=== PATIENT | female | born 1950 | race Caucasian/White ===

== ENCOUNTER 2018-07-18 09:26 | Inpatient (IN) ==
--- NOTE | 2018-07-18 10:38 | Emergency Department Note ---
Wound/Laceration HPI - General Chief Complaint: Wound/Laceration Stated Complaint: right ankle wound Time Seen by Provider: 07/18/18 10:04 Source: patient Mode of arrival: wheelchair Limitations: physical limitation - History of Present Illness HPI Narrative: 67-year-old female in ED referred from wound care due to open right ankle wound. Dr. Rowan assessed patient this morning in his clinic and advised she'll need surgical cleaning. May 2018 patient had right ankle fracture which was surgically repaired. Patient does live in assisted living in [place]. - Related Data Home Medications Medication Instructions Recorded Confirmed Acetaminophen [Tylenol] 650 mg PO Q4-6HP PRN 06/03/18 06/03/18 Calcium Carbonate [Tums] 200 mg PO PRN PRN 06/03/18 06/03/18 Clotrimazole Crm 1% [Mycelex Crm 1 dose TOPICAL ONCE 06/03/18 07/18/18 1%] Docusate Sodium [Colace] 100 mg PO BID PRN 06/03/18 07/18/18 Lactobacillus Acidophilus 1 each PO DAILY 06/03/18 07/18/18 [Acidophilus Lactobacilli] Levothyroxine [Synthroid] 75 mcg PO DAILY 06/03/18 07/18/18 Lisinopril [Zestril] 2.5 mg PO HS 06/03/18 06/03/18 OLANZapine [Olanzapine Odt] 20 mg PO HS 06/03/18 07/18/18 OXcarbazepine [Trileptal] 300 mg PO BID 06/03/18 06/03/18 Polyethylene Glycol 3350 [Miralax] 17 gm PO DAILY PRN 06/03/18 07/18/18 Pravastatin [Pravachol] 20 mg PO HS 06/03/18 07/18/18 QUEtiapine FUMARATE [Quetiapine 300 mg PO HS 06/03/18 07/18/18 Fumarate ER] Ranitidine HCl [Acid Corporate Legal Secretary] 150 mg PO BID 06/03/18 06/03/18 clonazePAM [KlonoPIN] 1 mg PO TID 06/03/18 07/18/18 oxyCODONE HCL [Oxycodone HCl] 5 mg PO PRN PRN 06/03/18 07/18/18 Cephalexin [Keflex] 500 mg PO QID 07/18/18 07/18/18 Emollient Base [Emollient] 500 gm TP PRN PRN 07/18/18 07/18/18 QUEtiapine FUMARATE [Seroquel Xr] 50 mg PO BID 07/18/18 07/18/18 Sodium Fluoride [Prevident 5000] 100 ml DT BID 07/18/18 07/18/18 Previous Rx's Medication Instructions Recorded Hydrocodone/APAP 7.5/325Mg [[place] 1 - 2 tab PO Q4HP PRN #60 tab 06/03/18 7.5-325Mg] Allergies Allergy/AdvReac Type Severity Reaction Status Date / Time chlorpromazine Allergy Mild Hives Verified 07/18/18 09:31 [From Thorazine] alcohol Allergy Unknown Unknown Verified 07/18/18 09:31 Review of Systems All systems ED: reviewed and negative except as stated. Past Medical History - Past Medical History Medical history: Reports: DM (type 2), GERD, hyperlipidemia, hypothyroidism Psychiatric history: Reports: anxiety, depression, bipolar, schizophrenia - Social History smoking status: Never smoker Physical Exam Limitations: no limitations General appearance: alert, in no apparent distress Head: atraumatic, normocephalic, normal inspection Eye: Present: normal appearance, PERRL, EOMI. Absent: conjunctival injection ENT: normal oropharynx, mucous membranes moist, TM's normal bilaterally, normal external ear exam Neck: Present: normal inspection. Absent: tenderness, lymphadenopathy Chest: Present: normal inspection, symmetric chest wall rise. Absent: tenderness Respiratory: Present: normal lung sounds bilaterally. Absent: respiratory distress, rales/crackles, wheezes Cardiovascular: Present: regular rate, normal rhythm. Absent: systolic murmur, diastolic murmur Abdominal: Present: soft, normal bowel sounds. Absent: distention, tenderness, guarding, rebound, rigidity Ankle: Present: other (right medial ankle 4cm x3cm x 0.4 depth Full thickness purulent discharge) Neurological: Present: alert, oriented X3 Psychiatric: Present: flat affect, poor eye contact Skin: Present: warm, dry, normal color. Absent: cool, diaphoretic Course Vital Signs Temperature 97.3 F 07/18/18 09:26 Pulse Rate 80 07/18/18 09:26 Respiratory Rate 18 07/18/18 09:26 Blood Pressure 118/81 07/18/18 09:26 Pulse Oximetry (%) 95 07/18/18 09:26 Temperature 97.3 F 07/18/18 09:26 Pulse Rate 80 07/18/18 09:26 Respiratory Rate 18 07/18/18 09:26 Blood Pressure 118/81 07/18/18 09:26 Pulse Oximetry (%) 95 07/18/18 09:26 Wound/Laceration - [facility] Narrative Medical decision making narrative: WBC 5.7, lactic acid 0.9, sodium 142, potassium 4.8, BUN 29, creatinine 1.4, alkaline phosphatase 212, C reactive protein 1.6, ESR still pending. Patient was provided 1 L normal saline. Consulted with who is in contact with Dr. Velasquez. He advised he would do the surgery tomorrow, if we could get her admitted. was briefly consulted by . assessed patient and admitted. - Medical Records Medical records reviewed: Yes I reviewed the patient's medical records. 06/03/18 patient had right closed bimalleolar ankle fracture, patient went to surgery and had open treatment internal fixation of right bimalleolar closed ankle fracture conducted by Dr. Velasquez. Patient was discharged home same day. - Lab Data Result diagrams: 07/18/18 09:45 07/18/18 09:45 Lab Results 07/18/18 07/18/18 07/18/18 Range/Units 09:45 09:45 09:45 WBC 5.7 (4.5-11.0) K/mcL RBC 4.51 (4.00-5.20) M/mcL Hgb 13.3 (12.0-15.0) g/dL Hct 41.4 (36.0-48.0) % MCV 91.8 (80.0-100.0) fL MCH 29.4 (26.0-34.0) pg MCHC 32.1 (31.0-36.0) g/dL RDW 14.5 (11.5-14.5) % Plt Count 208 (140-440) K/mcL MPV 8.1 (7.4-10.4) fL Gran % 65.9 (38.0-78.0) % Lymph % (Auto) 20.7 (15.5-49.0) % [place] % (Auto) 6.8 (1.0-12.0) % Eos % (Auto) 5.9 (0.0-7.0) % Baso % (Auto) 0.7 (0.0-2.0) % Gran # 3.7 (1.8-8.0) K/mcL Lymph # (Auto) 1.2 L (1.5-4.8) K/mcL [place] # (Auto) 0.4 (0.1-0.9) K/mcL Eos # (Auto) 0.3 (0.0-0.7) K/mcL Baso # (Auto) 0 (0.0-0.3) K/mcL ESR 47 H (0-20) mm/hr VBG Lactic Acid 0.9 (0.5-2.0) mmol/L Sodium 142 (133-145) mmol/L Potassium 4.8 (3.3-5.1) mmol/L Chloride 103 (96-108) mmol/L Carbon Dioxide 26 (22-30) mmol/L Anion Gap 13.0 (8-16) BUN 29 H (8-23) mg/dl Creatinine 1.4 H (0.6-1.1) mg/dl GFR Calculation 39 Glucose 100 (70-105) mg/dL Calcium 10.0 (8.6-10.4) mg/dl Total Bilirubin 0.2 (0.0-1.0) mg/dL AST 11 (0-37) U/l ALT 10 (0-40) U/l Alkaline Phosphatase 212 H (39-117) U/L C-Reactive Protein 1.6 H (0.0-0.8) mg/dl Total Protein 8.4 (5.9-8.4) gm/dL Albumin 4.2 (3.2-5.2) gm/dL Globulin 4.2 H (2.2-3.7) gm/dL Albumin/Globulin Ratio 1.0 (1.0-2.3) - Radiology Data Radiology results reviewed: Yes I reviewed the patient's radiology results. right ankle XR: TECHNIQUE: AP, oblique, lateral right ankle COMPARISON: None. FINDINGS: Status post open reduction and internal fixation of a bimalleolar fracture. There is a dynamic compression plate on the distal right fibula. There are 2 cancellous screws within the medial malleolus. There is soft tissue irregularity overlying the medial aspects of the right ankle. There are 2 areas of lucency within the medial cortex of the distal right tibia. Osteomyelitis is possible. There is no soft tissue gas. Distal fibula is negative except for the plate and screw fixation device. Talus is negative. No plain film evidence for tibiotalar joint effusion. Calcaneus is negative. IMPRESSION: 1. Two focal lucencies within the medial cortex of the distal right tibia. Osteomyelitis is possible 2. Status post open reduction and internal fixation of bimalleolar fracture. Disposition Pt seen by PLANT CARE WORKER/PA only: No (Chin) Clinical Impression: Infection of joint of ankle Disposition: Xfer As Inpt ([facility]) Condition: Fair Time of Disposition: 15:02
--- NOTE | 2018-07-18 10:46 | XRay Report ---
CLINICAL INFORMATION: Status post open reduction and internal fixation of right ankle fracture. Procedure was performed on 06/12/2018. Surgical wound has not healed TECHNIQUE: AP, oblique, lateral right ankle COMPARISON: None. FINDINGS: Status post open reduction and internal fixation of a bimalleolar fracture. There is a dynamic compression plate on the distal right fibula. There are 2 cancellous screws within the medial malleolus. There is soft tissue irregularity overlying the medial aspects of the right ankle. There are 2 areas of lucency within the medial cortex of the distal right tibia. Osteomyelitis is possible. There is no soft tissue gas. Distal fibula is negative except for the plate and screw fixation device. Talus is negative. No plain film evidence for tibiotalar joint effusion. Calcaneus is negative. IMPRESSION: 1. Two focal lucencies within the medial cortex of the distal right tibia. Osteomyelitis is possible 2. Status post open reduction and internal fixation of bimalleolar fracture. Interpreted and Authenticated by: Dung Wilson 07/18/18
[2018-07-18 10:53] LABS: Basophils # (Auto) 0 K/mcL (0.0-0.3); Basophils % (Auto) 0.7 % (0.0-2.0); Eosinophils # (Auto) 0.3 K/mcL (0.0-0.7); Eosinophils % (Auto) 5.9 % (0.0-7.0); Granulocytes % (Auto) 65.9 % (38.0-78.0); Lymphocytes # (Auto) 1.2 K/mcL (1.5-4.8); Lymphocytes % (Auto) 20.7 % (15.5-49.0); Mean Cell Volume 91.8 fL (80.0-100.0); Mean Corpuscular HGB Conc 32.1 g/dL (31.0-36.0); Monocytes # (Auto) 0.4 K/mcL (0.1-0.9); Monocytes % (Auto) 6.8 % (1.0-12.0); Platelet Count 208 K/mcL (140-440); RBC 4.51 M/mcL (4.00-5.20); Red Cell Distribution Width 14.5 % (11.5-14.5)
[2018-07-18 11:15] LABS: ALT/SGPT 10 U/l (0-40); Albumin 4.2 gm/dL (3.2-5.2); Alkaline Phosphatase 212 U/L (39-117); Blood Urea Nitrogen 29 mg/dl (8-23); C-Reactive Protein 1.6 mg/dl (0.0-0.8)
[2018-07-18] MEDS ORDERED: 0.9 % SODIUM CHLORIDE 1,000 ML IV ONE (11:27)
[2018-07-18 12:36] LABS: Erythrocyte Sedimentation Rate 47 mm/hr (0-20)
--- NOTE | 2018-07-18 14:30 | Internal Med History&Physical ---
Medical - H&P: HPI Patient information: Note initiated : 07/18/18 at 2:26 pm Service Date, if different from initiated Date: [] Patient: Yanni Topete a 67 y/o F admitted on for Rt Ankle Wound. Chief Complaint: [] History of present illness: Ms. Topete is a 67 year old F with history of bipolar disorder, chronic kidney disease presents to the hospital today for evaluation of her right lower extremity wound. The patient had history of fall in May, at which time she twisted her ankle and developed a complex fracture of the right ankle. She was operated by Dr. Velasquez in May and underwent an open reduction and internal fixation of the fracture. The patient was discharged subsequently. The patient apparently was managing her right lower extremity wound and blister however the patient's wound got progressively worse. There was some pussy discharge and she was seen in the wound care clinic today. In the wound care clinic on speaking with the wound care physician there was pus, and the wound looked infected. The patient was therefore sent to the emergency room for further evaluation. In the emergency room the patient is afebrile, hemodynamically stable, labs are stable kidney function is at baseline at around 1.3 -1.4. Patient has minimal pain on the right lower extremity with movement otherwise no other acute complaints or concerns. The wound care physician is the primary provider managing this patient, patient to be taken to the OR for cleanup and debridement by Dr. Velasquez tomorrow morning. Hospitalist has been consulted to help manage the logistics of inpatient stay. Wound care physician has been consulted by the wound care provider. Review of systems: CONSTITUTIONAL: No weight loss, fever, chills, weakness or fatigue. HEENT: Eyes: No visual loss, blurred vision, double vision or yellow sclerae. Ears, Nose, Throat: No hearing loss, sneezing, congestion, runny nose or sore throat. SKIN: No rash or itching. CARDIOVASCULAR: No chest pain, chest pressure or chest discomfort. No palpitations or edema. RESPIRATORY: No shortness of breath, cough or sputum. GASTROINTESTINAL: No nausea, vomiting or diarrhea or constipation. No abdominal pain or blood in stools No Pat. GENITOURINARY: Denies Burning on urination. Blood in urine, or foul smelling urine NEUROLOGICAL: No headache, dizziness, syncope, paralysis, tremors, numbness or tingling in the extremities. No change in bowel or bladder control. MUSCULOSKELETAL: No muscle, back pain, joint pain or stiffness. Right leg pain. HEMATOLOGIC: No bleeding or bruising. No enlarged nodes PSYCHIATRIC: bipolar disroder, anxiety present. ENDOCRINOLOGIC: No reports of sweating, cold or heat intolerance. No polyuria or polydipsia. ALLERGIES: No hives, eczema or rhinitis. Skin: No rash, no jaundice, cyanosis or pallor. Medical - H&P: PMH Medical history: Bipolar disorder CKD Hypothyroidism Overweight. BMI 27.9 Surgical history: right foot ankle surgery, this may right hip fracture last year Social history: lives in [facility] ambulates with walker no h/o etoh use no h/o smoking Medical - H&P: Meds Home Medications Medication Instructions Recorded Confirmed Type Acetaminophen [Tylenol] 650 mg PO Q4-6HP PRN 06/03/18 06/03/18 History Calcium Carbonate [Tums] 200 mg PO PRN PRN 06/03/18 06/03/18 History Clotrimazole Crm 1% [Mycelex Crm 1 dose TOPICAL ONCE 06/03/18 07/18/18 History 1%] Docusate Sodium [Colace] 100 mg PO BID PRN 06/03/18 07/18/18 History Hydrocodone/APAP 7.5/325Mg [[place] 1 - 2 tab PO Q4HP PRN #60 tab 06/03/18 Rx 7.5-325Mg] Lactobacillus Acidophilus 1 each PO DAILY 06/03/18 07/18/18 History [Acidophilus Lactobacilli] Levothyroxine [Synthroid] 75 mcg PO DAILY 06/03/18 07/18/18 History Lisinopril [Zestril] 2.5 mg PO HS 06/03/18 06/03/18 History OLANZapine [Olanzapine Odt] 20 mg PO HS 06/03/18 07/18/18 History OXcarbazepine [Trileptal] 300 mg PO BID 06/03/18 06/03/18 History Polyethylene Glycol 3350 [Miralax] 17 gm PO DAILY PRN 06/03/18 07/18/18 History Pravastatin [Pravachol] 20 mg PO HS 06/03/18 07/18/18 History QUEtiapine FUMARATE [Quetiapine 300 mg PO HS 06/03/18 07/18/18 History Fumarate ER] Ranitidine HCl [Acid Food Technician] 150 mg PO BID 06/03/18 06/03/18 History clonazePAM [KlonoPIN] 1 mg PO TID 06/03/18 07/18/18 History oxyCODONE HCL [Oxycodone HCl] 5 mg PO PRN PRN 06/03/18 07/18/18 History Cephalexin [Keflex] 500 mg PO QID 07/18/18 07/18/18 History Emollient Base [Emollient] 500 gm TP PRN PRN 07/18/18 07/18/18 History QUEtiapine FUMARATE [Seroquel Xr] 50 mg PO BID 07/18/18 07/18/18 History Sodium Fluoride [Prevident 5000] 100 ml DT BID 07/18/18 07/18/18 History Allergies Allergy/AdvReac Type Severity Reaction Status Date / Time chlorpromazine Allergy Mild Hives Verified 07/18/18 09:31 [From Thorazine] alcohol Allergy Unknown Unknown Verified 07/18/18 09:31 Medical - H&P: Exam - Constitutional Vitals: Temp Pulse Resp BP Pulse Ox 97.3 F 80 18 118/81 95 07/18/18 09:26 07/18/18 09:26 07/18/18 09:26 07/18/18 09:26 07/18/18 09:26 Exam: GENERAL: The patient is a well-developed, well-nourished in no apparent distress. Is alert and oriented x3. VITAL SIGNS: Reviewed and as noted elsewhere. HEENT: Head is normocephalic and atraumatic. Extraocular muscles are intact. Pupils are equal, round, and reactive to light. Nares appeared normal. Mouth appears any without lesions. Mucous membranes are moist. NECK: Normal to inspection, Supple, No lymphadenopathy or thyromegaly. LUNGS: Air entry equal on both sides, no wheezing, crackles or rhonchi noted. No accessory muscles of respiration HEART: Regular rate and rhythm normal, S1 and S2 heard, no Gallop, S3 or Rub Noted, No Gross murmur heard. ABDOMEN: Soft, nontender, and nondistended. Positive bowel sounds. No hepatosplenomegaly was noted. EXTREMITIES: No cyanosis, clubbing, rash, lesions or edema. Right leg, has large ifnected ulcer on the medial malleolus, yellowish base, so me foul smell, hardware for joint repair visible, see pictures for further detail. NEUROLOGIC: Cranial nerves II through XII are grossly intact. Motor and Sensory System Grossly Intact PSYCHIATRIC: flat affect, Normal Mood. Appropriate Behavior. SKIN: No ulceration or wounds noted, No jaundice, No rash noted. Medical - H&P: Reslt - Labs CBC & Chem 7: 07/18/18 09:45 07/18/18 09:45 Labs: Short CBC 07/18/18 Range/Units 09:45 WBC 5.7 (4.5-11.0) K/mcL Hgb 13.3 (12.0-15.0) g/dL Hct 41.4 (36.0-48.0) % Plt Count 208 (140-440) K/mcL BMP 07/18/18 09:45 Sodium 142 Potassium 4.8 Chloride 103 Carbon Dioxide 26 BUN 29 H Creatinine 1.4 H Glucose 100 Calcium 10.0 Liver Function 07/18/18 Range/Units 09:45 Total Bilirubin 0.2 (0.0-1.0) mg/dL AST 11 (0-37) U/l ALT 10 (0-40) U/l Alkaline Phosphatase 212 H (39-117) U/L Albumin 4.2 (3.2-5.2) gm/dL Medical - H&P: A/P - Narrative A/P Narrative: A/P] Post operative infection Distal Tibia 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 -Plan per Dr Velasquez and Dr Keane -Patient has no e/o systemic infection, I do not see urgent need for antibiotics at this time. -Antibiotic Management per Dr Winter Pre op eval -Patient has poor effort tolerance due to her present condition, -no chest pain, no shortness of breath -RCRI score of 0 -Low risk from cardiovascualr stand point, get baseline EKG and X ray chest CKD -Creat at baseilne, attributed to use of lithium as per patient, med list do es nto show lithium, will check levels to confirm. Bipolar disorder -stable, resume home meds Overweight/ BMI 27.9 Hypothyriodism -stable chr conditions, outpatient follow up DVT hep x 1, hold for surgery tomorrow Diet REgular, NPO MN Full code.
[2018-07-18] MEDS ORDERED: NALOXONE HCL 0.4 MG/ML VIAL IV PRN (14:56)
[2018-07-18] MEDS ORDERED: HEPARIN 5,000 UNIT/ML VIAL SQ ONE (14:56)
[2018-07-18] MEDS ORDERED: ONDANSETRON 4 MG/2 ML VIAL IV PRN (14:56)
[2018-07-18] MEDS ORDERED: POLYETHYLENE GLYCOL 3350 17 GM PACKET PO PRN (14:56)
--- NOTE | 2018-07-18 15:28 | XRay Report ---
INDICATION: Preoperative evaluation TECHNIQUE: AP chest x-ray,portable upright COMPARISON: None FINDINGS:There is right convex thoracic scoliosis. No acute or focal pulmonary parenchymal infiltrate. No parenchymal mass. Heart size and vascularity are normal. Lamar and mediastinum are negative. There is no pleural fluid. No acute abnormality. IMPRESSION: No acute abnormality Interpreted and Authenticated by: Dung Wilson 07/18/18
[2018-07-18] MEDS: clonazePAM 1 MG TABLET PO SCH ×2 (15:30→21:01)
[2018-07-18] MEDS: LACTATED RINGERS 1,000 ML IV SCH (15:31)
--- NOTE | 2018-07-18 17:27 | General Surgery Consult Note ---
History of Present Illness Patient information: Note initiated : 07/18/18 at 5:19 pm Service Date, if different from initiated Date: [] Patient: Yanni Topete 67 y/o F admitted on 07/18/18 for Rt Ankle Wound. Chief Complaint: [] Consult date: 07/18/18 Requesting physician: Ronald Merritt (wound management right lower medial leg) History of present illness: Patient is a 67-year-old female. She is status post ORIF of right ankle for a traumatic bimalleolar injury due to a fall, requiring ORIF with 2 screws over the medial malleolus and a long plate for fibula and screws for the lateral malleolus fracture. Surgery was over 5 weeks ago. Patient is a resident of assisted living facility in [place], [place]. Caregiver brought her to the wound clinic for evaluation of nonhealing open wound with copious green purulent drainage, necrotic soft tissue and exposed bone and joint space. Keflex antibiotic is NOT helping her. Patient is nonsmoker and nonalcoholic. I discussed her presentation with ANGELICA Lao, operating surgeon. Plan is to have this patient admitted to the hospitalist service and consult wound care, infectious disease and orthopedic services. Dr. Velasquez is planning on taking this patient to the operating room tomorrow for debridement, pulse lavage irrigation and deep tissue samples for cultures and sensitivities. Preoperative orders for skin preparation and antibiotic choice recommendations are entered in EHR. Preoperative surgical consent orders are awaited from Dr. Velasquez, operating surgeon. Medications and Allergies Home Medications Medication Instructions Recorded Confirmed Type Acetaminophen [Tylenol] 650 mg PO Q4-6HP PRN 06/03/18 06/03/18 History Calcium Carbonate [Tums] 200 mg PO PRN PRN 06/03/18 06/03/18 History Clotrimazole Crm 1% [Mycelex Crm 1 dose TOPICAL ONCE 06/03/18 07/18/18 History 1%] Docusate Sodium [Colace] 100 mg PO BID PRN 06/03/18 07/18/18 History Hydrocodone/APAP 7.5/325Mg [[place] 1 - 2 tab PO Q4HP PRN #60 tab 06/03/18 Rx 7.5-325Mg] Lactobacillus Acidophilus 1 each PO DAILY 06/03/18 07/18/18 History [Acidophilus Lactobacilli] Levothyroxine [Synthroid] 75 mcg PO DAILY 06/03/18 07/18/18 History Lisinopril [Zestril] 2.5 mg PO HS 06/03/18 06/03/18 History OLANZapine [Olanzapine Odt] 20 mg PO HS 06/03/18 07/18/18 History OXcarbazepine [Trileptal] 300 mg PO BID 06/03/18 06/03/18 History Polyethylene Glycol 3350 [Miralax] 17 gm PO DAILY PRN 06/03/18 07/18/18 History Pravastatin [Pravachol] 20 mg PO HS 06/03/18 07/18/18 History QUEtiapine FUMARATE [Quetiapine 300 mg PO HS 06/03/18 07/18/18 History Fumarate ER] Ranitidine HCl [Acid [place]] 150 mg PO BID 06/03/18 06/03/18 History clonazePAM [KlonoPIN] 1 mg PO TID 06/03/18 07/18/18 History oxyCODONE HCL [Oxycodone HCl] 5 mg PO PRN PRN 06/03/18 07/18/18 History Cephalexin [Keflex] 500 mg PO QID 07/18/18 07/18/18 History Emollient Base [Emollient] 500 gm TP PRN PRN 07/18/18 07/18/18 History QUEtiapine FUMARATE [Seroquel Xr] 50 mg PO BID 07/18/18 07/18/18 History Sodium Fluoride [Prevident 5000] 100 ml DT BID 07/18/18 07/18/18 History Allergies Allergy/AdvReac Type Severity Reaction Status Date / Time chlorpromazine Allergy Mild Hives Verified 07/18/18 09:31 [From Thorazine] alcohol Allergy Unknown Unknown Verified 07/18/18 09:31 Apple Allergy Unknown Unknown Verified 07/18/18 17:28 Exam Temp Pulse Resp BP Pulse Ox 97.3 F 84 16 116/75 92 07/18/18 09:26 07/18/18 15:01 07/18/18 15:01 07/18/18 15:01 07/18/18 15:01 - General physical appearance well developed, well nourished, no distress - Eyes PERRL, normal ocular movement - ENT normal pinna, normal nares, normal mucosa, no congestion - Head Head exam IM: Present: atraumatic, normal inspection, normocephalic - Neck no masses, trachea midline - Cardiovascular Cardiovascular exam IM: Present: normal rate and rhythm - Respiratory clear to auscultation - Abdomen Abdomen: Present: soft, non tender, bowel sounds - Integumentary Present: other (Chronic posttraumatic inflammatory changes right lower half of leg. Open wound right medial leg or the malleolus side with exposed necrotic soft tissue, open joint space and green-yellow purulent drainage. There are 2 other open wounds proximal to this open wound. Granulation base. ) - Neurologic Present: other (No focal neurological deficits. Detailed examination NOT done. ) - Musculoskeletal Present: other (NWB. OPEN post surgical wound right lower medial leg with exposed necrotic tissue, bone and joint space.) - Psychiatric Present: oriented to time, oriented to person, oriented to place (Per CG from [facility], Patient maryanne admitted to hospital and later to REHAB. ), speech is normal, memory intact Results - Labs 07/18/18 09:45 07/18/18 09:45 Abnormal lab results 07/18/18 07/18/18 Range/Units 09:45 09:45 Lymph # (Auto) 1.2 L (1.5-4.8) K/mcL ESR 47 H (0-20) mm/hr BUN 29 H (8-23) mg/dl Creatinine 1.4 H (0.6-1.1) mg/dl Alkaline Phosphatase 212 H (39-117) U/L C-Reactive Protein 1.6 H (0.0-0.8) mg/dl Globulin 4.2 H (2.2-3.7) gm/dL Diabetes panel 07/18/18 Range/Units 09:45 Sodium 142 (133-145) mmol/L Potassium 4.8 (3.3-5.1) mmol/L Chloride 103 (96-108) mmol/L Carbon Dioxide 26 (22-30) mmol/L BUN 29 H (8-23) mg/dl Creatinine 1.4 H (0.6-1.1) mg/dl Glucose 100 (70-105) mg/dL Calcium 10.0 (8.6-10.4) mg/dl AST 11 (0-37) U/l ALT 10 (0-40) U/l Alkaline Phosphatase 212 H (39-117) U/L Total Protein 8.4 (5.9-8.4) gm/dL Albumin 4.2 (3.2-5.2) gm/dL Calcium panel 07/18/18 Range/Units 09:45 Calcium 10.0 (8.6-10.4) mg/dl Albumin 4.2 (3.2-5.2) gm/dL Pituitary panel 07/18/18 Range/Units 09:45 Sodium 142 (133-145) mmol/L Potassium 4.8 (3.3-5.1) mmol/L Chloride 103 (96-108) mmol/L Carbon Dioxide 26 (22-30) mmol/L BUN 29 H (8-23) mg/dl Creatinine 1.4 H (0.6-1.1) mg/dl Glucose 100 (70-105) mg/dL Calcium 10.0 (8.6-10.4) mg/dl Adrenal panel 07/18/18 Range/Units 09:45 Sodium 142 (133-145) mmol/L Potassium 4.8 (3.3-5.1) mmol/L Chloride 103 (96-108) mmol/L Carbon Dioxide 26 (22-30) mmol/L BUN 29 H (8-23) mg/dl Creatinine 1.4 H (0.6-1.1) mg/dl Glucose 100 (70-105) mg/dL Calcium 10.0 (8.6-10.4) mg/dl Total Bilirubin 0.2 (0.0-1.0) mg/dL AST 11 (0-37) U/l ALT 10 (0-40) U/l Alkaline Phosphatase 212 H (39-117) U/L Total Protein 8.4 (5.9-8.4) gm/dL Albumin 4.2 (3.2-5.2) gm/dL All other labs normal. Assessment and Plan (1) Complication due to device, implant, or graft Assessment: CHRONIC SEPSIS after surgery with wound dehiscence at site of ORIF and hardware placement. Plan: Await OR surgical debridement, pulse lavage irrigation and deep tissue for cultures and sensitivity. WILL FOLLOW PATIENT POST OPERATIVELY FOR WOUND CARE, WOUND MANAGEMENT, VAC or other indicated intervention. Status: Acute Priority: High Qualifiers: Encounter type: initial encounter Qualified Code(s): T85.9XXA - Unspecified complication of internal prosthetic device, implant and graft, initial encounter
--- NOTE | 2018-07-18 20:07 | Consultation ---
DATE OF CONSULTATION: 07/18/2018 REASON FOR CONSULTATION: Right ankle wound evaluation REQUESTING PHYSICIAN: Dr. Mcdonald. CONSULTING PHYSICIAN: Dr. Velasquez. HISTORY: This is a 67-year-old female who fell injuring her ankle for which we did an open treatment and internal fixation of the ankle on 06/03/2018. She postoperatively continued to have some wound issues. She had some blistering. We were trying to just manage this conservatively. She then presented to the clinic last week looking significantly worse. My physician personnel assistant sent her to wound care for a wound consult. Dr. Mcdonald then contacted me today feeling that the patient needed surgical debridement. The patient does not have significant complaints other than the wound being difficult to heal. PAST MEDICAL HISTORY: Bipolar disorder, chronic kidney disease, hypothyroidism. PAST SURGICAL HISTORY: The right ankle surgery, 06/03/2018, does have a history of hip fracture surgery. MEDICATIONS: Tylenol, Colace, hydrocodone 7.5, levothyroxine, lisinopril, olanzapine, Trileptal, MiraLax, Pravachol, quetiapine, ranitidine, clonazepam, Keflex, Seroquel. ALLERGIES: CHLORPROMAZINE. SOCIAL HISTORY: She lives in a [facility] facility in [place]. No tobacco or alcohol use. REVIEW OF SYSTEMS: Negative for fever or chills. PHYSICAL EXAMINATION: VITAL SIGNS: On admission, temperature 97.3, pulse 80, respirations 18, blood pressure 118/81, pulse 95. GENERAL: She appears her stated age in no acute distress. EXTREMITIES: Right lower extremity on inspection reveals a skin discoloration. There is a large wound over the medial malleolus. Based off of pictures with some necrotic tissue, sensation intact at distal, and capillary refill is brisk. LABORATORY DATA: Her white blood cell count is normal at 5.7. However, her erythrocyte sedimentation rate is elevated at 47. Her C-reactive protein is 1.6. IMPRESSION: Infected right ankle wound with some necrosis nearly for a month and a half, status post open reduction internal fixation of a closed bimalleolar fracture in a 67-year-old female. PLAN: I will proceed with surgical irrigation and debridement tomorrow and likely start her on a wound VAC. At that point, vascular studies, I think, are reasonable given Dr. Keane's plan on consulting Dr. Ho. BJB:in Job ID: [id number] Doc ID: [id number] Fernando Velasquez MD
[2018-07-18] MEDS: Oxcarbazepine [Trileptal] 600 mg Tab PO SCH (21:00)
[2018-07-18] MEDS: FAMOTIDINE 20 MG TABLET PO SCH (21:01)
[2018-07-18] MEDS: OLANZapine 5 MG TABLET PO SCH (21:01)
[2018-07-18] MEDS: SIMVASTATIN 10 MG TABLET PO SCH (21:01)
[2018-07-18] MEDS: 0.9 % SODIUM CHLORIDE 10 ML SYRINGE IV SCH (21:02)
[2018-07-19] MEDS: LACTATED RINGERS 1,000 ML IV SCH ×2 (05:50→15:08)
[2018-07-19 06:17] LABS: Basophils # (Auto) 0 K/mcL (0.0-0.3); Basophils % (Auto) 0.7 % (0.0-2.0); Eosinophils # (Auto) 0.4 K/mcL (0.0-0.7); Eosinophils % (Auto) 8.1 % (0.0-7.0); Granulocytes % (Auto) 49.2 % (38.0-78.0); Lymphocytes # (Auto) 1.5 K/mcL (1.5-4.8); Lymphocytes % (Auto) 29.9 % (15.5-49.0); Mean Cell Volume 92.7 fL (80.0-100.0); Mean Corpuscular HGB Conc 31.8 g/dL (31.0-36.0); Monocytes # (Auto) 0.6 K/mcL (0.1-0.9); Monocytes % (Auto) 12.1 % (1.0-12.0); Platelet Count 172 K/mcL (140-440); RBC 3.91 M/mcL (4.00-5.20); Red Cell Distribution Width 14.6 % (11.5-14.5)
[2018-07-19 06:28] LABS: ALT/SGPT 7 U/l (0-40); Albumin 3.1 gm/dL (3.2-5.2); Albumin/Globulin Ratio 0.9 (1.0-2.3); Alkaline Phosphatase 179 U/L (39-117); Bilirubin,Direct < 0.2 mg/dL (0.0-0.3); Blood Urea Nitrogen 24 mg/dl (8-23); Gamma Glutamyl Transpeptidase 24 U/L (5-36); Uric Acid 6.2 mg/dL (2.5-8.0)
[2018-07-19] MEDS ORDERED: PIPERACILLIN SODIUM/TAZOBACTAM 3.375 GM in DEXTROSE 5% IN WATER 50 ML IV SCH (06:30)
[2018-07-19] MEDS ORDERED: VANCOMYCIN 1,000 MG in 0.9 % SODIUM CHLORIDE 250 ML IV SCH (06:30)
[2018-07-19] MEDS: LEVOTHYROXINE 75 MCG TABLET PO SCH (06:55)
[2018-07-19] MEDS: 0.9 % SODIUM CHLORIDE 10 ML SYRINGE IV SCH ×4 (06:55→21:48)
--- NOTE | 2018-07-19 07:14 | Emergency Department Note ---
ED Note Addendum Note Addendum: Agree with diagnosis and treatment and the need for admission
--- NOTE | 2018-07-19 08:29 | Infectious Disease Consult ---
History of Present Illness Patient information: Note initiated : 07/19/18 at 8:24 am Service Date, if different from initiated Date: [] Patient: Yanni Topete 67 y/o F admitted on 07/18/18 for Rt Ankle Wound. Chief Complaint: [] Consult date: 07/18/18 (evening) Requesting Physician: Ronald Merritt Reason for Consult: RT ankle infection Chief complaint: my right ankle surgery wound did not heal History of present illness: 67 year old lady with PMHx pertinent for: - right bimalleolar closed ankle fracture, s/p ORIF in 05/2018 - bipolar disorder - chronic kidney disease Pt was admitted to [facility] from wound care clinic for suspicion for right ankle osteomyelitis and hardware infection. Pt noticed that after her surgery right ankle wound did not heal. She was seen in wound care clinic on 07/18 from where she was asked to get admitted for surgical debridement at [facility]. Pt denied any fever, chills, n/v, trauma to the wound, contact with pets. She just remembers that the wound did not heal after surgery. She has been afebrile, with normal WBCs. She recieved periop Cefazolin IV, and was started on IV Vanc and IV Cefepime afterwards. Review of Systems All systems PM: reviewed and no additional remarkable complaints except as stated Past History Past family history: not pertinent to current presentation Past social history: lives by herself in a [facility]iary home in [place], [place] doesnot smoke, use alc or any IV drugs Medications and Allergies Home Medications Medication Instructions Recorded Confirmed Type Acetaminophen [Tylenol] 650 mg PO Q4-6HP PRN 06/03/18 06/03/18 History Calcium Carbonate [Tums] 200 mg PO PRN PRN 06/03/18 06/03/18 History Clotrimazole Crm 1% [Mycelex Crm 1 dose TOPICAL ONCE 06/03/18 07/18/18 History 1%] Docusate Sodium [Colace] 100 mg PO BID PRN 06/03/18 07/18/18 History Hydrocodone/APAP 7.5/325Mg [Bureau 1 - 2 tab PO Q4HP PRN #60 tab 06/03/18 Rx 7.5-325Mg] Lactobacillus Acidophilus 1 each PO DAILY 06/03/18 07/18/18 History [Acidophilus Lactobacilli] Levothyroxine [Synthroid] 75 mcg PO DAILY 06/03/18 07/18/18 History Lisinopril [Zestril] 2.5 mg PO HS 06/03/18 06/03/18 History OLANZapine [Olanzapine Odt] 20 mg PO HS 06/03/18 07/18/18 History OXcarbazepine [Trileptal] 300 mg PO BID 06/03/18 06/03/18 History Polyethylene Glycol 3350 [Miralax] 17 gm PO DAILY PRN 06/03/18 07/18/18 History Pravastatin [Pravachol] 20 mg PO HS 06/03/18 07/18/18 History QUEtiapine FUMARATE [Quetiapine 300 mg PO HS 06/03/18 07/18/18 History Fumarate ER] Ranitidine HCl [Acid Supervisor [employer]] 150 mg PO BID 06/03/18 06/03/18 History clonazePAM [KlonoPIN] 1 mg PO TID 06/03/18 07/18/18 History oxyCODONE HCL [Oxycodone HCl] 5 mg PO PRN PRN 06/03/18 07/18/18 History Cephalexin [Keflex] 500 mg PO QID 07/18/18 07/18/18 History Emollient Base [Emollient] 500 gm TP PRN PRN 07/18/18 07/18/18 History QUEtiapine FUMARATE [Seroquel Xr] 50 mg PO BID 07/18/18 07/18/18 History Sodium Fluoride [Prevident 5000] 100 ml DT BID 07/18/18 07/18/18 History Allergies Allergy/AdvReac Type Severity Reaction Status Date / Time chlorpromazine Allergy Mild Hives Verified 07/18/18 09:31 [From Thorazine] alcohol Allergy Unknown Unknown Verified 07/18/18 09:31 Apple Allergy Unknown Unknown Verified 07/18/18 17:28 Physical Examination Vital signs: Temp Pulse Resp BP Pulse Ox 36.9 C 86 18 110/63 94 07/19/18 06:47 07/19/18 03:44 07/19/18 06:47 07/19/18 06:47 07/19/18 06:47 General appearance: no acute distress Eyes pulmonary: nonicteric Auscultation: bilateral: clear Cardiovascular: other (s1 s2 normal) normal mental status, other (has resting tremor) Rt ankle: wrapped in dressing. Pictures prior to surgery reviewed with Dr. Mcdonald Results - Laboratory Findings CBC and BMP: 07/19/18 04:25 07/19/18 04:25 Abnormal lab findings: Abnormal Labs 07/18/18 07/18/18 07/19/18 09:45 09:45 04:25 RBC 3.91 L Hgb 11.5 L RDW 14.6 H [place] % (Auto) 12.1 H Eos % (Auto) 8.1 H Lymph # (Auto) 1.2 L ESR 47 H Chloride BUN 29 H Creatinine 1.4 H Alkaline Phosphatase 212 H C-Reactive Protein 1.6 H Albumin Globulin 4.2 H Albumin/Globulin Ratio 07/19/18 04:25 RBC Hgb RDW [place] % (Auto) Eos % (Auto) Lymph # (Auto) ESR Chloride 109 H BUN 24 H Creatinine 1.2 H Alkaline Phosphatase 179 H C-Reactive Protein Albumin 3.1 L Globulin Albumin/Globulin Ratio 0.9 L Assessment and Plan - Narrative A/P Narrative: A: 1. Deep infection of right ankle tissues and tibia with hardware involvement: Hx of ORIF approximately 7 weeks ago. - POD #0, s/p I & D and removal of 2 screws, with findings of "necrotic tendon and soft tissue with exposed screw heads and nonunion of the medial fracture" - operative Cx sent 2. No sepsis: q-SOFA score 0 Recommendations: - Start IV Vancomycin per pharmacy assisted dosing [target trough level before the 4th dose: 15-20] - Start IV Cefepime 2 gm q8 hrs - will deescalate per operative Cx - Consider PICC line placement - send MRSA nasal swab will follow Velasquez Winter M.D. Infectious diseases
[2018-07-19] MEDS ORDERED: LIDOCAINE HCL/PF 100 MG/5 ML SYRINGE IV ONE (09:46)
[2018-07-19] MEDS ORDERED: ONDANSETRON 4 MG/2 ML VIAL ONE (09:46)
[2018-07-19] MEDS ORDERED: PROPOFOL 200 MG/20 ML VIAL IV ONE (09:46)
[2018-07-19] MEDS ORDERED: MIDAZOLAM 5 MG/5 ML VIAL ONE (09:46)
[2018-07-19] MEDS ORDERED: DEXAMETHASONE 10 MG/ML VIAL ONE (09:46)
[2018-07-19] MEDS ORDERED: fentaNYL 100 MCG/2 ML VIAL IV ONE (09:46)
[2018-07-19] MEDS: FAMOTIDINE 20 MG TABLET PO SCH ×2 (10:14→21:42)
[2018-07-19] MEDS: clonazePAM 1 MG TABLET PO SCH ×3 (10:14→21:42)
[2018-07-19] MEDS: Oxcarbazepine [Trileptal] 600 mg Tab PO SCH ×2 (10:14→21:42)
[2018-07-19] MEDS: LACTOBACILLUS 1 CAPSULE PO SCH (10:14)
--- NOTE | 2018-07-19 10:32 | Brief Operative Note ---
Date of procedure: 07/19/18 Pre-op diagnosis: Left ankle open medial wound 7 weeks s/p bimalleolar ankle fx orif Post-op diagnosis: other (exposed medial screws with nonunion of medial malleolar fracture) Procedure: 1)Irrigation and debridement of Right medial ankle wound 2)Hardware removal deep of 2 medial malleolar screws with washers Grafts/Implants: No Anesthesia: GLMA Findings: exposed medial screws, nonunion of medial fracture Complications: none Surgeon: Fernando Velasquez Estimated blood loss (cc): 50 Specimens Removed/Pathology: other (hardware, cx & s, bone biopsy for permanent pathology and bone cx&s) Condition: stable Disposition: PACU
[2018-07-19] MEDS ORDERED: ceFAZolin 2 GM in DEXTROSE 5% IN WATER 50 ML IV SCH (10:45)
--- NOTE | 2018-07-19 10:56 | Internal Med Progress Note ---
Medical - PN: Subj Patient information: Note initiated : 07/19/18 at 10:53 am Service Date, if different from initiated Date: [] Patient: Yanni Topete a 67 y/o F admitted on 07/18/18 for Rt Ankle Wound. Chief Complaint: [] Interval history: Ms. Topete is a 67 year old F with history of bipolar disorder, chronic kidney disease presents to the hospital today for evaluation of her right lower extremity wound. The patient had history of fall in May, at which time she twisted her ankle and developed a complex fracture of the right ankle. She was operated by Dr. Velasquez in May and underwent an open reduction and internal fixation of the fracture. The patient was discharged subsequently. The patient apparently was managing her right lower extremity wound and blister however the patient's wound got progressively worse. There was some pussy discharge and she was seen in the wound care clinic today. In the wound care clinic on speaking with the wound care physician there was pus, and the wound l ooked infected. The patient was therefore sent to the emergency room for further evaluation. In the emergency room the patient is afebrile, hemodynamically stable, labs are stable kidney function is at baseline at around 1.3 -1.4. Patient has minimal pain on the right lower extremity with movement otherwise no other acute complaints or concerns. The wound care physician is the primary provider managing this patient, patient to be taken to the OR for cleanup and debridement by Dr. Velasquez tomorrow morning. Hospitalist has been consulted to help manage the logistics of inpatient stay. Wound care physician has been consulted by the wound care provider. 07/19 Pt seen examined, no acute issues reported labs stable awaiting surgery today Pertinent ROS: Denies headache, dizziness Denies chest pain, palpitations Denies cough or shortness of breath Denies abdominal pain, nausea or vomiting. - Constitutional Vitals: Vital Signs Temp Pulse Resp BP Pulse Ox 98.5 F 85 14 121/83 100 07/19/18 10:50 07/19/18 10:50 07/19/18 10:50 07/19/18 10:50 07/19/18 10:50 Period Temp Pulse Resp BP Sys/Hoyt Pulse Ox Last 24 Hr 97.5 F-98.5 F 73-98 14-23 88-145/58-83 90-100 Intake and Output 07/18/18 07/19/18 07/19/18 21:59 05:59 13:59 Intake Total 1000 1800 1000 Output Total 600 1351 1200 Balance 400 449 -200 Weight 220 lb Intake & Output: Intake & Output 07/18/18 07/19/18 07/19/18 21:59 05:59 13:59 Intake Total 1000 1800 1000 Output Total 600 1351 1200 Balance 400 449 -200 Weight 220 lb Intake: IV 1000 1000 Sodium Chloride 0.9% 1,000 ml @ 1000 Wide Open IV BOLUS ONE Rx#: [id number] Lactated Ringers 1,000 ml @ 84 1000 mls/hr IV .[id number] STACIE Rx#: [id number] Oral 800 IV - Manual Only 1000 Output: Void Amount 600 1350 1200 # of times incontinent of urine 1 Other: Urine Appearance Clear Clear Urine Color Bright Yellow Pale Urine Odor Normal Normal # Voids 1 1 Exam: Constitutional; Afebrile, cooperative, alert, not in distress. Respiratory system: Air Entry equal on both sides, No crackles or wheezing, no rhonchi. CVS- Rate rhythm regular, S1,S2 heard, no gallop, no rub. Abdomen- Soft nontender abdomen, no organomegaly, no tenderness, no guarding or rigidity, METAL FINISHER- AOOx3, moving all extremities, no gross focal deficit noted. Medical - PN: Obj Da - Labs CBC & Chem 7: 07/19/18 04:25 07/19/18 04:25 Labs: Abnormal Lab Results 07/19/18 07/19/18 07/18/18 04:25 04:25 09:45 RBC 3.91 L Hgb 11.5 L RDW 14.6 H [place] % (Auto) 12.1 H Eos % (Auto) 8.1 H Lymph # (Auto) ESR Chloride 109 H BUN 24 H 29 H Creatinine 1.2 H 1.4 H Alkaline Phosphatase 179 H 212 H C-Reactive Protein 1.6 H Albumin 3.1 L Globulin 4.2 H Albumin/Globulin Ratio 0.9 L 07/18/18 09:45 RBC Hgb RDW [place] % (Auto) Eos % (Auto) Lymph # (Auto) 1.2 L ESR 47 H Chloride BUN Creatinine Alkaline Phosphatase C-Reactive Protein Albumin Globulin Albumin/Globulin Ratio Meds: Medications Hydrocodone Bitart/Acetaminophen ([place] 7.5/325mg) 1 - 2 tab PO Q4HP PRN PRN Reason: Pain Clonazepam (Klonopin) 1 mg PO TID [facility] Last Admin: 07/19/18 10:14 Dose: Not Given Documented by: Docusate Sodium (Colace) 100 mg PO BID PRN PRN Reason: Constipation Famotidine (Pepcid) 20 mg PO BID [facility] Last Admin: 07/19/18 10:14 Dose: Not Given Documented by: Lactated Ringer's (Lactated Ringers) 1,000 mls @ 84 mls/hr IV .[id number] [facility] Last Admin: 07/19/18 05:50 Dose: 84 mls/hr Documented by: Cefazolin Sodium 2 gm/ (Dextrose) 50 mls @ 100 mls/hr IV Q8H [facility]; Protocol Lactobacillus Rhamnosus (Culturelle) 1 cap PO DAILY [facility] Last Admin: 07/19/18 10:14 Dose: Not Given Documented by: Levothyroxine Sodium (Synthroid) 75 mcg PO QAMAC [facility] Last Admin: 07/19/18 06:55 Dose: Not Given Documented by: Naloxone HCl (Narcan) 0.1 mg IV Q2MIN PRN PRN Reason: Opiate Reversal Oxcarbazepine [ Trileptal] 600 Mg Tab 300 mg PO BID [facility] Last Admin: 07/19/18 10:14 Dose: Not Given Documented by: Olanzapine (Zyprexa) [address] [facility] Last Admin: 07/18/18 21:01 Dose: 20 mg Documented by: Ondansetron HCl (Zofran) 4 mg IV Q6HP PRN PRN Reason: Nausea And Vomiting Quetiapine Fumarate (Er 300 Mg Tab) [address] [facility] Last Admin: 07/18/18 22:32 Dose: Not Given Documented by: Quetiapine Fumarate [Seroquel Xr] 50 Mg Tab 1 dose PO BID [facility] Last Admin: 07/19/18 10:14 Dose: Not Given Documented by: Pneumococcal Polyvalent Vaccine (Pneumovax 23) 0.5 ml IM .ONCE ONE Stop: 07/20/18 10:01 Polyethylene Glycol (Miralax) 17 gm PO DAILY PRN PRN Reason: Constipation Simvastatin (Zocor) [address] 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 -Plan per Dr Velasquez and Dr Keane, plan for OR today -Patient has no e/o systemic infection -Antibiotic Management per Dr Winter/ Infectious disease. CKD -Creat at baseline, attributed to use of lithium as per patient, not on lithium anymore, levels undetectable Bipolar disorder -stable, resume home meds Overweight/ BMI 27.9 Hypothyroidism -stable chr conditions, outpatient follow up DVT hep x 1, hold for surgery tomorrow Diet REgular, NPO [place] Full code. Medical - PN: Qual - VTE Deep Vein Thrombosis/Pulmonary Embolism Present on Admission: No
[2018-07-19] MEDS ORDERED: ceFAZolin 1 GM VIAL IV SCH (11:00)
--- NOTE | 2018-07-19 11:33 | Operative Note ---
DATE OF OPERATION: 07/19/2018 PREOPERATIVE DIAGNOSIS: Nonhealing open medial wound 7-weeks status post open reduction and internal fixation of a bimalleolar ankle fracture. POSTOPERATIVE DIAGNOSES: 1. Nonhealing open medial wound 7-weeks status post open reduction and internal fixation of a bimalleolar ankle fracture. 2. Exposed medial hardware and nonunion of the medial malleolar fracture. PROCEDURE PERFORMED: 1. Irrigation and debridement of skin, muscle, tendon and bone from the right medial wound with copious irrigation. 2. Hardware removal deep of two medial malleolar screws and washers. SURGEON: Fernando Velasquez M.D. THERAPEUTIC RADIOLOGIST: None. ANESTHESIA: General. DRAINS: None. SPECIMENS: Screws and washers x2, wound culture and sensitivity. We did a bone biopsy to be sent to Pathology for permanent section and then a bone culture and sensitivity. BLOOD LOSS: 50 mL. POSTOPERATIVE CONDITION: Stable. COMPLICATIONS: None. INDICATIONS FOR SURGERY: This is a 67-year-old female who sustained a closed bimalleolar ankle fracture who underwent ORIF approximately 7 weeks ago. She had gradually developed an ulcer and scab over the medial side which continued to enlarge over time and started developing necrotic tissue within the wound. FINDINGS AT SURGERY: There was necrotic tendon and soft tissue with exposed screw heads and nonunion of the medial fracture. Post-debridement showed good bleeding tissue from the wound bed. PROCEDURE IN DETAIL: The patient had been seen preoperatively. Informed consent had been obtained after discussion of risks and benefits of surgery. Risks including, but not limited to, bleeding; continued infection; injury to nerves, blood vessels, other surrounding structures; anesthetic risks; and the possibility of needing further surgeries, such as skin graft, possible ankle fusion or amputation below knee. She understood these risks and wished to proceed. Correct operative site was marked and then patient was taken to the operating room. General anesthesia was induced. The right lower extremity was carefully prepped and draped in normal sterile fashion, and a time-out was performed verifying patient name, operative site, and plan. We did initial debridement of the necrotic tissue with scalpel and tenotomy scissors. We also used the screwdriver to remove the two screws. We used a curet to scrape any necrotic or nonviable tissue from the wound. We then took a bone fragment from the medial malleolus and used this for culture and sensitivity, as well as sent to Pathology for permanent section. We also did a culture swab deep within the wound. Once this was completed, we did note that we had very good bleeding tissue from throughout the base and no visible nonviable tissue remaining. There was free mobility of the remaining medial malleolar fragment. I did use a rongeur also to try and round off the edge of the fracture just of the distal end of the proximal fragment so that this would not be prominent for wound healing. We then placed a wet-to-dry dressing, as well as fluffs and a Kerlix, and then an Johnnie wrap was applied. The patient was then placed back in her fracture boot, awakened, extubated, and transferred to recovery in stable condition. BJB:angelia Job ID: [id number] Doc ID: [id number] Fernando Velasquez MD
--- NOTE | 2018-07-19 13:05 | Internal Med Progress Note ---
Medical - PN: Subj Patient information: Note initiated : 07/19/18 at 1:03 pm Service Date, if different from initiated Date: [] Patient: Yanni Topete a 67 y/o F admitted on 07/18/18 for Rt Ankle Wound. Chief Complaint: [] Interval history: Ms. Topete is a 67 year old F with history of bipolar disorder, chronic kidney disease presents to the hospital today for evaluation of her right lower extremity wound. The patient had history of fall in May, at which time she twisted her ankle and developed a complex fracture of the right ankle. She was operated by Dr. Velasquez in May and underwent an open reduction and internal fixation of the fracture. The patient was discharged subsequently. The patient apparently was managing her right lower extremity wound and blister however the patient's wound got progressively worse. There was some pussy discharge and she was seen in the wound care clinic today. In the wound care clinic on speaking with the wound care physician there was pus, and the wound l ooked infected. The patient was therefore sent to the emergency room for further evaluation. In the emergency room the patient is afebrile, hemodynamically stable, labs are stable kidney function is at baseline at around 1.3 -1.4. Patient has minimal pain on the right lower extremity with movement otherwise no other acute complaints or concerns. The wound care physician is the primary provider managing this patient, patient to be taken to the OR for cleanup and debridement by Dr. Velasquez tomorrow morning. Hospitalist has been consulted to help manage the logistics of inpatient stay. Wound care physician has been consulted by the wound care provider. 07/19 Pt seen examined, no acute issues reported labs stable awaitin 07/20 - Constitutional Vitals: Vital Signs Temp Pulse Resp BP Pulse Ox 97.9 F 86 14 112/73 98 07/19/18 11:05 07/19/18 11:05 07/19/18 11:05 07/19/18 11:05 07/19/18 11:05 Period Temp Pulse Resp BP Sys/Hoyt Pulse Ox Last 24 Hr 97.5 F-98.5 F 77-98 14-23 88-145/58-83 90-100 Intake and Output 07/18/18 07/19/18 07/19/18 21:59 05:59 13:59 Intake Total 1000 1800 1040 Output Total 600 1351 1900 Balance 400 449 -860 Weight 99.79 kg Intake & Output: Intake & Output 07/18/18 07/19/18 07/19/18 21:59 05:59 13:59 Intake Total 1000 1800 1040 Output Total 600 1351 1900 Balance 400 449 -860 Weight 99.79 kg Intake: IV 1000 1000 Sodium Chloride 0.9% 1,000 ml @ 1000 Wide Open IV [facility] Rx#: [id number] Lactated Ringers 1,000 ml @ 84 1000 mls/hr IV .[id number] [facility] Rx#: [id number] Oral 800 240 IV - Manual Only 800 Output: Void Amount 600 1350 1900 # of times incontinent of urine 1 Other: Meal Lunch Percent of Meal Consumed 75% Feeding Ability Independent Urine Appearance Clear Clear Urine Color Bright Yellow Bright Yellow Urine Odor Normal Normal # Voids 1 1 Exam: General: Alert, Awake, No acute Distress Eyes/N/T: EOMI, Head/Neck: neck supple, CV: RRR, No murmurs, Pulm: Clear b/l, no wheezing/rhonchi/rales Abd: soft, nontender, +BS x4 Ext: no clubbing/cyanosis/edema. right ankle ------- Neuro: Alert, no focal deficits, moves all extremities, Skin: warm/dry Medical - PN: Obj Da - Labs CBC & Chem 7: 07/19/18 04:25 07/19/18 04:25 Labs: Abnormal Lab Results 07/19/18 07/19/18 07/18/18 04:25 04:25 09:45 RBC 3.91 L Hgb 11.5 L RDW 14.6 H Cass % (Auto) 12.1 H Eos % (Auto) 8.1 H Lymph # (Auto) ESR Chloride 109 H BUN 24 H 29 H Creatinine 1.2 H 1.4 H Alkaline Phosphatase 179 H 212 H C-Reactive Protein 1.6 H Albumin 3.1 L Globulin 4.2 H Albumin/Globulin Ratio 0.9 L 07/18/18 09:45 RBC Hgb RDW Cass % (Auto) Eos % (Auto) Lymph # (Auto) 1.2 L ESR 47 H Chloride BUN Creatinine Alkaline Phosphatase C-Reactive Protein Albumin Globulin Albumin/Globulin Ratio Meds: Medications Hydrocodone Bitart/Acetaminophen ([place] 7.5/325mg) 1 - 2 tab PO Q4HP PRN PRN Reason: Pain Cefazolin Sodium (Ancef) 2 gm IV Q8H [facility] Last Admin: 07/19/18 11:42 Dose: 2 gm Documented by: Clonazepam (Klonopin) 1 mg PO TID [facility] Last Admin: 07/19/18 10:14 Dose: Not Given Documented by: Docusate Sodium (Colace) 100 mg PO BID PRN PRN Reason: Constipation Famotidine (Pepcid) 20 mg PO BID [facility] Last Admin: 07/19/18 10:14 Dose: Not Given Documented by: Lactated Ringer's (Lactated Ringers) 1,000 mls @ 84 mls/hr IV .[id number] [facility] Last Admin: 07/19/18 05:50 Dose: 84 mls/hr Documented by: Lactobacillus Rhamnosus (Culturelle) 1 cap PO DAILY [facility] Last Admin: 07/19/18 10:14 Dose: Not Given Documented by: Levothyroxine Sodium (Synthroid) 75 mcg PO QAMAC [facility] Last Admin: 07/19/18 06:55 Dose: Not Given Documented by: Naloxone HCl (Narcan) 0.1 mg IV Q2MIN PRN PRN Reason: Opiate Reversal Oxcarbazepine [ Trileptal] 600 Mg Tab 300 mg PO BID [facility] Last Admin: 07/19/18 10:14 Dose: Not Given Documented by: Olanzapine (Zyprexa) 20 mg PO [facility] Last Admin: 07/18/18 21:01 Dose: 20 mg Documented by: Ondansetron HCl (Zofran) 4 mg IV Q6HP PRN PRN Reason: Nausea And Vomiting Quetiapine Fumarate (Er 300 Mg Tab) 1 dose PO [facility] Last Admin: 07/18/18 22:32 Dose: Not Given Documented by: Quetiapine Fumarate [Seroquel Xr] 50 Mg Tab 1 dose PO BID [facility] Last Admin: 07/19/18 10:14 Dose: Not Given Documented by: Pneumococcal Polyvalent Vaccine (Pneumovax 23) 0.5 ml IM .ONCE ONE Stop: 07/20/18 10:01 Polyethylene Glycol (Miralax) 17 gm PO DAILY PRN PRN Reason: Constipation Simvastatin (Zocor) 10 mg PO [facility] Last Admin: 07/18/18 21:01 Dose: 10 mg Documented by: Sodium Chloride (Saline Flush) 10 ml IV Q8 [facility] Last Admin: 07/19/18 06:55 Dose: Not Given Documented by: Medical - PN: A/P - Time Spent With Patient Total time spent is greater than 50% in coordination of care (as documented) at patient's floor/unit and/or counseling patient: - Narrative A/P Narrative: A/P] *Post operative infection, right ankle: *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 -Plan per Dr Velasquez and Dr Keane, plan for OR today -Patient has no e/o systemic infection -Antibiotic Management per Dr Winter/ Infectious disease. *CKD III: -Creat at baseline, attributed to use of lithium as per patient, not on lithium anymore, levels undetectable *Bipolar disorder -stable, resume home meds *Overweight/ BMI 27.9 *Hypothyroidism: stable chr conditions, outpatient follow up *ppx: hep x 1, hold for surgery tomorrow Full code. Medical - PN: Qual - VTE Deep Vein Thrombosis/Pulmonary Embolism Present on Admission: No
[2018-07-19] MEDS ORDERED: VANCOMYCIN PER PHARMACY IV SCH (13:06)
[2018-07-19] MEDS: VANCOMYCIN 1,500 MG in 0.9 % SODIUM CHLORIDE 500 ML IV SCH (14:44)
[2018-07-19] MEDS: CEFEPIME 2 GM VIAL IV SCH ×2 (14:44→21:46)
--- NOTE | 2018-07-19 16:08 | General Surgery Progress Note ---
Subjective Narrative: Note initiated : 07/19/18 at 4:06 pm Service Date, if different from initiated Date: [] Patient: Yanni Topete 67 y/o F admitted on 07/18/18 for Rt Ankle Wound. Chief Complaint: [] I saw patient briefly this morning and discussed her wound care plan of care after surgery with Dr. Velasquez. Patient has now undergone OR debridement and removal of hardware at site of open wound. Objective Temp Pulse Resp BP Pulse Ox 98.1 F 89 18 114/68 95 07/19/18 15:34 07/19/18 14:08 07/19/18 15:34 07/19/18 15:34 07/19/18 15:34 - Additional Data Intake & Output - Last 24 hours: Intake & Output 07/17/18 07/18/18 07/19/18 07/20/18 05:59 05:59 05:59 05:59 Intake Total 2800 2121 Output Total 1951 2500 Balance 849 -379 Weight 220 lb - Labs 07/19/18 04:25 07/19/18 04:25 Diabetes panel 07/19/18 Range/Units 04:25 Sodium 142 (133-145) mmol/L Potassium 4.8 (3.3-5.1) mmol/L Chloride 109 H (96-108) mmol/L Carbon Dioxide 23 (22-30) mmol/L BUN 24 H (8-23) mg/dl Creatinine 1.2 H (0.6-1.1) mg/dl Glucose 86 (70-105) mg/dL Calcium 9.2 (8.6-10.4) mg/dl AST 11 (0-37) U/l ALT 7 (0-40) U/l Alkaline Phosphatase 179 H (39-117) U/L Total Protein 6.7 (5.9-8.4) gm/dL Albumin 3.1 L (3.2-5.2) gm/dL Triglycerides 145 (<150) mg/dl Calcium panel 07/19/18 Range/Units 04:25 Calcium 9.2 (8.6-10.4) mg/dl Phosphorus 4.2 (2.7-4.5) mg/dL Albumin 3.1 L (3.2-5.2) gm/dL Pituitary panel 07/19/18 Range/Units 04:25 Sodium 142 (133-145) mmol/L Potassium 4.8 (3.3-5.1) mmol/L Chloride 109 H (96-108) mmol/L Carbon Dioxide 23 (22-30) mmol/L BUN 24 H (8-23) mg/dl Creatinine 1.2 H (0.6-1.1) mg/dl Glucose 86 (70-105) mg/dL Calcium 9.2 (8.6-10.4) mg/dl Adrenal panel 07/19/18 Range/Units 04:25 Sodium 142 (133-145) mmol/L Potassium 4.8 (3.3-5.1) mmol/L Chloride 109 H (96-108) mmol/L Carbon Dioxide 23 (22-30) mmol/L BUN 24 H (8-23) mg/dl Creatinine 1.2 H (0.6-1.1) mg/dl Glucose 86 (70-105) mg/dL Calcium 9.2 (8.6-10.4) mg/dl Total Bilirubin 0.2 (0.0-1.0) mg/dL AST 11 (0-37) U/l ALT 7 (0-40) U/l Alkaline Phosphatase 179 H (39-117) U/L Total Protein 6.7 (5.9-8.4) gm/dL Albumin 3.1 L (3.2-5.2) gm/dL Assessment and Plan (1) Complication due to device, implant, or graft Status: Acute Current Visit: Yes - Narrative A/P Narrative: Assessment: S/P OR debridement, lavage, and removal of hardware at site of wound. Plan: IV antibiotics per ID. Will await wound culture results. Will follow patient from wound care point of view. Plan of care to be determined after primary change of dressings, - Time Spent With Patient Total time spent is greater than 50% in coordination of care (as documented) at patient's floor/unit and/or counseling patient: 15 - 24 minutes
[2018-07-19] MEDS: DOCUSATE SODIUM 100 MG CAPSULE PO PRN (21:41)
[2018-07-19] MEDS: OLANZapine 5 MG TABLET PO SCH (21:41)
[2018-07-19] MEDS: SIMVASTATIN 10 MG TABLET PO SCH (21:42)
[2018-07-19] MEDS: HYDROCODONE/APAP 7.5/325MG TABLET PO PRN ×2 (21:45→23:53)
[2018-07-20] MEDS: LACTATED RINGERS 1,000 ML IV SCH ×2 (02:45→16:19)
[2018-07-20] MEDS: CEFEPIME 2 GM VIAL IV SCH ×3 (05:49→21:51)
[2018-07-20] MEDS: 0.9 % SODIUM CHLORIDE 10 ML SYRINGE IV SCH ×3 (05:49→21:52)
--- NOTE | 2018-07-20 06:53 | Internal Med Progress Note ---
Medical - PN: Subj Patient information: Note initiated : 07/20/18 at 6:49 am Service Date, if different from initiated Date: [] Patient: Yanni Topete a 67 y/o F admitted on 07/18/18 for Rt Ankle Wound. Chief Complaint: [] Interval history: Ms. Topete is a 67 year old F with history of bipolar disorder, chronic kidney disease presents to the hospital today for evaluation of her right lower extremity wound. The patient had history of fall in May, at which time she twisted her ankle and developed a complex fracture of the right ankle. She was operated by Dr. Velasquez in May and underwent an open reduction and internal fixation of the fracture. The patient was discharged subsequently. The patient apparently was managing her right lower extremity wound and blister however the patient's wound got progressively worse. There was some pussy discharge and she was seen in the wound care clinic today. In the wound care clinic on speaking with the wound care physician there was pus, and the wound l ooked infected. The patient was therefore sent to the emergency room for further evaluation. In the emergency room the patient is afebrile, hemodynamically stable, labs are stable kidney function is at baseline at around 1.3 -1.4. Patient has minimal pain on the right lower extremity with movement otherwise no other acute complaints or concerns. The wound care physician is the primary provider managing this patient, patient to be taken to the OR for cleanup and debridement by Dr. Velasquez tomorrow morning. Hospitalist has been consulted to help manage the logistics of inpatient stay. Wound care physician has been consulted by the wound care provider. 07/19 Pt seen examined, no acute issues reported labs stable awaitin 07/20 Somewhat poor sleep but otherwise no complaints. Sitting in bed comfortably eating breakfast. No new pains or complaints. Had I&D and removal of hardware yesterday. Review of Systems: denies headache/fever/chills/nausea/vomiting/chest or abdominal pain/cough /dyspnea/diarrhea. Otherwise see above. - Constitutional Vitals: Vital Signs Temp Pulse Resp BP Pulse Ox 97.9 F 93 H 12 132/94 95 07/20/18 05:00 07/20/18 05:00 07/20/18 05:00 07/20/18 05:00 07/20/18 05:00 Period Temp Pulse Resp BP Sys/Hoyt Pulse Ox Last 24 Hr 97.8 F-98.6 F 80-98 12-23 112-145/49-104 80-100 Intake and Output 07/19/18 07/20/18 07/20/18 21:59 05:59 13:59 Intake Total 1081 1176 Output Total 1900 2150 Balance -819 -974 Weight 102.965 kg Intake & Output: Intake & Output 07/19/18 07/20/18 07/20/18 21:59 05:59 13:59 Intake Total 1081 1176 Output Total 1900 2150 Balance -819 -974 Weight 102.965 kg Intake: IV 781 976 Lactated Ringers 1,000 ml @ 84 781 976 mls/hr IV .[id number] [facility] Rx#: [id number] Oral 300 200 Output: Void Amount 1899 2150 Other: Urine Appearance Clear Clear Urine Color Pale Pale # Voids 1 Exam: General: Alert, Awake, No acute Distress Eyes/N/T: EOMI, Head/Neck: neck supple, CV: RRR, 1/6 SM Pulm: Clear b/l, no wheezing/rhonchi/rales Abd: soft, nontender, +BS x4 Ext: no clubbing/cyanosis/edema. right ankle with dressings wraps and boot in place Neuro: Alert, no focal deficits, moves all extremities, Skin: warm/dry Medical - PN: Obj Da - Labs CBC & Chem 7: 07/20/18 04:15 07/20/18 04:15 Labs: Abnormal Lab Results 07/19/18 07/19/18 07/18/18 04:25 04:25 09:45 RBC 3.91 L Hgb 11.5 L RDW 14.6 H [place] % (Auto) 12.1 H Eos % (Auto) 8.1 H Lymph # (Auto) ESR Chloride 109 H BUN 24 H 29 H Creatinine 1.2 H 1.4 H Alkaline Phosphatase 179 H 212 H C-Reactive Protein 1.6 H Albumin 3.1 L Globulin 4.2 H Albumin/Globulin Ratio 0.9 L 07/18/18 09:45 RBC Hgb RDW [place] % (Auto) Eos % (Auto) Lymph # (Auto) 1.2 L ESR 47 H Chloride BUN Creatinine Alkaline Phosphatase C-Reactive Protein Albumin Globulin Albumin/Globulin Ratio Meds: Medications Hydrocodone Bitart/Acetaminophen ([place] 7.5/325mg) 1 - 2 tab PO Q4HP PRN PRN Reason: Pain Last Admin: 07/19/18 23:53 Dose: 1 tab Documented by: Cefepime HCl (Maxipime) 2 gm IV Q8H [facility]; Protocol Last Admin: 07/20/18 05:49 Dose: 2 gm Documented by: Clonazepam (Klonopin) 1 mg PO TID [facility] Last Admin: 07/19/18 21:42 Dose: 1 mg Documented by: Docusate Sodium (Colace) 100 mg PO BID PRN PRN Reason: Constipation Last Admin: 07/19/18 21:41 Dose: 100 mg Documented by: Famotidine (Pepcid) 20 mg PO BID [facility] Last Admin: 07/19/18 21:42 Dose: 20 mg Documented by: Lactated Ringer's (Lactated Ringers) 1,000 mls @ 84 mls/hr IV .[id number] [facility] Last Admin: 07/20/18 02:45 Dose: 84 mls/hr Documented by: Vancomycin HCl 1,500 mg/ (Sodium Chloride) 500 mls @ 333.3 mls/hr IV Q24H [facility] Last Admin: 07/19/18 14:44 Dose: 333.3 mls/hr Documented by: Lactobacillus Rhamnosus (Culturelle) 1 cap PO DAILY [facility] Last Admin: 07/19/18 10:14 Dose: Not Given Documented by: Levothyroxine Sodium (Synthroid) 75 mcg PO QAMAC [facility] Last Admin: 07/19/18 06:55 Dose: Not Given Documented by: Naloxone HCl (Narcan) 0.1 mg IV Q2MIN PRN PRN Reason: Opiate Reversal Oxcarbazepine [ Trileptal] 600 Mg Tab 300 mg PO BID [facility] Last Admin: 07/19/18 21:42 Dose: 300 mg Documented by: Olanzapine (Zyprexa) 20 mg PO [facility] Last Admin: 07/19/18 21:41 Dose: 20 mg Documented by: Ondansetron HCl (Zofran) 4 mg IV Q6HP PRN PRN Reason: Nausea And Vomiting Quetiapine Fumarate (Er 300 Mg Tab) 1 dose PO [facility] Last Admin: 07/19/18 21:44 Dose: Not Given Documented by: Quetiapine Fumarate [Seroquel Xr] 50 Mg Tab 1 dose PO BID [facility] Last Admin: 07/19/18 21:44 Dose: Not Given Documented by: Pneumococcal Polyvalent Vaccine (Pneumovax 23) 0.5 ml IM .ONCE ONE Stop: 07/20/18 10:01 Polyethylene Glycol (Miralax) 17 gm PO DAILY PRN PRN Reason: Constipation Simvastatin (Zocor) 10 mg PO HS [facility] Last Admin: 07/19/18 21:42 Dose: 10 mg Documented by: Sodium Chloride (Saline Flush) 10 ml IV Q8 [facility] Last Admin: 07/20/18 05:49 Dose: 10 ml Documented by: Vancomycin HCl (Vancomycin Per Pharmacy) 1 order IV UD [facility]; Protocol Medical - PN: A/P - Time Spent With Patient Total time spent is greater than 50% in coordination of care (as documented) at patient's floor/unit and/or counseling patient: - Narrative A/P Narrative: A/P] *Post operative infection, right ankle: s/p I&D & hardware removal (07/19) *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 -Plan per Dr Velasquez and Dr Keane, -Patient has no e/o systemic infection -Antibiotic Management per Dr Winter/ Infectious disease. *CKD III: -Creat at baseline, attributed to use of lithium as per patient, not on lithium anymore, levels undetectable *Bipolar disorder -stable, resume home meds *Overweight: *Hypothyroidism: stable chr conditions, outpatient follow up *ppx: heparin Full code. Medical - PN: Qual - VTE Deep Vein Thrombosis/Pulmonary Embolism Present on Admission: No
[2018-07-20 06:54] LABS: Basophils # (Auto) 0 K/mcL (0.0-0.3); Basophils % (Auto) 0.5 % (0.0-2.0); Eosinophils # (Auto) 0 K/mcL (0.0-0.7); Eosinophils % (Auto) 0.7 % (0.0-7.0); Granulocytes % (Auto) 67.2 % (38.0-78.0); Lymphocytes # (Auto) 1.4 K/mcL (1.5-4.8); Mean Cell Volume 92.2 fL (80.0-100.0); Mean Corpuscular HGB Conc 32.3 g/dL (31.0-36.0); Monocytes # (Auto) 0.5 K/mcL (0.1-0.9); Monocytes % (Auto) 8.6 % (1.0-12.0); Platelet Count 179 K/mcL (140-440); RBC 3.64 M/mcL (4.00-5.20); Red Cell Distribution Width 14.4 % (11.5-14.5)
[2018-07-20 07:15] LABS: ALT/SGPT 6 U/l (0-40); Albumin 3.3 gm/dL (3.2-5.2); Albumin/Globulin Ratio 1.1 (1.0-2.3); Alkaline Phosphatase 158 U/L (39-117); Bilirubin,Direct < 0.2 mg/dL (0.0-0.3); Blood Urea Nitrogen 24 mg/dl (8-23); Gamma Glutamyl Transpeptidase 20 U/L (5-36); Uric Acid 5.5 mg/dL (2.5-8.0)
[2018-07-20] MEDS: LEVOTHYROXINE 75 MCG TABLET PO SCH (07:43)
[2018-07-20] MEDS: HYDROCODONE/APAP 7.5/325MG TABLET PO PRN (07:48)
--- NOTE | 2018-07-20 09:15 | Discharge Summary ---
Medical - DS: Prov Patient information: Note initiated : 07/20/18 at 9:14 am Service Date, if different from initiated Date: [] Patient: Yanni Topete 67 y/o F admitted on 07/18/18 for Rt Ankle Wound. Chief Complaint: [] Date of admission: 07/18/18 14:52 Primary care physician: Alyssa Garces Consults: 07/18/18 Consult to Physician [CONS] Stat Comment: Consulting Provider: Ronald Merritt Reason For Exam: Physician to Consult 07/18/18 11:59 Consult to Physician [CONS] Stat Comment: Consulting Provider: Chris Mcdonald Reason For Exam: Physician to Consult 07/18/18 14:56 Consult to Infectious Disease [CONS] Stat Comment: Consulting Provider: Velasquez Winter Reason For Exam: Physician to Consult 07/18/18 14:58 Consult to Physician [CONS] Routine Comment: Consulting Provider: Fernando Velasquez Reason For Exam: Physician to Consult 07/18/18 17:39 Consult to Physician [CONS] Routine Comment: Consulting Provider: Anesthesiology Reason For Exam: Anesthesia pre Op evaluation Medical - DS: Meds - Discharge Medications Active and Home Medications: Home Medications Acetaminophen [Tylenol] 650 mg PO Q4-6HP PRN 06/03/18 [History Confirmed 06/03/18 Last Taken 06/02/18] Calcium Carbonate [Tums] 200 mg PO PRN PRN 06/03/18 [History Confirmed 06/03/18 Last Taken 06/02/18] Clotrimazole Crm 1% [Mycelex Crm 1%] 1 dose TOPICAL ONCE 06/03/18 [History Conf irmed 07/18/18 Last Taken 06/02/18] Docusate Sodium [Colace] 100 mg PO BID PRN 06/03/18 [History Confirmed 07/18/18 Last Taken 06/02/18] Hydrocodone/APAP 7.5/325Mg [[place] 7.5-325Mg] 1 - 2 tab PO Q4HP PRN #60 tab 06/03/18 [Rx Last Taken Unknown] Lactobacillus Acidophilus [Acidophilus Lactobacilli] 1 each PO DAILY 06/03/18 [History Confirmed 07/18/18 Last Taken 06/02/18] Levothyroxine [Synthroid] 75 mcg PO DAILY 06/03/18 [History Confirmed 07/18/18 Last Taken 06/02/18] Lisinopril [Zestril] 2.5 mg PO HS 06/03/18 [History Confirmed 06/03/18 Last Taken 06/02/18] OLANZapine [Olanzapine Odt] 20 mg PO HS 06/03/18 [History Confirmed 07/18/18 Last Taken 06/03/18 08:50] OXcarbazepine [Trileptal] 300 mg PO BID 06/03/18 [History Confirmed 06/03/18 Last Taken 06/03/18 08:50] Polyethylene Glycol 3350 [Miralax] 17 gm PO DAILY PRN 06/03/18 [History Confirmed 07/18/18 Last Taken 06/02/18] Pravastatin [Pravachol] 20 mg PO HS 06/03/18 [History Confirmed 07/18/18 Last Taken 06/02/18] QUEtiapine FUMARATE [Quetiapine Fumarate ER] 300 mg PO HS 06/03/18 [History Confirmed 07/18/18 Last Taken 06/03/18 08:50] Ranitidine HCl [Acid Esl Teacher] 150 mg PO BID 06/03/18 [History Confirmed 06/03/18 Last Taken 06/03/18 08:50] clonazePAM [KlonoPIN] 1 mg PO TID 06/03/18 [History Confirmed 07/18/18 Last Taken 06/02/18] oxyCODONE HCL [Oxycodone HCl] 5 mg PO PRN PRN 06/03/18 [History Confirmed 07/18/18 Last Taken 06/03/18 08:50] Cephalexin [Keflex] 500 mg PO QID 07/18/18 [History Confirmed 07/18/18 Last Taken Unknown] Emollient Base [Emollient] 500 gm TP PRN PRN 07/18/18 [History Confirmed 07/18/18 Last Taken Unknown] QUEtiapine FUMARATE [Seroquel Xr] 50 mg PO BID 07/18/18 [History Confirmed 07/18/18 Last Taken Unknown] Sodium Fluoride [Prevident 5000] 100 ml DT BID 07/18/18 [History Confirmed 07/18/18 Last Taken Unknown] Medical - DS: Hosp Hospital course: Ms. Topete is a 67 year old F with history of bipolar disorder, chronic kidney disease presents to the hospital today for evaluation of her right lower extremity wound. The patient had history of fall in May, at which time she twisted her ankle and developed a complex fracture of the right ankle. She was operated by Dr. Velasquez in May and underwent an open reduction and internal fixation of the fracture. The patient was discharged subsequently. The patient apparently was managing her right lower extremity wound and blister however the patient's wound got progressively worse. There was some pussy discharge and she was seen in the wound care clinic today. In the wound care clinic on speaking with the wound care physician there was pus, and the wound looked infected. The patient was therefore sent to the emergency room for further evaluation. In the emergency room the patient is afebrile, hemodynamically stable, labs are stable kidney function is at baseline at around 1.3 -1.4. Patient has minimal pain on the right lower extremity with movement otherwise no other acute complaints or concerns. The wound care physician is the primary provider managing this patient, patient to be taken to the OR for cleanup and debridement by Dr. Velasquez tomorrow morning. Hospitalist has been consulted to help manage the logistics of inpatient stay. Wound care physician has been consulted by the wound care provider. 07/19 Pt seen examined, no acute issues reported labs stable awaitin 07/20 Somewhat poor sleep but otherwise no complaints. Sitting in bed comfortably eating breakfast. No new pains or complaints. Had I&D and removal of hardware yesterday. 07/21 Okay. No overnight events. Had BMs last night after laxatives given. Boot dressings in place on the right ankle. No new complaints 07/22 No issues overnight. Doing well. 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 Secondary discharge diagnosis: Chronic kidney disease bipolar hypothyroidism - Time Spent with Patient Total time spent providing and/or coordinating discharge services: Greater than 30 minutes Medical - DS: Exam - Constitutional Vitals: Vital Signs Temp Pulse Resp BP BP Pulse Ox 07/20/18 07:45 97.4 F 75 16 126/80 93 07/20/18 05:00 97.9 F 93 H 12 132/94 95 07/19/18 23:45 98.1 F 81 20 93 07/19/18 21:57 93 07/19/18 19:11 93 07/19/18 19:10 98.6 F 87 20 112/74 80 L 07/19/18 15:34 98.1 F 18 114/68 95 07/19/18 14:08 97.8 F 89 18 127/64 93 07/19/18 12:30 98.0 F 80 16 124/49 91 07/19/18 12:00 97.9 F 82 16 132/104 94 07/19/18 11:45 98.2 F 80 16 118/72 90 07/19/18 11:30 98.0 F 81 18 117/71 93 07/19/18 11:15 98.0 F 88 18 123/65 92 07/19/18 11:05 97.9 F 86 14 112/73 98 07/19/18 10:50 98.5 F 85 14 121/83 100 07/19/18 10:45 90 23 H 116/75 120/82 99 07/19/18 10:40 89 15 116/75 139/73 100 07/19/18 10:35 98.5 F 98 H 16 145/73 96 Intake and Output 07/19/18 07/20/18 07/20/18 21:59 05:59 13:59 Intake Total 1081 1176 240 Output Total 1900 2150 Balance -819 -974 240 Intake: IV 781 976 Lactated Ringers 1,000 ml @ 84 781 976 mls/hr IV .[id number] [facility] Rx#: [id number] Oral 300 200 240 Output: Void Amount 1900 2150 Other: Meal Breakfast Percent of Meal Consumed 100% Feeding Ability Independent Urine Appearance Clear Clear Urine Color Pale Pale # Voids 1 Weight 102.965 kg Medical - DS: Data Labs on day of discharge: Labs from last 24 hours 07/20/18 07/20/18 04:15 04:15 WBC 6.2 RBC 3.64 L Hgb 10.8 L Hct 33.6 L MCV 92.2 MCH 29.7 MCHC 32.3 RDW 14.4 Plt Count 179 MPV 7.8 Gran % 67.2 Lymph % (Auto) 23.0 [place] % (Auto) 8.6 Eos % (Auto) 0.7 Baso % (Auto) 0.5 Gran # 4.2 Lymph # (Auto) 1.4 L [place] # (Auto) 0.5 Eos # (Auto) 0 Baso # (Auto) 0 Sodium 144 Potassium 4.7 Chloride 110 H Carbon Dioxide 24 Anion Gap 10.0 BUN 24 H Creatinine 1.2 H GFR Calculation 47 Glucose 97 Uric Acid 5.5 Calcium 8.9 Phosphorus 3.9 Magnesium 1.8 Total Bilirubin 0.2 Direct Bilirubin < 0.2 GGT 20 AST 9 ALT 6 Alkaline Phosphatase 158 H Lactate Dehydrogenase 141 Total Protein 6.3 Albumin 3.3 Globulin 3.0 Albumin/Globulin Ratio 1.1 Triglycerides 75 Preliminary micro results at discharge 07/18/18 09:51 Blood Culture - Preliminary Blood 07/18/18 10:00 Blood Culture - Preliminary Blood Medical - DS: A/P - Patient/Caregiver Discharge Instructions Activity: as per physical therapy Diet: Regular Diet Other Amb Orders: OT Discharge Order Location: None Selected Physical Therapy at Discharge - [facility] Location: None Selected - Follow up Plan Follow up with: Alyssa Garces ARNP [Primary Care Provider] - Fernando Velasquez MD [Physician] - Chris Mcdonald MD [Physician] - Velasquez Winter MD [Physician] - Disposition: Xfer SNF Prognosis: Fair Rehab Potential: Fair I certify that the patient requires SNF services: Yes Overall status at discharge: patient is progressing back to baseline Medical - DS: Qual - VTE Deep Vein Thrombosis/Pulmonary Embolism Present on Admission: No
[2018-07-20] MEDS: VANCOMYCIN 1,500 MG in 0.9 % SODIUM CHLORIDE 500 ML IV SCH (09:22)
[2018-07-20] MEDS: HEPARIN 5,000 UNIT/ML VIAL SQ SCH ×2 (09:22→21:51)
[2018-07-20] MEDS: Oxcarbazepine [Trileptal] 600 mg Tab PO SCH ×2 (09:23→21:29)
[2018-07-20] MEDS: FAMOTIDINE 20 MG TABLET PO SCH ×2 (09:24→21:30)
[2018-07-20] MEDS: LACTOBACILLUS 1 CAPSULE PO SCH (09:24)
[2018-07-20] MEDS: clonazePAM 1 MG TABLET PO SCH ×3 (09:24→21:28)
[2018-07-20] MEDS: DOCUSATE SODIUM 100 MG CAPSULE PO PRN (09:24)
[2018-07-20] MEDS ORDERED: PNEUMOCOCCAL 23-VAL P-SAC VAC 0.5 ML SYRINGE IM ONE (10:00)
--- NOTE | 2018-07-20 12:14 | Orthopedic Progress Note ---
Subjective Patient information: Note initiated : 07/20/18 at 12:12 pm Service Date, if different from initiated Date: [] Patient: Yanni Topete 67 y/o F admitted on 07/18/18 for Rt Ankle Wound. Chief Complaint: [] Principal diagnosis: open ankle wound s/p I&D Interval history: c/o pain Objective Vital signs: Vital Signs Temp Pulse Resp BP Pulse Ox 07/20/18 07:45 97.4 F 75 16 126/80 93 07/20/18 05:00 97.9 F 93 H 12 132/94 95 07/19/18 23:45 98.1 F 81 20 93 07/19/18 21:57 93 07/19/18 19:11 93 07/19/18 19:10 98.6 F 87 20 112/74 80 L 07/19/18 15:34 98.1 F 18 114/68 95 07/19/18 14:08 97.8 F 89 18 127/64 93 07/19/18 12:30 98.0 F 80 16 124/49 91 Intake and Output 07/19/18 07/20/18 07/20/18 21:59 05:59 13:59 Intake Total 1581 1176 1040 Output Total 1900 2150 Balance -319 -974 1040 Intake: IV 1281 976 Lactated Ringers 1,000 ml @ 84 781 976 mls/hr IV .[id number] [facility] Rx#: [id number] Vancomycin 1,500 mg In Sodium 500 Chloride 0.9% 500 ml @ 333.3 mls/hr IV Q24H [facility] Rx#: [id number] Oral 632 078 2825 Output: Void Amount 1900 2150 Other: Meal Breakfast Percent of Meal Consumed 100% Feeding Ability Independent Urine Appearance Clear Clear Clear Urine Color Pale Pale Dark Yellow Urine Odor Normal Stool Size Small Stool Color Brown Stool Consistency Formed # Voids 1 1 # Bowel Movements 1 Weight 227 lb 227 lb Patient Weight 07/21/18 05:59 Weight 227 lb Intake & Output: Intake & Output 07/19/18 07/20/18 07/20/18 21:59 05:59 13:59 Intake Total 1581 1176 1040 Output Total 1900 2150 Balance -319 -974 1040 Weight 227 lb 227 lb Intake: IV 1281 976 Lactated Ringers 1,000 ml @ 84 781 976 mls/hr IV .[id number] [facility] Rx#: [id number] Vancomycin 1,500 mg In Sodium 500 Chloride 0.9% 500 ml @ 333.3 mls/hr IV Q24H [facility] Rx#: [id number] Oral 791 902 0738 Output: Void Amount 1900 2150 Other: Meal Breakfast Percent of Meal Consumed 100% Feeding Ability Independent Urine Appearance Clear Clear Clear Urine Color Pale Pale Dark Yellow Urine Odor Normal Stool Size Small Stool Color Brown Stool Consistency Formed # Voids 1 1 # Bowel Movements 1 Dressing: Yes clean, Yes dry, Yes intact Neurological exam IM: Yes oriented X3 - Labs CBC & BMP: 07/20/18 04:15 07/20/18 04:15 Labs: 07/20/18 0407/18/18 04:15 04:25 09:45 Hgb 10.8 L 11.5 L 13.3 Hct 33.6 L 36.3 41.4 Assessment and Plan - Narrative A/P Narrative: POD#1 s/p I&D of R medial ankle wound-stable -start dressing changes today, VAC when wound care feels appropriate -abx per ID -will d/c to SNF probably Sunday
--- NOTE | 2018-07-20 18:17 | General Surgery Progress Note ---
Subjective Patient reports: no new complaints, feels better, other (Comfortable. Saw patient with nursing staff. Minimal WB to go to BR. Using I S > 2500. Dressings changed today. ) Narrative: Note initiated : 07/20/18 at 6:14 pm Service Date, if different from initiated Date: [] . Objective Temp Pulse Resp BP Pulse Ox 98.1 F 68 16 100/68 95 07/20/18 16:00 07/20/18 16:00 07/20/18 16:00 07/20/18 16:00 07/20/18 16:00 - Additional Data Intake & Output - Last 24 hours: Intake & Output 07/18/18 07/19/18 07/20/18 07/21/18 05:59 05:59 05:59 05:59 Intake Total 2800 3797 3340 Output Total 1951 5950 650 Balance 849 -2153 2690 Weight 220 lb 227 lb 227 lb 07/20/18 18:15 AVSS. Doing well. ALEX WNL. L/E. Dressings changed earlier today Wet to Dry dressings BID. Await c/s reports. On IV Cefepime and Vanco - Labs 07/20/18 04:15 07/20/18 04:15 Diabetes panel 07/20/18 Range/Units 04:15 Sodium 144 (133-145) mmol/L Potassium 4.7 (3.3-5.1) mmol/L Chloride 110 H (96-108) mmol/L Carbon Dioxide 24 (22-30) mmol/L BUN 24 H (8-23) mg/dl Creatinine 1.2 H (0.6-1.1) mg/dl Glucose 97 (70-105) mg/dL Calcium 8.9 (8.6-10.4) mg/dl AST 9 (0-37) U/l ALT 6 (0-40) U/l Alkaline Phosphatase 158 H (39-117) U/L Total Protein 6.3 (5.9-8.4) gm/dL Albumin 3.3 (3.2-5.2) gm/dL Triglycerides 75 (<150) mg/dl Calcium panel 07/20/18 Range/Units 04:15 Calcium 8.9 (8.6-10.4) mg/dl Phosphorus 3.9 (2.7-4.5) mg/dL Albumin 3.3 (3.2-5.2) gm/dL Pituitary panel 07/20/18 Range/Units 04:15 Sodium 144 (133-145) mmol/L Potassium 4.7 (3.3-5.1) mmol/L Chloride 110 H (96-108) mmol/L Carbon Dioxide 24 (22-30) mmol/L BUN 24 H (8-23) mg/dl Creatinine 1.2 H (0.6-1.1) mg/dl Glucose 97 (70-105) mg/dL Calcium 8.9 (8.6-10.4) mg/dl Adrenal panel 07/20/18 Range/Units 04:15 Sodium 144 (133-145) mmol/L Potassium 4.7 (3.3-5.1) mmol/L Chloride 110 H (96-108) mmol/L Carbon Dioxide 24 (22-30) mmol/L BUN 24 H (8-23) mg/dl Creatinine 1.2 H (0.6-1.1) mg/dl Glucose 97 (70-105) mg/dL Calcium 8.9 (8.6-10.4) mg/dl Total Bilirubin 0.2 (0.0-1.0) mg/dL AST 9 (0-37) U/l ALT 6 (0-40) U/l Alkaline Phosphatase 158 H (39-117) U/L Total Protein 6.3 (5.9-8.4) gm/dL Albumin 3.3 (3.2-5.2) gm/dL Assessment and Plan (1) Complication due to device, implant, or graft Status: Acute Current Visit: Yes - Time Spent With Patient Total time spent is greater than 50% in coordination of care (as documented) at patient's floor/unit and/or counseling patient: Assessment: Satisfactory post operative progress. Plan: CPT. Await c/s reports. Check wound for VAC after w/e. Likely Out patient wound care and PT later less than 15 minutes
[2018-07-20] MEDS: SIMVASTATIN 10 MG TABLET PO SCH (21:30)
[2018-07-20] MEDS: QUEtiapine 25 MG TABLET PO SCH (21:30)
[2018-07-20] MEDS: QUEtiapine 100 MG TABLET PO SCH (21:30)
[2018-07-20] MEDS: OLANZapine 5 MG TABLET PO SCH (21:30)
[2018-07-21] MEDS: LACTATED RINGERS 1,000 ML IV SCH ×2 (02:57→03:39)
[2018-07-21] MEDS: 0.9 % SODIUM CHLORIDE 10 ML SYRINGE IV SCH ×4 (05:34→21:49)
[2018-07-21] MEDS: CEFEPIME 2 GM VIAL IV SCH ×3 (05:34→21:58)
--- NOTE | 2018-07-21 06:49 | Internal Med Progress Note ---
Medical - PN: Subj Patient information: Note initiated : 07/21/18 at 6:48 am Service Date, if different from initiated Date: [] Patient: Yanni Topete a 67 y/o F admitted on 07/18/18 for Rt Ankle Wound. Chief Complaint: [] Interval history: Ms. Topete is a 67 year old F with history of bipolar disorder, chronic kidney disease presents to the hospital today for evaluation of her right lower extremity wound. The patient had history of fall in May, at which time she twisted her ankle and developed a complex fracture of the right ankle. She was operated by Dr. Velasquez in May and underwent an open reduction and internal fixation of the fracture. The patient was discharged subsequently. The patient apparently was managing her right lower extremity wound and blister however the patient's wound got progressively worse. There was some pussy discharge and she was seen in the wound care clinic today. In the wound care clinic on speaking with the wound care physician there was pus, and the wound l ooked infected. The patient was therefore sent to the emergency room for further evaluation. In the emergency room the patient is afebrile, hemodynamically stable, labs are stable kidney function is at baseline at around 1.3 -1.4. Patient has minimal pain on the right lower extremity with movement otherwise no other acute complaints or concerns. The wound care physician is the primary provider managing this patient, patient to be taken to the OR for cleanup and debridement by Dr. Velasquez tomorrow morning. Hospitalist has been consulted to help manage the logistics of inpatient stay. Wound care physician has been consulted by the wound care provider. 07/19 Pt seen examined, no acute issues reported labs stable awaitin 07/20 Somewhat poor sleep but otherwise no complaints. Sitting in bed comfortably eating breakfast. No new pains or complaints. Had I&D and removal of hardware yesterday. 07/21 Okay. No overnight events. Had BMs last night after laxatives given. Boot dressings in place on the right ankle. No new complaints Review of Systems: denies headache/fever/chills/nausea/vomiting/chest or abdominal pain/cough/dyspnea/diarrhea. Otherwise see above. - Constitutional Vitals: Vital Signs Temp Pulse Resp BP Pulse Ox 97.7 F 89 16 133/81 95 07/21/18 03:53 07/21/18 03:53 07/21/18 03:53 07/21/18 03:53 07/21/18 03:53 Period Temp Pulse Resp BP Sys/Hoyt Pulse Ox Last 24 Hr 97.4 F-98.2 F 68-89 12-16 100-133/59-81 84-95 Intake and Output 07/20/18 07/21/18 07/21/18 21:59 05:59 13:59 Intake Total 1800 1252 Output Total 1250 2850 Balance 550 -1598 Weight 103.192 kg Intake & Output: Intake & Output 07/20/18 07/21/18 07/21/18 21:59 05:59 13:59 Intake Total 1800 1252 Output Total 1250 2850 Balance 550 -1598 Weight 103.192 kg Intake: IV 1000 952 Lactated Ringers 1,000 ml @ 84 1000 952 mls/hr IV .[id number] [facility] Rx#: [id number] Oral 800 300 Output: Void Amount 1250 2850 Other: Stool Size Moderate Small Stool Color Brown Brown Stool Consistency Loose Soft Formed # Voids 1 # Bowel Movements 1 1 Exam: General: Alert, Awake, No acute Distress Eyes/N/T: EOMI, Head/Neck: neck supple, CV: RRR, 1/6 SM Pulm: Clear b/l, no wheezing/rhonchi/rales Abd: soft, nontender, +BS x4 Ext: no clubbing/cyanosis, mild edema LLE. right ankle with dressings wraps and boot in place Neuro: Alert, no focal deficits, moves all extremities, Skin: warm/dry Medical - PN: Obj Da - Labs CBC & Chem 7: 07/20/18 04:15 07/20/18 04:15 Labs: Abnormal Lab Results 07/20/18 07/20/18 07/19/18 04:15 04:15 04:25 RBC 3.64 L Hgb 10.8 L Hct 33.6 L RDW [place] % (Auto) Eos % (Auto) Lymph # (Auto) 1.4 L ESR Chloride 110 H 109 H BUN 24 H 24 H Creatinine 1.2 H 1.2 H Alkaline Phosphatase 158 H 179 H C-Reactive Protein Albumin 3.1 L Globulin Albumin/Globulin Ratio 0.9 L 07/19/18 07/18/18 07/18/18 04:25 09:45 09:45 RBC 3.91 L Hgb 11.5 L Hct RDW 14.6 H [place] % (Auto) 12.1 H Eos % (Auto) 8.1 H Lymph # (Auto) 1.2 L ESR 47 H Chloride BUN 29 H Creatinine 1.4 H Alkaline Phosphatase 212 H C-Reactive Protein 1.6 H Albumin Globulin 4.2 H Albumin/Globulin Ratio Meds: Medications Hydrocodone Bitart/Acetaminophen ([place] 7.5/325mg) 1 - 2 tab PO Q4HP PRN PRN Reason: Pain Last Admin: 07/20/18 07:48 Dose: 1 tab Documented by: Cefepime HCl (Maxipime) 2 gm IV Q8H [facility]; Protocol Last Admin: 07/21/18 05:34 Dose: 2 gm Documented by: Clonazepam (Klonopin) 1 mg PO TID [facility] Last Admin: 07/20/18 21:28 Dose: 1 mg Documented by: Docusate Sodium (Colace) 100 mg PO BID PRN PRN Reason: Constipation Last Admin: 07/20/18 09:24 Dose: 100 mg Documented by: Famotidine (Pepcid) 20 mg PO BID [facility] Last Admin: 07/20/18 21:30 Dose: 20 mg Documented by: Heparin Sodium (Porcine) (Heparin) 5,000 unit SQ Q12 [facility] Last Admin: 07/20/18 21:51 Dose: 5,000 unit Documented by: Lactated Ringer's (Lactated Ringers) 1,000 mls @ 84 mls/hr IV .[id number] [facility] Last Admin: 07/21/18 03:39 Dose: 84 mls/hr Documented by: Vancomycin HCl 1,500 mg/ (Sodium Chloride) 500 mls @ 333.3 mls/hr IV Q24H [facility] Last Infusion: 07/20/18 13:42 Dose: Infused Documented by: Lactobacillus Rhamnosus (Culturelle) 1 cap PO DAILY [facility] Last Admin: 07/20/18 09:24 Dose: 1 cap Documented by: Levothyroxine Sodium (Synthroid) 75 mcg PO QAMAC [facility] Last Admin: 07/20/18 07:43 Dose: 75 mcg Documented by: Naloxone HCl (Narcan) 0.1 mg IV Q2MIN PRN PRN Reason: Opiate Reversal Oxcarbazepine [ Trileptal] 600 Mg Tab 300 mg PO BID [facility] Last Admin: 07/20/18 21:29 Dose: 300 mg Documented by: Olanzapine (Zyprexa) 20 mg PO [facility] Last Admin: 07/20/18 21:30 Dose: 20 mg Documented by: Ondansetron HCl (Zofran) 4 mg IV Q6HP PRN PRN Reason: Nausea And Vomiting Polyethylene Glycol (Miralax) 17 gm PO DAILY PRN PRN Reason: Constipation Last Admin: 07/20/18 09:22 Dose: 17 gm Documented by: Quetiapine Fumarate (Seroquel) 300 mg PO [facility] Last Admin: 07/20/18 21:30 Dose: 300 mg Documented by: Quetiapine Fumarate (Seroquel) 50 mg PO BID [facility] Last Admin: 07/20/18 21:30 Dose: 50 mg Documented by: Simvastatin (Zocor) 10 mg PO [facility] Last Admin: 07/20/18 21:30 Dose: 10 mg Documented by: Sodium Chloride (Saline Flush) 10 ml IV Q8 [facility] Last Admin: 07/21/18 05:34 Dose: 10 ml Documented by: Vancomycin HCl (Vancomycin Per Pharmacy) 1 order IV UD [facility]; Protocol Medical - PN: A/P - Time Spent With Patient Total time spent is greater than 50% in coordination of care (as documented) at patient's floor/unit and/or counseling patient: - Narrative A/P Narrative: A/P] *Post operative infection, right ankle: s/p I&D & hardware removal (07/19) *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 -Plan per Dr Velasquez and Dr Keane, -Patient has no e/o systemic infection -WC with Proteus -Antibiotic Management per Dr Winter/ Infectious disease. *CKD III: -Creat at baseline, attributed to use of lithium as per patient, not on lithium anymore, levels undetectable *Bipolar disorder -stable, resume home meds *Overweight: *Hypothyroidism: stable chr conditions, outpatient follow up *Constipation: resolved *ppx: heparin Full code. Medical - PN: Qual - VTE Deep Vein Thrombosis/Pulmonary Embolism Present on Admission: No
[2018-07-21] MEDS: LEVOTHYROXINE 75 MCG TABLET PO SCH (07:00)
[2018-07-21] MEDS ORDERED: FUROSEMIDE 20 MG/2 ML VIAL IV ONE (07:37)
[2018-07-21] MEDS: FAMOTIDINE 20 MG TABLET PO SCH ×2 (09:18→21:48)
[2018-07-21] MEDS: clonazePAM 1 MG TABLET PO SCH ×3 (09:18→21:48)
[2018-07-21] MEDS: HEPARIN 5,000 UNIT/ML VIAL SQ SCH ×2 (09:18→21:48)
[2018-07-21] MEDS: LACTOBACILLUS 1 CAPSULE PO SCH (09:19)
[2018-07-21] MEDS: Oxcarbazepine [Trileptal] 600 mg Tab PO SCH ×2 (09:19→21:48)
[2018-07-21] MEDS: QUEtiapine 25 MG TABLET PO SCH ×2 (09:19→21:48)
[2018-07-21] MEDS: VANCOMYCIN 1,500 MG in 0.9 % SODIUM CHLORIDE 500 ML IV SCH (11:56)
[2018-07-21] MEDS: HYDROCODONE/APAP 7.5/325MG TABLET PO PRN ×2 (13:02→18:53)
[2018-07-21] MEDS: SIMVASTATIN 10 MG TABLET PO SCH (21:47)
[2018-07-21] MEDS: OLANZapine 5 MG TABLET PO SCH (21:47)
[2018-07-21] MEDS: QUEtiapine 100 MG TABLET PO SCH (21:47)
[2018-07-22] MEDS: CEFEPIME 2 GM VIAL IV SCH ×3 (05:43→22:40)
[2018-07-22] MEDS: 0.9 % SODIUM CHLORIDE 10 ML SYRINGE IV SCH ×3 (05:43→22:40)
[2018-07-22] MEDS: LEVOTHYROXINE 75 MCG TABLET PO SCH (07:17)
[2018-07-22] MEDS: HEPARIN 5,000 UNIT/ML VIAL SQ SCH ×2 (08:26→22:35)
[2018-07-22] MEDS: LACTOBACILLUS 1 CAPSULE PO SCH (08:26)
[2018-07-22] MEDS: Oxcarbazepine [Trileptal] 600 mg Tab PO SCH ×2 (08:26→22:47)
[2018-07-22] MEDS: QUEtiapine 25 MG TABLET PO SCH ×2 (08:26→22:40)
[2018-07-22] MEDS: FAMOTIDINE 20 MG TABLET PO SCH ×2 (08:26→22:39)
[2018-07-22] MEDS: clonazePAM 1 MG TABLET PO SCH ×3 (08:26→22:39)
--- NOTE | 2018-07-22 08:52 | Internal Med Progress Note ---
Medical - PN: Subj Patient information: Note initiated : 07/22/18 at 8:51 am Service Date, if different from initiated Date: [] Patient: Yanni Topete a 67 y/o F admitted on 07/18/18 for Rt Ankle Wound. Chief Complaint: [] Interval history: Ms. Topete is a 67 year old F with history of bipolar disorder, chronic kidney disease presents to the hospital today for evaluation of her right lower extremity wound. The patient had history of fall in May, at which time she twisted her ankle and developed a complex fracture of the right ankle. She was operated by Dr. Velasquez in May and underwent an open reduction and internal fixation of the fracture. The patient was discharged subsequently. The patient apparently was managing her right lower extremity wound and blister however the patient's wound got progressively worse. There was some pussy discharge and she was seen in the wound care clinic today. In the wound care clinic on speaking with the wound care physician there was pus, and the wound l ooked infected. The patient was therefore sent to the emergency room for further evaluation. In the emergency room the patient is afebrile, hemodynamically stable, labs are stable kidney function is at baseline at around 1.3 -1.4. Patient has minimal pain on the right lower extremity with movement otherwise no other acute complaints or concerns. The wound care physician is the primary provider managing this patient, patient to be taken to the OR for cleanup and debridement by Dr. Velasquez tomorrow morning. Hospitalist has been consulted to help manage the logistics of inpatient stay. Wound care physician has been consulted by the wound care provider. 07/19 Pt seen examined, no acute issues reported labs stable awaitin 07/20 Somewhat poor sleep but otherwise no complaints. Sitting in bed comfortably eating breakfast. No new pains or complaints. Had I&D and removal of hardware yesterday. 07/21 Okay. No overnight events. Had BMs last night after laxatives given. Boot dressings in place on the right ankle. No new complaints 07/22 No overnight events. Feeling better. No new complaints. Seen by wound care this morning, wound appears to need further debridement. Review of Systems: denies headache/fever/chills/nausea/vomiting/chest or abdominal pain/cough/dyspnea/diarrhea. Otherwise see above. - Constitutional Vitals: Vital Signs Temp Pulse Resp BP Pulse Ox 97.1 F 97 H 16 135/87 93 07/22/18 06:29 07/22/18 06:29 07/22/18 06:29 07/22/18 06:29 07/22/18 06:29 Period Temp Pulse Resp BP Sys/Hoyt Pulse Ox Last 24 Hr 97.1 F-98.3 F 62-97 12-20 112-135/70-87 85-95 Intake and Output 07/21/18 07/22/18 07/22/18 21:59 05:59 13:59 Intake Total 1540 800 Output Total 875 950 500 Balance 665 -150 -500 Weight 99.564 kg Intake & Output: Intake & Output 07/21/18 07/22/18 07/22/18 21:59 05:59 13:59 Intake Total 1540 800 Output Total 875 950 500 Balance 665 -150 -500 Weight 99.564 kg Intake: IV 500 Oral 1040 800 Output: Void Amount 875 950 500 Other: Meal Dinner Percent of Meal Consumed 100% Feeding Ability Independent Urine Appearance Clear Urine Color Bright Yellow # Voids 1 1 Exam: General: Alert, Awake, No acute Distress Eyes/N/T: EOMI, Head/Neck: neck supple, CV: RRR, 1/6 SM Pulm: Clear b/l, no wheezing/rhonchi/rales Abd: soft, nontender, +BS x4 Ext: no clubbing/cyanosis, mild edema LLE. right ankle with large open wound and surrounding erythema. Neuro: Alert, no focal deficits, moves all extremities, Skin: warm/dry Medical - PN: Obj Da - Labs CBC & Chem 7: 07/20/18 04:15 07/20/18 04:15 Labs: Abnormal Lab Results 07/20/18 07/20/18 04:15 04:15 RBC 3.64 L Hgb 10.8 L Hct 33.6 L Lymph # (Auto) 1.4 L Chloride 110 H BUN 24 H Creatinine 1.2 H Alkaline Phosphatase 158 H Meds: Medications Hydrocodone Bitart/Acetaminophen ([place] 7.5/325mg) 1 - 2 tab PO Q4HP PRN PRN Reason: Pain Last Admin: 07/21/18 18:53 Dose: 1 tab Documented by: Cefepime HCl (Maxipime) 2 gm IV Q8H [facility]; Protocol Last Admin: 07/22/18 05:43 Dose: 2 gm Documented by: Clonazepam (Klonopin) 1 mg PO TID [facility] Last Admin: 07/22/18 08:26 Dose: 1 mg Documented by: Docusate Sodium (Colace) 100 mg PO BID PRN PRN Reason: Constipation Last Admin: 07/20/18 09:24 Dose: 100 mg Documented by: Famotidine (Pepcid) 20 mg PO BID [facility] Last Admin: 07/22/18 08:26 Dose: 20 mg Documented by: Heparin Sodium (Porcine) (Heparin) 5,000 unit SQ Q12 [facility] Last Admin: 07/22/18 08:26 Dose: 5,000 unit Documented by: Lactobacillus Rhamnosus (Culturelle) 1 cap PO DAILY [facility] Last Admin: 07/22/18 08:26 Dose: 1 cap Documented by: Levothyroxine Sodium (Synthroid) 75 mcg PO QAMAC [facility] Last Admin: 07/22/18 07:17 Dose: 75 mcg Documented by: Naloxone HCl (Narcan) 0.1 mg IV Q2MIN PRN PRN Reason: Opiate Reversal Oxcarbazepine [ Trileptal] 600 Mg Tab 300 mg PO BID [facility] Last Admin: 07/22/18 08:26 Dose: 300 mg Documented by: Olanzapine (Zyprexa) 20 mg PO [facility] Last Admin: 07/21/18 21:47 Dose: 20 mg Documented by: Ondansetron HCl (Zofran) 4 mg IV Q6HP PRN PRN Reason: Nausea And Vomiting Polyethylene Glycol (Miralax) 17 gm PO DAILY PRN PRN Reason: Constipation Last Admin: 07/20/18 09:22 Dose: 17 gm Documented by: Quetiapine Fumarate (Seroquel) 300 mg PO [facility] Last Admin: 07/21/18 21:47 Dose: 300 mg Documented by: Quetiapine Fumarate (Seroquel) 50 mg PO BID [facility] Last Admin: 07/22/18 08:26 Dose: 50 mg Documented by: Simvastatin (Zocor) 10 mg PO [facility] Last Admin: 07/21/18 21:47 Dose: 10 mg Documented by: Sodium Chloride (Saline Flush) 10 ml IV Q8 [facility] Last Admin: 07/22/18 05:43 Dose: 10 ml Documented by: Medical - PN: A/P - Time Spent With Patient Total time spent is greater than 50% in coordination of care (as documented) at patient's floor/unit and/or counseling patient: - Narrative A/P Narrative: A/P] *Post operative infection/osteo right ankle: s/p I&D & hardware removal (07/19) *Right lower extremity infected Ulcer: -Plan per Dr Velasquez and Dr Keane. Likely needs further surgical debridement -Patient has no e/o systemic infection -WC with Proteus and other GNB -Antibiotic Management per Dr Winter/ Infectious disease. *CKD III: -Creat at baseline, attributed to use of lithium as per patient, not on lithium anymore, levels undetectable *Bipolar disorder -stable, resume home meds *Overweight: *Hypothyroidism: stable chr conditions, outpatient follow up *Constipation: resolved *ppx: heparin Full code. Medical - PN: Qual - VTE Deep Vein Thrombosis/Pulmonary Embolism Present on Admission: No
--- NOTE | 2018-07-22 10:48 | General Surgery Progress Note ---
Subjective Narrative: Note initiated : 07/22/18 at 10:44 am Service Date, if different from initiated Date: [] Patient: Yanni Topete 67 y/o F admitted on 07/18/18 for Rt Ankle Wound. Chief Complaint: [] Patient seen along with Stefanie RN, Inpatient wound care nurse. WOUND examined. Objective Temp Pulse Resp BP Pulse Ox 97.1 F 97 H 16 135/87 93 07/22/18 06:29 07/22/18 06:29 07/22/18 06:29 07/22/18 06:29 07/22/18 06:29 AVSS. No acute changes in ALEX. L/E: Wound is covered with slough and has strong odor and local tenderness. Circumferential undermining. C/S. Swarming with pseudomonas aeruginosa. ?? Other organisms. Dressings stained yellow / green. - Additional Data Intake & Output - Last 24 hours: Intake & Output 07/20/18 07/21/18 07/22/18 07/23/18 05:59 05:59 05:59 05:59 Intake Total 3797 4592 3583 Output Total 5950 4100 4726 500 Balance -2153 492 -1143 -500 Weight 227 lb 227 lb 8 oz 219 lb 8 oz - Labs 07/20/18 04:15 07/20/18 04:15 Assessment and Plan (1) Complication due to device, implant, or graft Status: Acute Current Visit: Yes - Time Spent With Patient Total time spent is greater than 50% in coordination of care (as documented) at patient's floor/unit and/or counseling patient: Assessment: Post surgical wound. ?? Polymicrobial infection. S/P excision of necrotic tissue on 07/19/2018 Plan: NOT READY FOR DISCHARGE: Await ID recommendations. See new wound care orders. MAY NEED FURTHER DEBRIDEMENT. Monitor progress closely. SPOKE with Dr. Velasquez and Dr. White. 15 - 24 minutes
--- NOTE | 2018-07-22 12:30 | Infectious Disease Prog Note ---
Subjective Patient information: Note initiated : 07/22/18 at 12:18 pm Service Date, if different from initiated Date: [] Patient: Yanni Topete 67 y/o F admitted on 07/18/18 for Rt Ankle Wound. Chief Complaint: [] Principal diagnosis: open ankle wound s/p I&D Pertinent ROS: Pt is doing fine. Reports some right ankle pain. Denied any fevers, chills, n/v. Endorses some loose stools today as she was constipated and tried butter plus prune juice. Denies any pain in ankle joint or feet Objective Objective Narrative: ao x 3, in nad no thrush the right ankle wound: warm to touch on the surrounding skin, foul odor, whitish slough seen on the proximal part of the wound, dusky looking ulcer base, the base doesnot bleed to touch, some tunnelling into surrounding tissues with serous drainage no pain with active movement of right ankle joint and toes peripheral pulses palpable - Vital Signs Vital signs: Vital Signs Temp Pulse Resp BP Pulse Ox 07/22/18 11:09 36.5 C 75 18 116/77 94 07/22/18 06:29 36.2 C 97 H 16 135/87 93 07/22/18 04:46 91 H 12 117/76 92 07/22/18 00:33 36.8 C 62 12 120/70 93 07/21/18 22:13 93 07/21/18 18:57 36.8 C 78 20 117/72 94 07/21/18 15:55 36.7 C 80 18 128/70 95 Intake and Output 07/21/18 07/22/18 07/22/18 21:59 05:59 13:59 Intake Total 1540 800 Output Total 875 950 500 Balance 665 -150 -500 Intake: IV 500 Oral 1040 800 Output: Void Amount 875 950 500 Other: Meal Dinner Percent of Meal Consumed 100% Feeding Ability Independent Urine Appearance Clear Urine Color Bright Yellow # Voids 1 1 Weight 99.564 kg Intake & Output: Intake & Output 07/21/18 07/22/18 07/22/18 21:59 05:59 13:59 Intake Total 1540 800 Output Total 875 950 500 Balance 665 -150 -500 Weight 99.564 kg Intake: IV 500 Oral 1040 800 Output: Void Amount 875 950 500 Other: Meal Dinner Percent of Meal Consumed 100% Feeding Ability Independent Urine Appearance Clear Urine Color Bright Yellow # Voids 1 1 - Lab 07/20/18 04:15 07/20/18 04:15 Most recent lab results Calcium 8.9 mg/dl (8.6-10.4) 07/20/18 04:15 Phosphorus 3.9 mg/dL (2.7-4.5) 07/20/18 04:15 Magnesium 1.8 mg/dL (1.6-2.5) 07/20/18 04:15 Microbiology 07/19/18 11:09 Ankle - Right Gram Stain - Final 07/19/18 11:09 Ankle - Right Gram Stain - Final 07/19/18 11:09 Ankle - Right Anaerobic Culture - Preliminary 07/19/18 11:09 Ankle - Right Gram Stain - Final 07/19/18 11:09 Ankle - Right Wound Culture - Preliminary Swarming proteus Gram negative bacillus 07/18/18 09:51 Blood Blood Culture - Preliminary 07/18/18 10:00 Blood Blood Culture - Preliminary 07/19/18 11:09 Ankle - Right Gram Stain - Final 07/19/18 11:09 Ankle - Right Anaerobic Culture - Preliminary 07/19/18 11:09 Ankle - Right Gram Stain - Final 07/19/18 11:09 Ankle - Right Wound Culture - Preliminary Proteus mirabilis Gram negative bacillus 07/19/18 20:15 Nose MRSA (PCR) - Final 07/19/18 11:09 Ankle - Right Gram Stain - Final Medications Active Medications: Hydrocodone Bitart/Acetaminophen ([place] 7.5/325mg) 1 - 2 tab PO Q4HP PRN PRN Reason: Pain Last Admin: 07/21/18 18:53 Dose: 1 tab Documented by: Admin: 07/21/18 13:02 Dose: 1 tab Documented by: Admin: 07/20/18 07:48 Dose: 1 tab Documented by: Admin: 07/19/18 23:53 Dose: 1 tab Documented by: Admin: 07/19/18 21:45 Dose: 1 tab Documented by: DAYSI Cefepime HCl (Maxipime) 2 gm IV Q8H [facility]; Protocol Last Admin: 07/22/18 05:43 Dose: 2 gm Documented by: Admin: 07/21/18 21:58 Dose: 2 gm Documented by: Admin: 07/21/18 13:40 Dose: 2 gm Documented by: Admin: 07/21/18 05:34 Dose: 2 gm Documented by: Admin: 07/20/18 21:51 Dose: 2 gm Documented by: Admin: 07/20/18 13:42 Dose: 2 gm Documented by: Admin: 07/20/18 05:49 Dose: 2 gm Documented by: Admin: 07/19/18 21:46 Dose: 2 gm Documented by: Admin: 07/19/18 14:44 Dose: 2 gm Documented by: SHAHRZAD Clonazepam (Klonopin) 1 mg PO TID [facility] Last Admin: 07/22/18 08:26 Dose: 1 mg Documented by: [email or web address] Admin: 07/21/18 21:48 Dose: 1 mg Documented by: Admin: 07/21/18 15:05 Dose: 1 mg Documented by: Admin: 07/21/18 09:18 Dose: 1 mg Documented by: Admin: 07/20/18 21:28 Dose: 1 mg Documented by: Admin: 07/20/18 15:13 Dose: 1 mg Documented by: Admin: 07/20/18 09:24 Dose: 1 mg Documented by: Admin: 07/19/18 21:42 Dose: 1 mg Documented by: Admin: 07/19/18 15:08 Dose: 1 mg Documented by: Admin: 07/19/18 10:14 Dose: Not Given Documented by: [email or web address] Non-Admin Reason: NPO Admin: 07/18/18 21:01 Dose: 1 mg Documented by: Admin: 07/18/18 15:30 Dose: 1 mg Documented by: CAM Docusate Sodium (Colace) 100 mg PO BID PRN PRN Reason: Constipation Last Admin: 07/20/18 09:24 Dose: 100 mg Documented by: Admin: 07/19/18 21:41 Dose: 100 mg Documented by: DAYSI Famotidine (Pepcid) 20 mg PO BID [facility] Last Admin: 07/22/18 08:26 Dose: 20 mg Documented by: [email or web address] Admin: 07/21/18 21:48 Dose: 20 mg Documented by: Admin: 07/21/18 09:18 Dose: 20 mg Documented by: Admin: 07/20/18 21:30 Dose: 20 mg Documented by: Admin: 07/20/18 09:24 Dose: 20 mg Documented by: Admin: 07/19/18 21:42 Dose: 20 mg Documented by: Admin: 07/19/18 10:14 Dose: Not Given Documented by: SHAHRZAD Non-Admin Reason: NPO Admin: 07/18/18 21:01 Dose: 20 mg Documented by: DARIUS Heparin Sodium (Porcine) (Heparin) 5,000 unit SQ Q12 [facility] Last Admin: 07/22/18 08:26 Dose: 5,000 unit Documented by: Admin: 07/21/18 21:48 Dose: 5,000 unit Documented by: Admin: 07/21/18 09:18 Dose: 5,000 unit Documented by: Admin: 07/20/18 21:51 Dose: 5,000 unit Documented by: Admin: 07/20/18 09:22 Dose: 5,000 unit Documented by: AMINTA Gentamicin Sulfate 40 mg/Clindamycin Phosphate 300 mg/Bacitracin 25,000 unit/ Sodium Chloride 503 mls @ 0 mls/hr IRR TID [facility] Lactobacillus Rhamnosus (Culturelle) 1 cap PO DAILY [facility] Admin: 07/22/18 08:26 Dose: 1 cap Documented by: Admin: 07/21/18 09:19 Dose: 1 cap Documented by: Admin: 07/20/18 09:24 Dose: 1 cap Documented by: Admin: 07/19/18 10:14 Dose: Not Given Documented by: SHAHRZAD Non-Admin Reason: NPO Levothyroxine Sodium (Synthroid) 75 mcg PO QAMAC [facility] Last Admin: 07/22/18 07:17 Dose: 75 mcg Documented by: [email or web address] Admin: 07/21/18 07:00 Dose: 75 mcg Documented by: Admin: 07/20/18 07:43 Dose: 75 mcg Documented by: Admin: 07/19/18 06:55 Dose: Not Given Documented by: SHAHRZAD Non-Admin Reason: NPO Naloxone HCl (Narcan) 0.1 mg IV Q2MIN PRN PRN Reason: Opiate Reversal Oxcarbazepine [ Trileptal] 600 Mg Tab 300 mg PO BID [facility] Last Admin: 07/22/18 08:26 Dose: 300 mg Documented by: [email or web address] Admin: 07/21/18 21:48 Dose: 300 mg Documented by: Admin: 07/21/18 09:19 Dose: 300 mg Documented by: Admin: 07/20/18 21:29 Dose: 300 mg Documented by: Admin: 07/20/18 09:23 Dose: 300 mg Documented by: Admin: 07/19/18 21:42 Dose: 300 mg Documented by: Admin: 07/19/18 10:14 Dose: Not Given Documented by: SHAHRZAD Non-Admin Reason: NPO Admin: 07/18/18 21:00 Dose: 300 mg Documented by: DARIUS Olanzapine (Zyprexa) [address] [facility] Last Admin: 07/21/18 21:47 Dose: 20 mg Documented by: Admin: 07/20/18 21:30 Dose: 20 mg Documented by: Admin: 07/19/18 21:41 Dose: 20 mg Documented by: Admin: 07/18/18 21:01 Dose: 20 mg Documented by: DARIUS Ondansetron HCl (Zofran) 4 mg IV Q6HP PRN PRN Reason: Nausea And Vomiting Polyethylene Glycol (Miralax) 17 gm PO DAILY PRN PRN Reason: Constipation Last Admin: 07/20/18 09:22 Dose: 17 gm Documented by: AMINTA Quetiapine Fumarate (Seroquel) [address] [facility] Last Admin: 07/21/18 21:47 Dose: 300 mg Documented by: Admin: 07/20/18 21:30 Dose: 300 mg Documented by: DAYSI Quetiapine Fumarate (Seroquel) 50 mg PO BID [facility] Last Admin: 07/22/18 08:26 Dose: 50 mg Documented by: [email or web address] Admin: 07/21/18 21:48 Dose: 50 mg Documented by: Admin: 07/21/18 09:19 Dose: 50 mg Documented by: Admin: 07/20/18 21:30 Dose: 50 mg Documented by: DAYSI Simvastatin (Zocor) 10 mg PO HS [facility] Last Admin: 07/21/18 21:47 Dose: 10 mg Documented by: Admin: 07/20/18 21:30 Dose: 10 mg Documented by: Admin: 07/19/18 21:42 Dose: 10 mg Documented by: Admin: 07/18/18 21:01 Dose: 10 mg Documented by: DARIUS Sodium Chloride (Saline Flush) 10 ml IV Q8 [facility] Last Admin: 07/22/18 05:43 Dose: 10 ml Documented by: Admin: 07/21/18 21:49 Dose: Not Given Documented by: DAYSI Non-Admin Reason: Duplicate Admin: 07/21/18 18:58 Dose: 10 ml Documented by: Admin: 07/21/18 13:03 Dose: 10 ml Documented by: Admin: 07/21/18 05:34 Dose: 10 ml Documented by: Admin: 07/20/18 21:52 Dose: 10 ml Documented by: Admin: 07/20/18 12:42 Dose: Not Given Documented by: JOSEPHINE Non-Admin Reason: Continuous IV Admin: 07/20/18 05:49 Dose: 10 ml Documented by: Admin: 07/19/18 21:48 Dose: 10 ml Documented by: Admin: 07/19/18 21:46 Dose: Not Given Documented by: DAYSI Non-Admin Reason: Continuous IV Admin: 07/19/18 14:44 Dose: 10 ml Documented by: Admin: 07/19/18 06:55 Dose: Not Given Documented by: SHAHRZAD Non-Admin Reason: Bag Still Infusing Admin: 07/18/18 21:02 Dose: Not Given Documented by: DARIUS Non-Admin Reason: Bag Still Infusing Assessment and Plan - Narrative A/P Narrative: A: 1. Deep post-surgical infection of right ankle tissues and tibia with hardware involvement,Hx of ORIF approximately 7 weeks ago: current wound exam concerning for some residual infection - POD #3, s/p I & D and removal of 2 screws, with findings of "necrotic tendon and soft tissue with exposed screw heads and nonunion of the medial fracture" - operative Cx growing Enterobacter cloacae (sens to FQ, Cefepime) and Proteus mirabilis (lucero sens). 2nd gen and 3rd gen cephalosporins not to be used for Enterobacter due to concerns for chromosomal derepression of AmpC beta-lact amases - IV Vanc was stopped yesterday as no gram positive organisms isolated 2. No sepsis: q-SOFA score 0 Recommendations: - Consider further debridement of the right ankle surgical wound, given exam findings of foul-smell, white colored exudate over the base of surgical wound. - Continue IV Cefepime 2 gm q8 hrs for now as there is still some residual infection - Once patient no longer requires further debridement and is ready for discharge, will switch her to PO Ciprofloxacin 750 mg bid for 4-6 weeks with follow-up in ID clinic will follow Velasquez Winter M.D. Infectious diseases
--- NOTE | 2018-07-22 12:32 | Surgical Pathology Report ---
HISTOLOGY SPECIMEN MICROSCOPIC DIAGNOSIS BONE, RIGHT MEDIAL ANKLE, BIOPSY: -- ACUTE OSTEOMYELITIS. (DMT:sln) PROCEDURAL IMPRESSION Infected right ankle wound with some necrosis. GROSS DESCRIPTION Received in formalin labeled bone biopsy medial right ankle, is a 1.0 x 0.9 x 0.1 cm pink-mercer fragment of bony tissue. Trisected, totally submitted - one cassette. The specimen will undergo decalcification before processing. (KGW:leonard) Electronically Signed by: Hank Bee M.D.
[2018-07-22] MEDS: HYDROCODONE/APAP 7.5/325MG TABLET PO PRN (12:33)
[2018-07-22] MEDS: GENTAMICIN SULFATE 40 MG, CLINDAMYCIN 300 MG, BACITRACIN 25,000 UNIT in SODIUM CHLORIDE... IRR SCH ×3 (17:17→22:36)
[2018-07-22] MEDS: OLANZapine 5 MG TABLET PO SCH (22:39)
[2018-07-22] MEDS: QUEtiapine 100 MG TABLET PO SCH (22:39)
[2018-07-22] MEDS: SIMVASTATIN 10 MG TABLET PO SCH (22:39)
[2018-07-23] MEDS: CEFEPIME 2 GM VIAL IV SCH ×3 (05:06→21:30)
[2018-07-23] MEDS: 0.9 % SODIUM CHLORIDE 10 ML SYRINGE IV SCH ×3 (05:06→21:30)
[2018-07-23] MEDS: LEVOTHYROXINE 75 MCG TABLET PO SCH (07:48)
[2018-07-23] MEDS: GENTAMICIN SULFATE 40 MG, CLINDAMYCIN 300 MG, BACITRACIN 25,000 UNIT in SODIUM CHLORIDE... IRR SCH ×3 (09:32→19:14)
[2018-07-23] MEDS: Oxcarbazepine [Trileptal] 600 mg Tab PO SCH ×2 (09:45→19:23)
[2018-07-23] MEDS: HEPARIN 5,000 UNIT/ML VIAL SQ SCH ×2 (09:46→19:21)
[2018-07-23] MEDS: QUEtiapine 25 MG TABLET PO SCH ×2 (09:47→19:21)
[2018-07-23] MEDS: FAMOTIDINE 20 MG TABLET PO SCH ×2 (09:47→19:21)
[2018-07-23] MEDS: LACTOBACILLUS 1 CAPSULE PO SCH (09:49)
[2018-07-23] MEDS: clonazePAM 1 MG TABLET PO SCH ×3 (09:49→19:21)
--- NOTE | 2018-07-23 10:22 | General Surgery Progress Note ---
Subjective Patient reports: no new complaints (Patient seen with Stefanie director career nurse. ) Narrative: Note initiated : 07/23/18 at 10:19 am Service Date, if different from initiated Date: [] Patient: Yanni Topete 67 y/o F admitted on 07/18/18 for Rt Ankle Wound. Chief Complaint: [] Objective Temp Pulse Resp BP Pulse Ox 97.6 F 80 16 120/78 93 07/23/18 07:59 07/23/18 07:59 07/23/18 07:59 07/23/18 07:59 07/23/18 07:59 AVSS> No Changes in ALEX. Wound examined. Gradual improvement. UNDERMINING at 12'O Clock and along medial wound margin Granulating base. Polymicrobial infection. ID INPUT appreciated. SPOKE with Dr. Velasquez. - Additional Data Intake & Output - Last 24 hours: Intake & Output 07/21/18 07/22/18 07/23/18 07/24/18 05:59 05:59 05:59 05:59 Intake Total 4592 3583 1100 480 Output Total 4100 4726 2475 Balance 492 -1143 -1375 480 Weight 227 lb 8 oz 219 lb 8 oz 221 lb - Labs 07/20/18 04:15 07/20/18 04:15 Assessment and Plan (1) Complication due to device, implant, or graft Status: Acute Current Visit: Yes - Narrative A/P Narrative: Assessment: CSSSI Right lower leg. S/O ORIF over 6 weeks ago S/P INITIAL OR debridement > 4 days ago. Gradual demarcation, Plan: Redebridement. Pulse lavage irrigation. EpiFix powder. Possible STSG and Wound VAC Will consider adjuvant HBOT. Continuation of Physical Therapy. SWING BED STATUS. - Time Spent With Patient Total time spent is greater than 50% in coordination of care (as documented) at patient's floor/unit and/or counseling patient: 15 - 24 minutes
[2018-07-23] MEDS: HYDROCODONE/APAP 7.5/325MG TABLET PO PRN (15:11)
--- NOTE | 2018-07-23 16:08 | Infectious Disease Prog Note ---
Subjective Patient information: Note initiated : 07/23/18 at 4:05 pm Service Date, if different from initiated Date: [] Patient: Yanni Topete 67 y/o F admitted on 07/18/18 for Rt Ankle Wound. Chief Complaint: [] Principal diagnosis: open ankle wound s/p I&D Interval history: Pt doing fine. Denies any fever, chills, n/v, diarrhea. Is to undergo surgery tomorrow am for further cleaning of the wound. Was anxious about it, and what would happen to her after discharge. Answered her questions. Objective Objective Narrative: ao x 3, in nad no thrush chest cta for most part except for decreases BS at bases s1 s2 normal bs ++, nttd the right ankle wound is covered under the dressing - Vital Signs Vital signs: Vital Signs Temp Pulse Resp BP BP Pulse Ox 07/23/18 15:45 36.4 C 94 H 16 111/78 96 07/23/18 11:53 36.4 C 88 18 104/78 94 07/23/18 07:59 36.4 C 80 16 120/78 93 07/23/18 04:00 37.1 C 81 18 112/69 91 07/23/18 00:00 37.3 C H 85 18 101/65 90 07/22/18 20:00 36.7 C 80 18 123/79 92 Intake and Output 07/23/18 07/23/18 07/23/18 05:59 13:59 21:59 Intake Total 480 550 Output Total 1575 500 Balance -1575 -20 550 Intake: Oral 480 550 Output: Void Amount 1575 Urine/Stool Mix 500 Other: Meal Breakfast Percent of Meal Consumed 100% Feeding Ability Independent Urine Appearance Clear Clear Urine Color Pale Pale Urine Odor Normal Normal Stool Size Smear Stool Color Brown # Voids 1 1 Intake & Output: Intake & Output 07/23/18 07/23/18 07/23/18 05:59 13:59 21:59 Intake Total 480 550 Output Total 1575 500 Balance -1575 -20 550 Intake: Oral 480 550 Output: Void Amount 1575 Urine/Stool Mix 500 Other: Meal Breakfast Percent of Meal Consumed 100% Feeding Ability Independent Urine Appearance Clear Clear Urine Color Pale Pale Urine Odor Normal Normal Stool Size Smear Stool Color Brown # Voids 1 1 - Lab 07/20/18 04:15 07/20/18 04:15 Most recent lab results Calcium 8.9 mg/dl (8.6-10.4) 07/20/18 04:15 Phosphorus 3.9 mg/dL (2.7-4.5) 07/20/18 04:15 Magnesium 1.8 mg/dL (1.6-2.5) 07/20/18 04:15 Microbiology 07/18/18 09:51 Blood Blood Culture - Final 07/18/18 10:00 Blood Blood Culture - Final 07/19/18 11:09 Ankle - Right Gram Stain - Final 07/19/18 11:09 Ankle - Right Anaerobic Culture - Preliminary 07/19/18 11:09 Ankle - Right Gram Stain - Final 07/19/18 11:09 Ankle - Right Wound Culture - Preliminary Proteus mirabilis Enterobacter cloacae Gram negative bacillus 07/19/18 11:09 Ankle - Right Gram Stain - Final 07/19/18 11:09 Ankle - Right Gram Stain - Final 07/19/18 11:09 Ankle - Right Anaerobic Culture - Preliminary 07/19/18 11:09 Ankle - Right Gram Stain - Final 07/19/18 11:09 Ankle - Right Wound Culture - Final Enterobacter cloacae Proteus mirabilis 07/19/18 20:15 Nose MRSA (PCR) - Final 07/19/18 11:09 Ankle - Right Gram Stain - Final Medications Active Medications: Hydrocodone Bitart/Acetaminophen ([place] 7.5/325mg) 1 - 2 tab PO Q4HP PRN PRN Reason: Pain Last Admin: 07/23/18 15:11 Dose: 1 tab Documented by: OMAR Cosigned by: GILBERTO Admin: 07/22/18 12:33 Dose: 1 tab Documented by: [email or web address] Admin: 07/21/18 18:53 Dose: 1 tab Documented by: Admin: 07/21/18 13:02 Dose: 1 tab Documented by: Admin: 07/20/18 07:48 Dose: 1 tab Documented by: Admin: 07/19/18 23:53 Dose: 1 tab Documented by: Admin: 07/19/18 21:45 Dose: 1 tab Documented by: DAYSI Cefepime HCl (Maxipime) 2 gm IV Q8H [facility]; Protocol Last Admin: 07/23/18 14:39 Dose: 2 gm Documented by: OMAR Cosigned by: AILYN Admin: 07/23/18 05:06 Dose: 2 gm Documented by: Admin: 07/22/18 22:40 Dose: 2 gm Documented by: Admin: 07/22/18 17:04 Dose: 2 gm Documented by: Admin: 07/22/18 05:43 Dose: 2 gm Documented by: Admin: 07/21/18 21:58 Dose: 2 gm Documented by: Admin: 07/21/18 13:40 Dose: 2 gm Documented by: Admin: 07/21/18 05:34 Dose: 2 gm Documented by: Admin: 07/20/18 21:51 Dose: 2 gm Documented by: Admin: 07/20/18 13:42 Dose: 2 gm Documented by: Admin: 07/20/18 05:49 Dose: 2 gm Documented by: Admin: 07/19/18 21:46 Dose: 2 gm Documented by: Admin: 07/19/18 14:44 Dose: 2 gm Documented by: SHAHRZAD Clonazepam (Klonopin) 1 mg PO TID [facility] Admin: 07/23/18 14:38 Dose: 1 mg Documented by: OMAR Cosigned by: AILYN Admin: 07/23/18 09:49 Dose: 1 mg Documented by: OMAR Parkerigned by: AILYN Admin: 07/22/18 22:39 Dose: 1 mg Documented by: Admin: 07/22/18 17:05 Dose: 1 mg Documented by: Admin: 07/22/18 08:26 Dose: 1 mg Documented by: Admin: 07/21/18 21:48 Dose: 1 mg Documented by: Admin: 07/21/18 15:05 Dose: 1 mg Documented by: Admin: 07/21/18 09:18 Dose: 1 mg Documented by: Admin: 07/20/18 21:28 Dose: 1 mg Documented by: Admin: 07/20/18 15:13 Dose: 1 mg Documented by: Admin: 07/20/18 09:24 Dose: 1 mg Documented by: Admin: 07/19/18 21:42 Dose: 1 mg Documented by: Admin: 07/19/18 15:08 Dose: 1 mg Documented by: Admin: 07/19/18 10:14 Dose: Not Given Documented by: SHAHRZAD Non-Admin Reason: NPO Admin: 07/18/18 21:01 Dose: 1 mg Documented by: Admin: 07/18/18 15:30 Dose: 1 mg Documented by: CAM Docusate Sodium (Colace) 100 mg PO BID PRN PRN Reason: Constipation Last Admin: 07/20/18 09:24 Dose: 100 mg Documented by: Admin: 07/19/18 21:41 Dose: 100 mg Documented by: DAYSI Famotidine (Pepcid) 20 mg PO BID [facility] Admin: 07/23/18 09:47 Dose: 20 mg Documented by: OMAR Cosigned by: AILYN Admin: 07/22/18 22:39 Dose: 20 mg Documented by: Admin: 07/22/18 08:26 Dose: 20 mg Documented by: [email or web address] Admin: 07/21/18 21:48 Dose: 20 mg Documented by: Admin: 07/21/18 09:18 Dose: 20 mg Documented by: Admin: 07/20/18 21:30 Dose: 20 mg Documented by: Admin: 07/20/18 09:24 Dose: 20 mg Documented by: Admin: 07/19/18 21:42 Dose: 20 mg Documented by: Admin: 07/19/18 10:14 Dose: Not Given Documented by: SHAHRZAD Non-Admin Reason: NPO Admin: 07/18/18 21:01 Dose: 20 mg Documented by: DARIUS Heparin Sodium (Porcine) (Heparin) 5,000 unit SQ Q12 [facility] Last Admin: 07/23/18 09:46 Dose: 5,000 unit Documented by: OMAR Cosigned by: AILYN Admin: 07/22/18 22:35 Dose: 5,000 unit Documented by: Admin: 07/22/18 08:26 Dose: 5,000 unit Documented by: [email or web address] Admin: 07/21/18 21:48 Dose: 5,000 unit Documented by: Admin: 07/21/18 09:18 Dose: 5,000 unit Documented by: Admin: 07/20/18 21:51 Dose: 5,000 unit Documented by: Admin: 07/20/18 09:22 Dose: 5,000 unit Documented by: AMINTA Gentamicin Sulfate 40 mg/Clindamycin Phosphate 300 mg/Bacitracin 25,000 unit/ Sodium Chloride 1,003 mls @ 0 mls/hr IRR ONCE [facility] Stop: 07/24/18 12:00 Gentamicin Sulfate 40 mg/Clindamycin Phosphate 300 mg/Bacitracin 25,000 unit/ Sodium Chloride 503 mls @ 0 mls/hr IRR TID [facility] Stop: 07/23/18 21:01 Last Admin: 07/23/18 15:53 Dose: 1 mls/hr Documented by: OMAR Cosigned by: GILBERTO Comments: scanner does not recognize barcode Lactobacillus Rhamnosus (Culturelle) 1 cap PO DAILY [facility] Last Admin: 07/23/18 09:49 Dose: 1 cap Documented by: OMAR Cosigned by: [email or web address] Admin: 07/22/18 08:26 Dose: 1 cap Documented by: Admin: 07/21/18 09:19 Dose: 1 cap Documented by: Admin: 07/20/18 09:24 Dose: 1 cap Documented by: Admin: 07/19/18 10:14 Dose: Not Given Documented by: SHAHRZAD Non-Admin Reason: NPO Levothyroxine Sodium (Synthroid) 75 mcg PO QAMAC [facility] Last Admin: 07/23/18 07:48 Dose: 75 mcg Documented by: OMAR Cosigned by: [email or web address] Admin: 07/22/18 07:17 Dose: 75 mcg Documented by: Admin: 07/21/18 07:00 Dose: 75 mcg Documented by: Admin: 07/20/18 07:43 Dose: 75 mcg Documented by: Admin: 07/19/18 06:55 Dose: Not Given Documented by: SHAHRZAD Non-Admin Reason: NPO Naloxone HCl (Narcan) 0.1 mg IV Q2MIN PRN PRN Reason: Opiate Reversal Oxcarbazepine [ Trileptal] 600 Mg Tab 300 mg PO BID [facility] Admin: 07/23/18 09:45 Dose: 300 mg Documented by: OMAR Parkerigned by: AILYN Admin: 07/22/18 22:47 Dose: 300 mg Documented by: Admin: 07/22/18 08:26 Dose: 300 mg Documented by: [email or web address] Admin: 07/21/18 21:48 Dose: 300 mg Documented by: Admin: 07/21/18 09:19 Dose: 300 mg Documented by: Admin: 07/20/18 21:29 Dose: 300 mg Documented by: Admin: 07/20/18 09:23 Dose: 300 mg Documented by: Admin: 07/19/18 21:42 Dose: 300 mg Documented by: Admin: 07/19/18 10:14 Dose: Not Given Documented by: SHAHRZAD Non-Admin Reason: NPO Admin: 07/18/18 21:00 Dose: 300 mg Documented by: DARIUS Olanzapine (Zyprexa) 20 mg PO [facility] Admin: 07/22/18 22:39 Dose: 20 mg Documented by: Admin: 07/21/18 21:47 Dose: 20 mg Documented by: Admin: 07/20/18 21:30 Dose: 20 mg Documented by: Admin: 07/19/18 21:41 Dose: 20 mg Documented by: Admin: 07/18/18 21:01 Dose: 20 mg Documented by: DARIUS Ondansetron HCl (Zofran) 4 mg IV Q6HP PRN PRN Reason: Nausea And Vomiting Polyethylene Glycol (Miralax) 17 gm PO DAILY PRN PRN Reason: Constipation Last Admin: 07/20/18 09:22 Dose: 17 gm Documented by: AMINTA Quetiapine Fumarate (Seroquel) 300 mg PO [facility] Last Admin: 07/22/18 22:39 Dose: 300 mg Documented by: Admin: 07/21/18 21:47 Dose: 300 mg Documented by: Admin: 07/20/18 21:30 Dose: 300 mg Documented by: DAYSI Quetiapine Fumarate (Seroquel) 50 mg PO BID [facility] Last Admin: 07/23/18 09:47 Dose: 50 mg Documented by: OMAR Cosigned by: AILYN Admin: 07/22/18 22:40 Dose: 50 mg Documented by: Admin: 07/22/18 08:26 Dose: 50 mg Documented by: Admin: 07/21/18 21:48 Dose: 50 mg Documented by: Admin: 07/21/18 09:19 Dose: 50 mg Documented by: Admin: 07/20/18 21:30 Dose: 50 mg Documented by: DAYSI Simvastatin (Zocor) 10 mg PO HS [facility] Admin: 07/22/18 22:39 Dose: 10 mg Documented by: Admin: 07/21/18 21:47 Dose: 10 mg Documented by: Admin: 07/20/18 21:30 Dose: 10 mg Documented by: Admin: 07/19/18 21:42 Dose: 10 mg Documented by: Admin: 07/18/18 21:01 Dose: 10 mg Documented by: DARIUS Sodium Chloride (Saline Flush) 10 ml IV Q8 [facility] Admin: 07/23/18 15:12 Dose: 10 ml Documented by: OMAR Cosigned by: UMIASTER Admin: 07/23/18 05:06 Dose: 10 ml Documented by: Admin: 07/22/18 22:40 Dose: 10 ml Documented by: Admin: 07/22/18 17:18 Dose: 10 ml Documented by: Admin: 07/22/18 05:43 Dose: 10 ml Documented by: Admin: 07/21/18 21:49 Dose: Not Given Documented by: DAYSI Non-Admin Reason: Duplicate Admin: 07/21/18 18:58 Dose: 10 ml Documented by: Admin: 07/21/18 13:03 Dose: 10 ml Documented by: Admin: 07/21/18 05:34 Dose: 10 ml Documented by: Admin: 07/20/18 21:52 Dose: 10 ml Documented by: Admin: 07/20/18 12:42 Dose: Not Given Documented by: [email or web address] Non-Admin Reason: Continuous IV Admin: 07/20/18 05:49 Dose: 10 ml Documented by: Admin: 07/19/18 21:48 Dose: 10 ml Documented by: Admin: 07/19/18 21:46 Dose: Not Given Documented by: DAYSI Non-Admin Reason: Continuous IV Admin: 07/19/18 14:44 Dose: 10 ml Documented by: Admin: 07/19/18 06:55 Dose: Not Given Documented by: SHAHRZAD Non-Admin Reason: Bag Still Infusing Admin: 07/18/18 21:02 Dose: Not Given Documented by: DARIUS Non-Admin Reason: Bag Still Infusing Assessment and Plan - Narrative A/P Narrative: A: 1. Deep post-surgical infection of right ankle tissues and tibia with hardware involvement,Hx of ORIF approximately 7 weeks ago: current wound has concerns for some residual infection - POD #4, s/p I & D and removal of 2 screws, with findings of "necrotic tendon and soft tissue with exposed screw heads and nonunion of the medial fracture" - operative Cx growing Enterobacter cloacae (sens to FQ, Cefepime) and Proteus mirabilis (lucero sens). 2nd gen and 3rd gen cephalosporins not to be used for Enterobacter due to concerns for chromosomal derepression of AmpC beta- lactamases 2. No sepsis: q-SOFA score 0 Recommendations: - Agree with plan for further debridement of the right ankle surgical wound tomorrow am. Send operative Cx for GS and C/S - Continue IV Cefepime 2 gm q8 hrs for now as there is still some residual infection - Once patient no longer requires further debridement and is ready for discharge, will switch her to PO Ciprofloxacin 750 mg bid for 4-6 weeks with clyde henry-up in ID clinic will follow Velasquez Winter M.D. Infectious diseases
--- NOTE | 2018-07-23 16:36 | Internal Med Progress Note ---
Medical - PN: Subj Patient information: Note initiated : 07/23/18 at 4:34 pm Service Date, if different from initiated Date: [] Patient: Yanni Topete a 67 y/o F admitted on 07/18/18 for Rt Ankle Wound. Chief Complaint: [] Interval history: Ms. Topete is a 67 year old F with history of bipolar disorder, chronic kidney disease presents to the hospital today for evaluation of her right lower extremity wound. The patient had history of fall in May, at which time she twisted her ankle and developed a complex fracture of the right ankle. She was operated by Dr. Velasquez in May and underwent an open reduction and internal fixation of the fracture. The patient was discharged subsequently. The patient apparently was managing her right lower extremity wound and blister however the patient's wound got progressively worse. There was some pussy discharge and she was seen in the wound care clinic today. In the wound care clinic on speaking with the wound care physician there was pus, and the wound l ooked infected. The patient was therefore sent to the emergency room for further evaluation. In the emergency room the patient is afebrile, hemodynamically stable, labs are stable kidney function is at baseline at around 1.3 -1.4. Patient has minimal pain on the right lower extremity with movement otherwise no other acute complaints or concerns. The wound care physician is the primary provider managing this patient, patient to be taken to the OR for cleanup and debridement by Dr. Velasquez tomorrow morning. Hospitalist has been consulted to help manage the logistics of inpatient stay. Wound care physician has been consulted by the wound care provider. 07/19 Pt seen examined, no acute issues reported labs stable awaitin 07/20 Somewhat poor sleep but otherwise no complaints. Sitting in bed comfortably eating breakfast. No new pains or complaints. Had I&D and removal of hardware yesterday. 07/21 Okay. No overnight events. Had BMs last night after laxatives given. Boot dressings in place on the right ankle. No new complaints 07/22 No overnight events. Feeling better. No new complaints. Seen by wound care this morning, wound appears to need further debridement. 07/23-patient doing better. Due for surgical debridement in 24 hours. No overnight fever chills. On antibiotic coverage as per ID specialist. Ongoing wound care by Dr. Harry. No concerns per staff - Constitutional Vitals: Vital Signs Temp Pulse Resp BP Pulse Ox 97.5 F 94 H 16 111/78 96 07/23/18 15:45 07/23/18 15:45 07/23/18 15:45 07/23/18 15:45 07/23/18 15:45 Period Temp Pulse Resp BP Sys/Hoyt Pulse Ox Last 24 Hr 97.5 F-99.2 F 80-94 16-18 101-123/65-79 90-96 Intake and Output 07/23/18 07/23/18 07/23/18 05:59 13:59 21:59 Intake Total 480 550 Output Total 1575 500 Balance -1575 -20 550 Intake & Output: Intake & Output 07/23/18 07/23/18 07/23/18 05:59 13:59 21:59 Intake Total 480 550 Output Total 1575 500 Balance -1575 -20 550 Intake: Oral 480 550 Output: Void Amount 1575 Urine/Stool Mix 500 Other: Meal Breakfast Percent of Meal Consumed 100% Feeding Ability Independent Urine Appearance Clear Clear Urine Color Pale Pale Urine Odor Normal Normal Stool Size Smear Stool Color Brown # Voids 1 1 General appearance: no acute distress Exam: Alert oriented nonlabored breathing No anxiety No lymphedema Medical - PN: Obj Da - Labs CBC & Chem 7: 07/20/18 04:15 07/20/18 04:15 Meds: Medications Hydrocodone Bitart/Acetaminophen ([place] 7.5/325mg) 1 - 2 tab PO Q4HP PRN PRN Reason: Pain Last Admin: 07/23/18 15:11 Dose: 1 tab Documented by: Cefepime HCl (Maxipime) 2 gm IV Q8H [facility]; Protocol Last Admin: 07/23/18 14:39 Dose: 2 gm Documented by: Clonazepam (Klonopin) 1 mg PO TID [facility] Last Admin: 07/23/18 14:38 Dose: 1 mg Documented by: Docusate Sodium (Colace) 100 mg PO BID PRN PRN Reason: Constipation Last Admin: 07/20/18 09:24 Dose: 100 mg Documented by: Famotidine (Pepcid) 20 mg PO BID [facility] Last Admin: 07/23/18 09:47 Dose: 20 mg Documented by: Heparin Sodium (Porcine) (Heparin) 5,000 unit SQ Q12 [facility] Last Admin: 07/23/18 09:46 Dose: 5,000 unit Documented by: Gentamicin Sulfate 40 mg/Clindamycin Phosphate 300 mg/Bacitracin 25,000 unit/ Sodium Chloride 1,003 mls @ 0 mls/hr IRR ONCE [facility] Stop: 07/24/18 12:00 Gentamicin Sulfate 40 mg/Clindamycin Phosphate 300 mg/Bacitracin 25,000 unit/ Sodium Chloride 503 mls @ 0 mls/hr IRR TID [facility] Stop: 07/23/18 21:01 Last Admin: 07/23/18 15:53 Dose: 1 mls/hr Documented by: Lactobacillus Rhamnosus (Culturelle) 1 cap PO DAILY [facility] Last Admin: 07/23/18 09:49 Dose: 1 cap Documented by: Levothyroxine Sodium (Synthroid) 75 mcg PO QAMAC [facility] Last Admin: 07/23/18 07:48 Dose: 75 mcg Documented by: Naloxone HCl (Narcan) 0.1 mg IV Q2MIN PRN PRN Reason: Opiate Reversal Oxcarbazepine [ Trileptal] 600 Mg Tab 300 mg PO BID [facility] Last Admin: 07/23/18 09:45 Dose: 300 mg Documented by: Olanzapine (Zyprexa) 20 mg PO [facility] Last Admin: 07/22/18 22:39 Dose: 20 mg Documented by: Ondansetron HCl (Zofran) 4 mg IV Q6HP PRN PRN Reason: Nausea And Vomiting Polyethylene Glycol (Miralax) 17 gm PO DAILY PRN PRN Reason: Constipation Last Admin: 07/20/18 09:22 Dose: 17 gm Documented by: Quetiapine Fumarate (Seroquel) 300 mg PO [facility] Last Admin: 07/22/18 22:39 Dose: 300 mg Documented by: Quetiapine Fumarate (Seroquel) 50 mg PO BID [facility] Last Admin: 07/23/18 09:47 Dose: 50 mg Documented by: Simvastatin (Zocor) 10 mg PO [facility] Last Admin: 07/22/18 22:39 Dose: 10 mg Documented by: Sodium Chloride (Saline Flush) 10 ml IV Q8 [facility] Last Admin: 07/23/18 15:12 Dose: 10 ml Documented by: Medical - PN: A/P - Time Spent With Patient Total time spent is greater than 50% in coordination of care (as documented) at patient's floor/unit and/or counseling patient: 25 - 35 minutes (1) Infection of joint of ankle Status: Acute Assessment and plan: * Postoperative osteomyelitis right ankle status post IND/hardware removal 07/19 managed by wound care/orthopedics. * Right lower extremity infected ulcer-continue wound management per Dr. Mcdonald. Antibiotic management per infectious disease specialist. On cefepime * Chronic kidney disease stage III at baseline * History of bipolar disorder continue on olanzapine/Seroquel * Hypothyroidism on thyroxine * Hyperlipidemia on statin * DVT prophylaxis on heparin Plan * Continue antibiotics/wound care * PT OT/nutrition support * Pre-existing medical condition management as above Current Visit: Yes Medical - PN: Qual - VTE Deep Vein Thrombosis/Pulmonary Embolism Present on Admission: No
--- NOTE | 2018-07-23 17:08 | XRay Report ---
CLINICAL INFORMATION: post hardware removal COMPARISON: Preoperative films 07/18/2018. FINDINGS: Two screws have been removed which previously transfixed a mildly comminuted, transverse medial malleolar fracture. Fracture is not unified. Medial malleolar fragment is displaced 5 mm laterally. Mild resorption about the fracture line without healing callus. The small focal erosions along the medial cortex of the distal tibial metaphysis seen as before. There is now a large soft tissue defect overlying this region which likely represents a surgical debridement site. Old lateral malleolar fracture transfixed by plate and screws is unified in anatomic alignment. There is talocalcaneal fusion. Scattered regions of rarefied trabecula within the talar neck and posterior calcaneus are unchanged and more likely related to atypical osteoporosis rather than infection. IMPRESSION: 1. Interim removal of cancellous screws previously transfixing the comminuted, mildly displaced medial malleolar fracture. No evidence of osseous union. Two small cortical defects in the medial distal tibia again noted and are more likely related to prior surgical trauma, rather than osteomyelitis. Consider repeat MRI if there is clinical concern for osteomyelitis. 2. Talocalcaneal fusion 3. Scattered regions of rarefied trabeculae of the talar neck and posterior calcaneus which have increased. These more likely represent atypical osteoporosis rather than osteomyelitis. Interpreted and Authenticated by: Dung Sanchez 07/23/18
--- NOTE | 2018-07-23 18:15 | XRay Report ---
CLINICAL INFORMATION: post hardware removal COMPARISON: None. FINDINGS: Moderate pes planus noted. There are hammertoe deformities second through fifth digits. Mild degenerative changes seen secondary through fifth interphalangeal, first MTP and MTT joints. There prominent dorsal spurring in the navicular cuneiform and MTT joints. No specific evidence of osteomyelitis IMPRESSION: No specific evidence of osteomyelitis within the foot proper. Chronic findings that as described Interpreted and Authenticated by: Dung Sanchez 07/23/18
[2018-07-23] MEDS: OLANZapine 5 MG TABLET PO SCH (19:21)
[2018-07-23] MEDS: SIMVASTATIN 10 MG TABLET PO SCH (19:21)
[2018-07-23] MEDS: QUEtiapine 100 MG TABLET PO SCH (19:21)
[2018-07-24] MEDS: CEFEPIME 2 GM VIAL IV SCH ×3 (05:51→21:53)
[2018-07-24] MEDS: 0.9 % SODIUM CHLORIDE 10 ML SYRINGE IV SCH ×5 (05:51→21:52)
[2018-07-24 06:32] LABS: Basophils # (Auto) 0 K/mcL (0.0-0.3); Basophils % (Auto) 0.7 % (0.0-2.0); Eosinophils # (Auto) 0.4 K/mcL (0.0-0.7); Eosinophils % (Auto) 7.5 % (0.0-7.0); Granulocytes % (Auto) 63.1 % (38.0-78.0); Lymphocytes % (Auto) 17.7 % (15.5-49.0); Mean Cell Volume 92.2 fL (80.0-100.0); Mean Corpuscular HGB Conc 31.9 g/dL (31.0-36.0); Monocytes # (Auto) 0.6 K/mcL (0.1-0.9); Platelet Count 157 K/mcL (140-440); RBC 4.12 M/mcL (4.00-5.20)
[2018-07-24] MEDS: LEVOTHYROXINE 75 MCG TABLET PO SCH (06:34)
[2018-07-24] MEDS ORDERED: GENTAMICIN SULFATE IRR SCH (07:00)
[2018-07-24] MEDS ORDERED: BACITRACIN IRR SCH (07:00)
[2018-07-24] MEDS ORDERED: [UNRECOGNIZED DRUG - OTHER] IRR SCH (07:00)
[2018-07-24] MEDS ORDERED: CLINDAMYCIN IRR SCH (07:00)
[2018-07-24 07:17] LABS: ALT/SGPT 19 U/l (0-40); Albumin 3.3 gm/dL (3.2-5.2); Albumin/Globulin Ratio 0.9 (1.0-2.3); Alkaline Phosphatase 169 U/L (39-117); Bilirubin,Direct < 0.2 mg/dL (0.0-0.3); Blood Urea Nitrogen 29 mg/dl (8-23); Gamma Glutamyl Transpeptidase 30 U/L (5-36); Uric Acid 5.4 mg/dL (2.5-8.0)
[2018-07-24] MEDS ORDERED: LIDOCAINE 1% SQ ONE (07:23)
[2018-07-24] MEDS ORDERED: BUPIVACAINE 0.5% SQ ONE (07:23)
[2018-07-24] MEDS ORDERED: DEXAMETHASONE 10 MG/ML VIAL IV ONE (07:35)
[2018-07-24] MEDS ORDERED: LIDOCAINE HCL/PF 100 MG/5 ML SYRINGE IV ONE (07:35)
[2018-07-24] MEDS ORDERED: PROPOFOL 200 MG/20 ML VIAL IV ONE (07:35)
[2018-07-24] MEDS ORDERED: ONDANSETRON 4 MG/2 ML VIAL IV ONE (07:35)
[2018-07-24] MEDS ORDERED: MIDAZOLAM 2 MG/2 ML VIAL IV ONE (07:35)
[2018-07-24] MEDS ORDERED: MINERAL OIL 10 ML VIAL MC ONE (08:12)
[2018-07-24] MEDS ORDERED: PROMETHAZINE 25 MG/ML VIAL IV PRN (08:32)
[2018-07-24] MEDS ORDERED: IPRATROPIUM/ALBUTEROL 3 ML AMPUL.NEB NEB PRN (08:32)
[2018-07-24] MEDS ORDERED: ONDANSETRON 4 MG/2 ML VIAL IV PRN ×2 (08:32→10:14)
[2018-07-24] MEDS ORDERED: METHOCARBAMOL 1,000 MG/10 ML VIAL IV PRN (08:32)
[2018-07-24] MEDS ORDERED: ATROPINE SULFATE 0.4 MG/ML VIAL IV PRN (08:32)
[2018-07-24] MEDS ORDERED: diphenhydrAMINE 50 MG/ML VIAL IV PRN (08:32)
[2018-07-24] MEDS ORDERED: FLUMAZENIL 0.1 MG/ML ML IV PRN (08:32)
[2018-07-24] MEDS ORDERED: ePHEDrine 50 MG/ML AMPUL IV PRN (08:32)
[2018-07-24] MEDS ORDERED: fentaNYL 100 MCG/2 ML VIAL IV PRN (08:32)
[2018-07-24] MEDS ORDERED: METOPROLOL TARTRATE 5 MG/5 ML VIAL IV PRN (08:32)
[2018-07-24] MEDS ORDERED: MEPERIDINE 25 MG/ML SYRINGE IV PRN (08:32)
[2018-07-24] MEDS ORDERED: NALOXONE HCL 0.4 MG/ML VIAL IV PRN ×2 (08:32→10:14)
[2018-07-24] MEDS ORDERED: LACTATED RINGERS 1,000 ML IV SCH (08:45)
--- NOTE | 2018-07-24 09:28 | General Surgery Procedure Note ---
Date of procedure: Note initiated : 07/24/18 at 9:25 am Service Date, if different from initiated Date: [] Pre-op diagnosis: Open infected wound Rt. Lower medial leg. Post-op diagnosis: same Procedure: US guided Surgical debridement. Versajet lavage. Split thickness skin graft . DONOR site Right anterior mid thigh. Findings: Wound Dimension 4.5 x 3 x 1 CM. Skin graft Donor site 5 x 4 CM. Grafts/Implants: Split thickness skin graft of an inch thick Anesthesia: GLMA Surgeon: Chris Mcdonald Estimated blood loss: 10 Pathology: none sent Description of procedure: Surgical Debridement. Antibiotic saline Versajet lavage. Followed by [facility] Condition: stable Disposition: PACU (Procedure well tolerated.)
[2018-07-24] MEDS ORDERED: POLYETHYLENE GLYCOL 3350 17 GM PACKET PO PRN (10:14)
[2018-07-24] MEDS ORDERED: DOCUSATE SODIUM 100 MG CAPSULE PO PRN (10:14)
[2018-07-24] MEDS: LACTOBACILLUS 1 CAPSULE PO SCH (10:22)
[2018-07-24] MEDS: QUEtiapine 25 MG TABLET PO SCH ×2 (10:23→21:46)
[2018-07-24] MEDS: HEPARIN 5,000 UNIT/ML VIAL SQ SCH ×2 (10:23→21:46)
[2018-07-24] MEDS: Oxcarbazepine [Trileptal] 600 mg Tab PO SCH ×2 (10:23→21:47)
[2018-07-24] MEDS: FAMOTIDINE 20 MG TABLET PO SCH ×2 (10:23→21:45)
[2018-07-24] MEDS: clonazePAM 1 MG TABLET PO SCH ×3 (10:23→21:45)
--- NOTE | 2018-07-24 10:49 | Operative Note ---
DATE OF OPERATION: 07/24/2018 PREOPERATIVE DIAGNOSES: 1. Open infected wound right lower medial leg, past history of ORIF for a compound fracture 7 weeks ago. 2. Status post excision of necrotic tissue and initial wound debridement 5 days ago. POSTOPERATIVE DIAGNOSES: 1. Open infected wound right lower medial leg, past history of ORIF for a compound fracture 7 weeks ago. 2. Status post excision of necrotic tissue and initial wound debridement 5 days ago. OPERATION: 1. Ultrasound-guided REPEAT surgical debridement. 2. Antibiotic Versajet lavage of the wound. 3. Split thickness skin graft. Donor site right anterior thigh. FINDINGS: Wound dimensions 4.5 x 3 x 1 cm. Skin graft harvested from anterior mid-thigh 5 x 4 cm. PROCEDURE NOTE: After obtaining informed consent, patient was taken to the operating room. She was anesthetized uneventfully in supine position. A timeout was called. Preoperative photograph was taken. The right lower extremity was widely cleaned, prepped and draped from the toes up to the groin. A timeout was called before commencing the procedure. Local anesthetic, 0.25% Marcaine with epinephrine was injected widely around the wound site using a 27-gauge needle. The donor site area was similarly treated. We now proceeded to carry out surgical debridement using Versajet instrument. Tangential serial excision of the wound was carried out from the margins towards the center. Undermining was unroofed and the stalled wound edges were sharply excised. There was bright red capillary oozing and bleeding noted from the wound bed and the margins. It was controlled with pressure and elevation. We harvested a split thickness skin graft using Brown dermatome. 1/20 inch. 5 x 4 cm segment of skin was harvested. It was meshed on the back table 1:1.5 ratio. The wound bed was prepared with anhydrous EpiFix powder. The meshed skin graft was laid on the wound and secured along the wound edges with continuous running interlocking sutures of 3-0 Vicryl. The recipient site wound was dressed with Xeroform gauze, 4 x 4 gauze bolster and reinforced again with 4 x 4 gauze, Kerlix bandage, Coban and Johnnie bandage, respectively. The donor site was also similarly covered and dressed. Operation was well tolerated. Blood loss was about 10 mL Count of swabs, instruments and needles was reported to be correct. VD:federica Job ID: [id number] Doc ID: [id number] Chris TAYLOR
[2018-07-24] MEDS: HYDROCODONE/APAP 7.5/325MG TABLET PO PRN ×2 (11:03→23:13)
--- NOTE | 2018-07-24 11:22 | Internal Med Progress Note ---
Medical - PN: Subj Patient information: Note initiated : 07/24/18 at 11:19 am Service Date, if different from initiated Date: [] Patient: Yanni Topete a 67 y/o F admitted on 07/18/18 for Rt Ankle Wound. Chief Complaint: [] Interval history: Ms. Topete is a 67 year old F with history of bipolar disorder, chronic kidney disease presents to the hospital today for evaluation of her right lower extremity wound. The patient had history of fall in May, at which time she twisted her ankle and developed a complex fracture of the right ankle. She was operated by Dr. Velasquez in May and underwent an open reduction and internal fixation of the fracture. The patient was discharged subsequently. The patient apparently was managing her right lower extremity wound and blister however the patient's wound got progressively worse. There was some pussy discharge and she was seen in the wound care clinic today. In the wound care clinic on speaking with the wound care physician there was pus, and the wound looked infected. The patient was therefore sent to the emergency room for further evaluation. In the emergency room the patient is afebrile, hemodynamically stable, labs are stable kidney function is at baseline at around 1.3 -1.4. Patient has minimal pain on the right lower extremity with movement otherwise no other acute complaints or concerns. The wound care physician is the primary provider managing this patient, patient to be taken to the OR for cleanup and debridement by Dr. Velasquez tomorrow morning. Hospitalist has been consulted to help manage the logistics of inpatient stay. Wound care physician has been consulted by the wound care provider. 07/19 Pt seen examined, no acute issues reported labs stable awaitin 07/20 Somewhat poor sleep but otherwise no complaints. Sitting in bed comfortably eating breakfast. No new pains or complaints. Had I&D and removal of hardware yesterday. 07/21 Okay. No overnight events. Had BMs last night after laxatives given. Boot dressings in place on the right ankle. No new complaints 07/22 No overnight events. Feeling better. No new complaints. Seen by wound care this morning, wound appears to need further debridement. 07/23-patient doing better. Due for surgical debridement in 24 hours. No overnight fever chills. On antibiotic coverage as per ID specialist. Ongoing wound care by Dr. Mcdonald. No concerns per staff 07/24- patient status post surgical debridement/thickness skin graft placement by Dr. mahmood today. Doing well postoperatively. Ongoing nutritional support/antibiotic coverage as per ID. No overnight fever chills or concerns per staff. Intermittently confused. Complains of postoperative pain - Constitutional Vitals: Vital Signs Temp Pulse Resp BP Pulse Ox 97.4 F 84 16 148/93 89 L 07/24/18 08:55 07/24/18 10:00 07/24/18 10:00 07/24/18 09:02 07/24/18 09:04 Period Temp Pulse Resp BP Sys/Hoyt Pulse Ox Last 24 Hr 97.4 F-98.8 F 80-94 12-18 104-148/59-95 89-100 Intake and Output 07/23/18 07/24/18 07/24/18 21:59 05:59 13:59 Intake Total 790 240 700 Output Total 475 275 400 Balance 315 -35 300 Weight 217 lb 8 oz Intake & Output: Intake & Output 07/23/18 07/24/18 07/24/18 21:59 05:59 13:59 Intake Total 790 240 700 Output Total 475 275 400 Balance 315 -35 300 Weight 217 lb 8 oz Intake: Oral 790 240 IV - Manual Only 700 Output: Void Amount 475 275 400 Other: Meal Dinner Percent of Meal Consumed 100% Urine Appearance Clear Clear Urine Color Pale Pale Urine Odor Normal Normal General appearance: no acute distress Exam: Alert but intermittently confused Right lower extremity postoperative dressing Nonlabored breathing Nondistended abdomen Medical - PN: Obj Da - Labs CBC & Chem 7: 07/24/18 04:10 07/24/18 04:10 Labs: Abnormal Lab Results 07/24/18 07/24/18 04:10 04:10 RDW 15.0 H Eos % (Auto) 7.5 H Lymph # (Auto) 1.0 L Carbon Dioxide 21 L BUN 29 H Creatinine 1.4 H Glucose 132 H Alkaline Phosphatase 169 H Globulin 3.8 H Albumin/Globulin Ratio 0.9 L Triglycerides 202 H Meds: Medications Hydrocodone Bitart/Acetaminophen ([place] 7.5/325mg) 1 - 2 tab PO Q4HP PRN PRN Reason: Pain Last Admin: 07/24/18 11:03 Dose: 1 tab Documented by: Cefepime HCl (Maxipime) 2 gm IV Q8H STACIE; Protocol Clonazepam (Klonopin) 1 mg PO TID [facility] Docusate Sodium (Colace) 100 mg PO BID PRN PRN Reason: Constipation Famotidine (Pepcid) 20 mg PO BID [facility] Heparin Sodium (Porcine) (Heparin) 5,000 unit SQ Q12 [facility] Lactobacillus Rhamnosus (Culturelle) 1 cap PO DAILY [facility] Levothyroxine Sodium (Synthroid) 75 mcg PO QAMAC [facility] Naloxone HCl (Narcan) 0.1 mg IV Q2MIN PRN PRN Reason: Opiate Reversal Oxcarbazepine [ Trileptal] 600 Mg Tab 300 mg PO BID [facility] Olanzapine (Zyprexa) 20 mg PO HS [facility] Ondansetron HCl (Zofran) 4 mg IV Q6HP PRN PRN Reason: Nausea And Vomiting Polyethylene Glycol (Miralax) 17 gm PO DAILY PRN PRN Reason: Constipation Quetiapine Fumarate (Seroquel) 300 mg PO HS [facility] Quetiapine Fumarate (Seroquel) 50 mg PO BID [facility] Simvastatin (Zocor) 10 mg PO HS [facility] Sodium Chloride (Saline Flush) 10 ml IV Q8 [facility] Medical - PN: A/P - Time Spent With Patient Total time spent is greater than 50% in coordination of care (as documented) at patient's floor/unit and/or counseling patient: 25 - 35 minutes (1) Infection of joint of ankle Status: Acute Assessment and plan: * Postoperative osteomyelitis right ankle status post I&D/hardware removal 07/19 managed by wound care/orthopedics. * Right lower extremity infected ulcer-patient is status post skin graft/debridement by client specialist is Dr. Mcdonald. On cefepime per infectious disease specialist. * Chronic kidney disease stage III at baseline. Creatinine 1.4 * History of bipolar disorder continue on olanzapine/Seroquel * Hypothyroidism on thyroxine * Hyperlipidemia on statin * DVT prophylaxis on heparin Plan * Continue antibiotics/postoperative wound care per Dr. Mcdonald * PT OT/nutrition support * Pre-existing medical condition management as above Current Visit: Yes Medical - PN: Qual - VTE Deep Vein Thrombosis/Pulmonary Embolism Present on Admission: No
--- NOTE | 2018-07-24 14:24 | Infectious Disease Prog Note ---
Subjective Patient information: Note initiated : 07/24/18 at 2:08 pm Service Date, if different from initiated Date: [] Patient: Yanni Topete 67 y/o F admitted on 07/18/18 for Rt Ankle Wound. Chief Complaint: [] Principal diagnosis: open ankle wound s/p I&D Interval history: Patient doing well. Sitting in the bed. Denies any fever, chills, nausea, vomiting, diarrhea. Underwent operative debridement of the right ankle surgical wound today, uneventful. Patient reports being forgetful in the hospital. Objective Objective Narrative: ao x 3, in nad no thrush chest cta s1 s2 normal bs ++ ntttd the right ankle covered in surgical dressing - Vital Signs Vital signs: Vital Signs Temp Pulse Resp BP BP Pulse Ox 07/24/18 11:18 87 122/77 93 07/24/18 11:03 83 110/73 95 07/24/18 10:33 91 H 129/87 95 07/24/18 10:16 78 137/87 97 07/24/18 10:03 88 134/58 95 07/24/18 10:00 84 16 07/24/18 09:04 84 12 89 L 07/24/18 09:02 85 14 148/93 91 07/24/18 08:55 36.3 C 87 18 106/59 95 07/24/18 08:45 36.8 C 84 16 124/95 96 07/24/18 08:40 84 16 132/60 100 07/24/18 08:35 82 16 137/90 100 07/24/18 08:30 36.7 C 90 16 136/93 136/93 98 07/24/18 04:12 36.9 C 84 14 112/70 93 07/23/18 23:22 36.7 C 80 14 128/78 91 07/23/18 19:07 16 07/23/18 18:33 37.1 C 85 12 113/75 94 07/23/18 15:45 36.4 C 94 H 16 111/78 96 Intake and Output 07/24/18 07/24/18 07/24/18 05:59 13:59 21:59 Intake Total 240 700 Output Total 275 925 Balance -35 -225 Intake: Oral 240 IV - Manual Only 700 Output: Void Amount 275 925 Other: Urine Appearance Clear Urine Color Pale Urine Odor Normal Intake & Output: Intake & Output 07/24/18 07/24/18 07/24/18 05:59 13:59 21:59 Intake Total 240 700 Output Total 275 925 Balance -35 -225 Intake: Oral 240 IV - Manual Only 700 Output: Void Amount 275 925 Other: Urine Appearance Clear Urine Color Pale Urine Odor Normal - Lab 07/24/18 04:10 07/24/18 04:10 Most recent lab results Calcium 9.3 mg/dl (8.6-10.4) 07/24/18 04:10 Phosphorus 3.3 mg/dL (2.7-4.5) 07/24/18 04:10 Magnesium 1.9 mg/dL (1.6-2.5) 07/24/18 04:10 Microbiology 07/19/18 11:09 Ankle - Right Gram Stain - Final 07/19/18 11:09 Ankle - Right Gram Stain - Final 07/19/18 11:09 Ankle - Right Anaerobic Culture - Final 07/19/18 11:09 Ankle - Right Gram Stain - Final 07/19/18 11:09 Ankle - Right Wound Culture - Final Enterobacter cloacae Proteus mirabilis 07/19/18 11:09 Ankle - Right Gram Stain - Final 07/19/18 11:09 Ankle - Right Anaerobic Culture - Final 07/19/18 11:09 Ankle - Right Gram Stain - Final 07/19/18 11:09 Ankle - Right Wound Culture - Preliminary Proteus mirabilis Enterobacter cloacae Gram negative bacillus 07/18/18 09:51 Blood Blood Culture - Final 07/18/18 10:00 Blood Blood Culture - Final 07/19/18 20:15 Nose MRSA (PCR) - Final 07/19/18 11:09 Ankle - Right Gram Stain - Final Medications Active Medications: Hydrocodone Bitart/Acetaminophen ([place] 7.5/325mg) 1 - 2 tab PO Q4HP PRN PRN Reason: Pain Last Admin: 07/24/18 11:03 Dose: 1 tab Documented by: SHAHRZAD Cefepime HCl (Maxipime) 2 gm IV Q8H STACIE; Protocol Clonazepam (Klonopin) 1 mg PO TID [facility] Docusate Sodium (Colace) 100 mg PO BID PRN PRN Reason: Constipation Famotidine (Pepcid) 20 mg PO BID [facility] Heparin Sodium (Porcine) (Heparin) 5,000 unit SQ Q12 [facility] Lactobacillus Rhamnosus (Culturelle) 1 cap PO DAILY [facility] Levothyroxine Sodium (Synthroid) 75 mcg PO QAMAC [facility] Naloxone HCl (Narcan) 0.1 mg IV Q2MIN PRN PRN Reason: Opiate Reversal Oxcarbazepine [ Trileptal] 600 Mg Tab 300 mg PO BID [facility] Olanzapine (Zyprexa) 20 mg PO HS [facility] Ondansetron HCl (Zofran) 4 mg IV Q6HP PRN PRN Reason: Nausea And Vomiting Polyethylene Glycol (Miralax) 17 gm PO DAILY PRN PRN Reason: Constipation Quetiapine Fumarate (Seroquel) 300 mg PO HS [facility] Quetiapine Fumarate (Seroquel) 50 mg PO BID [facility] Simvastatin (Zocor) 10 mg PO HS [facility] Sodium Chloride (Saline Flush) 10 ml IV Q8 [facility] Assessment and Plan - Narrative A/P Narrative: A: 1. Deep post-surgical infection of right ankle tissues and tibia with hardware involvement,Hx of ORIF approximately 7 weeks ago: current wound has concerns for some residual infection - POD #5, s/p I & D and removal of 2 screws, with findings of "necrotic tendon and soft tissue with exposed screw heads and nonunion of the medial fracture" - POD #0, status post surgical debridement - operative Cx growing Enterobacter cloacae (sens to FQ, Cefepime) and Proteus mirabilis (lucero sens). 2nd gen and 3rd gen cephalosporins not to be used for Enterobacter due to concerns for chromosomal derepression of AmpC beta- lactamases 2. No sepsis: q-SOFA score 0 Recommendations: - Continue IV Cefepime 2 gm q8 hrs - recommend PICC line placement - Pt has a drug interaction between Seroquel and Ciprofloxacin. I spoke with Viki Lovett NP (mental health provider) who will plan to taper her Seroquel after discharge. The discharging nurse to inform Viki Lovett so that pt could have a mental health follow up appt. - I will follow the patient in ID clinic in 4 weeks and switch to PO antibiotics based on clinical response and if she has been off Seroquel. - Date and time of follow up appt as follows: 08/23/18 at 10 am Follow up labs: ESR, CRP every other week CBC, BMP once weekly will follow Velasquez Winter M.D. Infectious diseases
[2018-07-24] MEDS ORDERED: 0.9 % SODIUM CHLORIDE 10 ML SYRINGE IV PRN (15:21)
--- NOTE | 2018-07-24 18:37 | XRay Report ---
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 The cardiomediastinal silhouette and pulmonary vessels are normal. Moderate left basilar infiltrate or atelectasis as developed which obscures left diaphragm. 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 Consider withdrawal line 6 cm and readvanced. Moderate left basilar infiltrate - new Interpreted and Authenticated by: Dung Sanchez 07/24/18
[2018-07-24] MEDS: OLANZapine 5 MG TABLET PO SCH (21:44)
[2018-07-24] MEDS: QUEtiapine 100 MG TABLET PO SCH (21:45)
[2018-07-24] MEDS: SIMVASTATIN 10 MG TABLET PO SCH (21:46)
[2018-07-25] MEDS: HYDROCODONE/APAP 7.5/325MG TABLET PO PRN (03:13)
[2018-07-25] MEDS ORDERED: CEFEPIME 1 GM VIAL ONE (03:52)
[2018-07-25] MEDS: CEFEPIME 2 GM VIAL IV SCH ×3 (05:01→23:15)
[2018-07-25] MEDS: 0.9 % SODIUM CHLORIDE 10 ML SYRINGE IV SCH ×3 (05:02→15:37)
[2018-07-25] MEDS: LEVOTHYROXINE 75 MCG TABLET PO SCH (06:45)
[2018-07-25] MEDS: LACTOBACILLUS 1 CAPSULE PO SCH (10:01)
[2018-07-25] MEDS: HEPARIN 5,000 UNIT/ML VIAL SQ SCH ×2 (10:01→23:09)
[2018-07-25] MEDS: Oxcarbazepine [Trileptal] 600 mg Tab PO SCH ×2 (10:01→23:13)
[2018-07-25] MEDS: clonazePAM 1 MG TABLET PO SCH ×3 (10:02→23:09)
[2018-07-25] MEDS: FAMOTIDINE 20 MG TABLET PO SCH ×2 (10:02→23:06)
[2018-07-25] MEDS: QUEtiapine 25 MG TABLET PO SCH ×2 (10:14→23:07)
[2018-07-25] MEDS ORDERED: DEXTROSE 50% 50 ML VIAL IV ONE (13:13)
--- NOTE | 2018-07-25 16:29 | Infectious Disease Prog Note ---
Subjective Patient information: Note initiated : 07/25/18 at 4:18 pm Service Date, if different from initiated Date: [] Patient: Yanni Topete 67 y/o F admitted on 07/18/18 for Rt Ankle Wound. Chief Complaint: [] Principal diagnosis: open ankle wound s/p I&D Interval history: pt reports pain in her right leg which went away after removing the splint. denied any fever, chills, n/v, diarrhea. She appears confused. Objective Objective Narrative: alert, awake, oriented x person only. Thinks President is [place] and she is at [facility] no thrush Rt foot wrapped in dressing which will remain for few days as pt had a skin graft placed yesterday. Pictures reviewed with Dr Mcdonald at bedside - Vital Signs Vital signs: Vital Signs Temp Pulse Resp BP Pulse Ox 07/25/18 15:55 36.9 C 89 22 102/58 91 07/25/18 12:00 36.6 C 96 H 106/71 91 07/25/18 06:46 36.1 C L 94 H 18 101/70 90 07/25/18 04:30 92 07/25/18 02:57 36.6 C 89 16 118/87 96 07/25/18 01:57 92 07/25/18 01:28 90 07/24/18 23:07 37.1 C 90 16 127/80 90 07/24/18 19:23 36.9 C 98 H 16 125/82 92 Intake and Output 07/25/18 07/25/18 07/25/18 05:59 13:59 21:59 Intake Total 1100 120 Output Total 500 Balance 600 120 Intake: Oral 1100 120 Output: Void Amount 500 Other: Meal Breakfast Percent of Meal Consumed 100% Feeding Ability Independent Urine Appearance Clear Urine Color Bright Yellow Weight 96.162 kg Patient Weight 07/26/18 05:59 Weight 96.162 kg Intake & Output: Intake & Output 07/25/18 07/25/18 07/25/18 05:59 13:59 21:59 Intake Total 1100 120 Output Total 500 Balance 600 120 Weight 96.162 kg Intake: Oral 1100 120 Output: Void Amount 500 Other: Meal Breakfast Percent of Meal Consumed 100% Feeding Ability Independent Urine Appearance Clear Urine Color Bright Yellow - Lab 07/24/18 04:10 07/24/18 04:10 Most recent lab results Calcium 9.3 mg/dl (8.6-10.4) 07/24/18 04:10 Phosphorus 3.3 mg/dL (2.7-4.5) 07/24/18 04:10 Magnesium 1.9 mg/dL (1.6-2.5) 07/24/18 04:10 Microbiology 07/19/18 11:09 Ankle - Right Gram Stain - Final 07/19/18 11:09 Ankle - Right Anaerobic Culture - Final 07/19/18 11:09 Ankle - Right Gram Stain - Final 07/19/18 11:09 Ankle - Right Wound Culture - Final Proteus mirabilis Enterobacter cloacae [place]o baumannii/haemolyticus 07/19/18 11:09 Ankle - Right Gram Stain - Final 07/19/18 11:09 Ankle - Right Gram Stain - Final 07/19/18 11:09 Ankle - Right Anaerobic Culture - Final 07/19/18 11:09 Ankle - Right Gram Stain - Final 07/19/18 11:09 Ankle - Right Wound Culture - Final Enterobacter cloacae Proteus mirabilis 07/18/18 09:51 Blood Blood Culture - Final 07/18/18 10:00 Blood Blood Culture - Final 07/19/18 20:15 Nose MRSA (PCR) - Final 07/19/18 11:09 Ankle - Right Gram Stain - Final Medications Active Medications: Hydrocodone Bitart/Acetaminophen ([place] 7.5/325mg) 1 - 2 tab PO Q4HP PRN PRN Reason: Pain Last Admin: 07/25/18 03:13 Dose: 1 tab Documented by: Admin: 07/24/18 23:13 Dose: 1 tab Documented by: Admin: 07/24/18 11:03 Dose: 1 tab Documented by: SHAHRZAD Cefepime HCl (Maxipime) 2 gm IV Q8H STACIE; Protocol Last Admin: 07/25/18 15:37 Dose: 2 gm Documented by: Admin: 07/25/18 05:01 Dose: 2 gm Documented by: Admin: 07/24/18 21:53 Dose: 2 gm Documented by: Admin: 07/24/18 14:36 Dose: 2 gm Documented by: SHAHRZAD Clonazepam (Klonopin) 1 mg PO TID [facility] Last Admin: 07/25/18 15:37 Dose: 1 mg Documented by: Admin: 07/25/18 10:02 Dose: 1 mg Documented by: Admin: 07/24/18 21:45 Dose: 1 mg Documented by: Admin: 07/24/18 14:36 Dose: 1 mg Documented by: SHAHRZAD Docusate Sodium (Colace) 100 mg PO BID PRN PRN Reason: Constipation Famotidine (Pepcid) 20 mg PO BID [facility] Last Admin: 07/25/18 10:02 Dose: 20 mg Documented by: Admin: 07/24/18 21:45 Dose: 20 mg Documented by: DAYSI Heparin Sodium (Porcine) (Heparin) 5,000 unit SQ Q12 [facility] Last Admin: 07/25/18 10:01 Dose: 5,000 unit Documented by: Admin: 07/24/18 21:46 Dose: 5,000 unit Documented by: DAYSI Heparin Sodium (Porcine) (Heparin Flush) 2 ml IV Q12 [facility] Last Admin: 07/25/18 10:03 Dose: 2 ml Documented by: Admin: 07/24/18 21:47 Dose: Not Given Documented by: DAYSI Non-Admin Reason: Done with insertion Admin: 07/24/18 18:55 Dose: 2 ml Documented by: [email or web address] Lactobacillus Rhamnosus (Culturelle) 1 cap PO DAILY [facility] Last Admin: 07/25/18 10:01 Dose: 1 cap Documented by: AMINTA Levothyroxine Sodium (Synthroid) 75 mcg PO QAMAC [facility] Last Admin: 07/25/18 06:45 Dose: 75 mcg Documented by: AMINTA Naloxone HCl (Narcan) 0.1 mg IV Q2MIN PRN PRN Reason: Opiate Reversal Oxcarbazepine [ Trileptal] 600 Mg Tab 300 mg PO BID [facility] Last Admin: 07/25/18 10:01 Dose: 300 mg Documented by: Admin: 07/24/18 21:47 Dose: 300 mg Documented by: DAYSI Olanzapine (Zyprexa) 20 mg PO HS [facility] Last Admin: 07/24/18 21:44 Dose: 20 mg Documented by: DAYSI Ondansetron HCl (Zofran) 4 mg IV Q6HP PRN PRN Reason: Nausea And Vomiting Polyethylene Glycol (Miralax) 17 gm PO DAILY PRN PRN Reason: Constipation Quetiapine Fumarate (Seroquel) 300 mg PO [facility] Last Admin: 07/24/18 21:45 Dose: 300 mg Documented by: DAYSI Quetiapine Fumarate (Seroquel) 50 mg PO BID [facility] Last Admin: 07/25/18 10:14 Dose: 50 mg Documented by: Admin: 07/24/18 21:46 Dose: 50 mg Documented by: [email or web address] Simvastatin (Zocor) 10 mg PO [facility] Last Admin: 07/24/18 21:46 Dose: 10 mg Documented by: DAYSI Sodium Chloride (Saline Flush) 10 ml IV Q8 [facility] Last Admin: 07/25/18 15:37 Dose: 10 ml Documented by: Admin: 07/25/18 05:02 Dose: 10 ml Documented by: Admin: 07/24/18 21:52 Dose: 10 ml Documented by: Admin: 07/24/18 21:47 Dose: 10 ml Documented by: Admin: 07/24/18 14:36 Dose: 10 ml Documented by: SHAHRZAD Sodium Chloride (Saline Flush) 10 ml IV UD PRN PRN Reason: FLUSH Sodium Chloride (Saline Flush) 10 ml IV Q12 [facility] Last Admin: 07/25/18 10:05 Dose: 10 ml Documented by: Admin: 07/24/18 21:52 Dose: 10 ml Documented by: DAYSI Assessment and Plan - Narrative A/P Narrative: A: 1. Deep post-surgical infection of right ankle tissues and tibia with hardware involvement,Hx of ORIF approximately 7 weeks ago: current wound has concerns for some residual infection - POD #6, s/p I & D and removal of 2 screws, with findings of "necrotic tendon and soft tissue with exposed screw heads and nonunion of the medial fracture" - POD #1, status post surgical debridement and skin graft placement - operative Cx growing: - Enterobacter cloacae (sens to FQ, Cefepime).2nd gen and 3rd gen cephalosporins not to be used for Enterobacter due to concerns for chromosomal derepression of AmpC beta-lactamases - Proteus mirabilis (lucero sens) - Achromobacter xylosidans: resistant to carbapenems, sens to Bactrim, Levofloxacin - wound Cx growing all of above plus A baumannii (lucero sens) 2. No sepsis: q-SOFA score 0 3. Confusion: - sec to hospital stay, medications (Zyprexa, Seroquel, [place], Clonazepam) Recommendations: - Continue IV Cefepime 2 gm q8 hrs through PICC line - will add Bactrim-DS 1 tablet bid for coverage against Achromobacter xylosidans - Pt has a drug interaction between Seroquel and Ciprofloxacin. I spoke with Viki Lovett NP (mental health provider) who will plan to taper her Seroquel after discharge. The discharging nurse to inform Viki Lovett so that pt could have a mental health follow up appt. - I will follow the patient in ID clinic in 4 weeks and switch to PO antibiotics based on clinical response and if she has been off Seroquel. - Date and time of follow up appt as follows: 08/23/18 at 10 am Follow up labs: ESR, CRP every other week CBC, BMP once weekly will follow Velasquez Winter M.D. Infectious diseases
--- NOTE | 2018-07-25 20:05 | General Surgery Progress Note ---
Subjective Patient reports: other (Patient seen with Dr. Winter and several times during the day. She had TWO HBOT today.) Narrative: Note initiated : 07/25/18 at 8:03 pm Service Date, if different from initiated Date: [] Patient: Yanni Topete 67 y/o F admitted on 07/18/18 for Rt Ankle Wound. Chief Complaint: [] Objective Temp Pulse Resp BP Pulse Ox 98.9 F 86 16 108/67 92 07/25/18 18:48 07/25/18 18:48 07/25/18 18:48 07/25/18 18:48 07/25/18 18:48 Resting comfortably. Good mood. AVSS. No changes ALEX. Right foot dressings were checked this morning. CDI Reportedly, Patient has ambulated some with weight bearing on Right foot. - Additional Data Intake & Output - Last 24 hours: Intake & Output 07/23/18 07/24/18 07/25/18 07/26/18 05:59 05:59 05:59 05:59 Intake Total 1100 1510 1800 360 Output Total 2475 1250 2475 Balance -1375 260 -675 360 Weight 221 lb 217 lb 8 oz 212 lb 212 lb - Labs 07/24/18 04:10 07/24/18 04:10 Assessment and Plan (1) Complication due to device, implant, or graft Status: Acute Current Visit: Yes - Narrative A/P Narrative: Assessment: Satisfactory post surgical progress. Tolerating HBOT uneventfully. For in house Physical Therapy starting SUNDAY NWB Right foot. Wound VAC Sunday. Plan: TWO HBOT on Sunday07/26/2018 Later One daily. Sing Bed until completion of HBOT. - Time Spent With Patient Total time spent is greater than 50% in coordination of care (as documented) at patient's floor/unit and/or counseling patient: 15 - 24 minutes
[2018-07-25] MEDS: OLANZapine 5 MG TABLET PO SCH (23:06)
[2018-07-25] MEDS: SIMVASTATIN 10 MG TABLET PO SCH (23:08)
[2018-07-25] MEDS: QUEtiapine 100 MG TABLET PO SCH (23:08)
[2018-07-25] MEDS: SULFAMETHOXAZOLE/TRIMETHOPRIM 1 TABLET PO SCH (23:09)
[2018-07-26] MEDS: 0.9 % SODIUM CHLORIDE 10 ML SYRINGE IV SCH ×7 (01:48→22:11)
[2018-07-26] MEDS: CEFEPIME 2 GM VIAL IV SCH ×3 (06:05→22:10)
[2018-07-26] MEDS: LEVOTHYROXINE 75 MCG TABLET PO SCH (06:36)
[2018-07-26] MEDS ORDERED: CARBAMIDE PEROXIDE OTIC SOL 15ML AU ONE (07:24)
--- NOTE | 2018-07-26 09:33 | General Surgery Progress Note ---
Subjective Narrative: Note initiated : 07/26/18 at 9:30 am Service Date, if different from initiated Date: [] Patient: Yanni Topete 67 y/o F admitted on 07/18/18 for Rt Ankle Wound. Chief Complaint: [] Patient examined this morning before, during and after HBO treatment. Objective Temp Pulse Resp BP Pulse Ox 98.3 F 78 16 126/69 92 07/26/18 03:54 07/26/18 03:54 07/26/18 03:54 07/26/18 03:54 07/26/18 03:54 AVSS. Alert and interactive. No changes in ALEX. Dressings Right foot and ankle CDI. Foot is aligned and warm, dry. - Additional Data Intake & Output - Last 24 hours: Intake & Output 07/24/18 07/25/18 07/26/18 07/27/18 05:59 05:59 05:59 05:59 Intake Total 1510 1800 900 Output Total 1250 2475 950 Balance 260 -675 -50 Weight 217 lb 8 oz 212 lb 220 lb 8 oz - Labs 07/24/18 04:10 07/24/18 04:10 Assessment and Plan (1) Complication due to device, implant, or graft Status: Acute Current Visit: Yes - Narrative A/P Narrative: Assessment: Undergoing post operative HBO for compromised wound and after repeat debridement and skin graft. Progressing well. Tolerated 3 HBOT and should get 4 th treatment later today. Plan: Primary change of dressing of wound on Later consider wound VAC. Patient needs to be in hospital for ongoing treatments in Swing Bed Status. Will consider discharge to rehab facility later next week after HBOT . - Time Spent With Patient Total time spent is greater than 50% in coordination of care (as documented) at patient's floor/unit and/or counseling patient: 15 - 24 minutes
[2018-07-26] MEDS: FAMOTIDINE 20 MG TABLET PO SCH ×2 (09:40→22:07)
[2018-07-26] MEDS: QUEtiapine 25 MG TABLET PO SCH ×2 (09:40→22:07)
[2018-07-26] MEDS: Oxcarbazepine [Trileptal] 600 mg Tab PO SCH ×2 (09:40→22:11)
[2018-07-26] MEDS: SULFAMETHOXAZOLE/TRIMETHOPRIM 1 TABLET PO SCH ×2 (09:41→22:07)
[2018-07-26] MEDS: LACTOBACILLUS 1 CAPSULE PO SCH (09:41)
[2018-07-26] MEDS: clonazePAM 1 MG TABLET PO SCH ×3 (09:41→22:07)
[2018-07-26] MEDS: HEPARIN 5,000 UNIT/ML VIAL SQ SCH ×2 (09:41→22:08)
--- NOTE | 2018-07-26 15:28 | Internal Med Progress Note ---
Medical - PN: Subj Patient information: Note initiated : 07/25/18 at 5:27 pm Service Date, if different from initiated Date: [] Patient: Yanni Topete a 67 y/o F admitted on 07/18/18 for Rt Ankle Wound. Chief Complaint: [] Interval history: Ms. Topete is a 67 year old F with history of bipolar disorder, chronic kidney disease presents to the hospital today for evaluation of her right lower extremity wound. The patient had history of fall in May, at which time she twisted her ankle and developed a complex fracture of the right ankle. She was operated by Dr. Velasquez in May and underwent an open reduction and internal fixation of the fracture. The patient was discharged subsequently. The patient apparently was managing her right lower extremity wound and blister however the patient's wound got progressively worse. There was some pussy discharge and she was seen in the wound care clinic today. In the wound care clinic on speaking with the wound care physician there was pus, and the wound l ooked infected. The patient was therefore sent to the emergency room for further evaluation. In the emergency room the patient is afebrile, hemodynamically stable, labs are stable kidney function is at baseline at around 1.3 -1.4. Patient has minimal pain on the right lower extremity with movement otherwise no other acute complaints or concerns. The wound care physician is the primary provider managing this patient, patient to be taken to the OR for cleanup and debridement by Dr. Velasquez tomorrow morning. Hospitalist has been consulted to help manage the logistics of inpatient stay. Wound care physician has been consulted by the wound care provider. 07/19 Pt seen examined, no acute issues reported labs stable awaitin 07/20 Somewhat poor sleep but otherwise no complaints. Sitting in bed comfortably eating breakfast. No new pains or complaints. Had I&D and removal of hardware yesterday. 07/21 Okay. No overnight events. Had BMs last night after laxatives given. Boot dressings in place on the right ankle. No new complaints 07/22 No overnight events. Feeling better. No new complaints. Seen by wound care this morning, wound appears to need further debridement. 07/23-patient doing better. Due for surgical debridement in 24 hours. No overnight fever chills. On antibiotic coverage as per ID specialist. Ongoing wound care by Dr. Mcdonald. No concerns per staff 07/24- patient status post surgical debridement/thickness skin graft placement by Dr. mahmood today. Doing well postoperatively. Ongoing nutritional support/antibiotic coverage as per ID. No overnight fever chills or concerns per staff. Intermittently confused. Complains of postoperative pain 07/25-patient undergoing hyperbaric oxygen treatment/wound care. On antibiotic coverage as per ID. Status post debridement. Moderately confused and disoriented. Ongoing physical therapy/nutritional support - Constitutional Vitals: Vital Signs Temp Pulse Resp BP Pulse Ox 97.0 F 90 18 111/72 95 07/26/18 09:54 07/26/18 12:00 07/26/18 12:00 07/26/18 12:00 07/26/18 12:00 Period Temp Pulse Resp BP Sys/Hoyt Pulse Ox Last 24 Hr 97.0 F-98.9 F 78-96 16-22 97-126/58-72 90-95 Intake and Output 07/26/18 07/26/18 07/26/18 05:59 13:59 21:59 Intake Total 540 840 Output Total 950 Balance -410 840 Intake & Output: Intake & Output 07/26/18 07/26/18 07/26/18 05:59 13:59 21:59 Intake Total 540 840 Output Total 950 Balance -410 840 Intake: Oral 540 840 Output: Void Amount 950 Other: Meal Lunch Percent of Meal Consumed 100% Feeding Ability Independent Urine Appearance Clear Urine Color Pale Urine Odor Normal General appearance: obese Exam: Intermittently confused Nonlabored breathing Nondistended abdomen Right ankle dressing Medical - PN: Obj Da - Labs CBC & Chem 7: 07/24/18 04:10 07/24/18 04:10 Labs: Abnormal Lab Results 07/24/18 07/24/18 04:10 04:10 RDW 15.0 H Eos % (Auto) 7.5 H Lymph # (Auto) 1.0 L Carbon Dioxide 21 L BUN 29 H Creatinine 1.4 H Glucose 132 H Alkaline Phosphatase 169 H Globulin 3.8 H Albumin/Globulin Ratio 0.9 L Triglycerides 202 H Meds: Medications Hydrocodone Bitart/Acetaminophen ([place] 7.5/325mg) 1 - 2 tab PO Q4HP PRN PRN Reason: Pain Last Admin: 07/25/18 03:13 Dose: 1 tab Documented by: Cefepime HCl (Maxipime) 2 gm IV Q8H [facility]; Protocol Last Admin: 07/26/18 15:16 Dose: 2 gm Documented by: Clonazepam (Klonopin) 1 mg PO TID [facility] Last Admin: 07/26/18 15:16 Dose: 1 mg Documented by: Docusate Sodium (Colace) 100 mg PO BID PRN PRN Reason: Constipation Famotidine (Pepcid) 20 mg PO BID [facility] Last Admin: 07/26/18 09:40 Dose: 20 mg Documented by: Heparin Sodium (Porcine) (Heparin) 5,000 unit SQ Q12 [facility] Last Admin: 07/26/18 09:41 Dose: 5,000 unit Documented by: Heparin Sodium (Porcine) (Heparin Flush) 2 ml IV Q12 [facility] Last Admin: 07/26/18 09:41 Dose: 2 ml Documented by: Lactobacillus Rhamnosus (Culturelle) 1 cap PO DAILY [facility] Last Admin: 07/26/18 09:41 Dose: 1 cap Documented by: Levothyroxine Sodium (Synthroid) 75 mcg PO QAMAC [facility] Last Admin: 07/26/18 06:36 Dose: 75 mcg Documented by: Naloxone HCl (Narcan) 0.1 mg IV Q2MIN PRN PRN Reason: Opiate Reversal Oxcarbazepine [ Trileptal] 600 Mg Tab 300 mg PO BID [facility] Last Admin: 07/26/18 09:40 Dose: 300 mg Documented by: Olanzapine (Zyprexa) 20 mg PO [facility] Last Admin: 07/25/18 23:06 Dose: 20 mg Documented by: Ondansetron HCl (Zofran) 4 mg IV Q6HP PRN PRN Reason: Nausea And Vomiting Polyethylene Glycol (Miralax) 17 gm PO DAILY PRN PRN Reason: Constipation Quetiapine Fumarate (Seroquel) 300 mg PO [facility] Last Admin: 07/25/18 23:08 Dose: 300 mg Documented by: Quetiapine Fumarate (Seroquel) 50 mg PO BID [facility] Last Admin: 07/26/18 09:40 Dose: 50 mg Documented by: Simvastatin (Zocor) 10 mg PO [facility] Last Admin: 07/25/18 23:08 Dose: 10 mg Documented by: Sodium Chloride (Saline Flush) 10 ml IV Q8 [facility] Last Admin: 07/26/18 15:16 Dose: 10 ml Documented by: Sodium Chloride (Saline Flush) 10 ml IV UD PRN PRN Reason: FLUSH Last Admin: 07/25/18 23:14 Dose: 10 ml Documented by: Sodium Chloride (Saline Flush) 10 ml IV Q12 [facility] Last Admin: 07/26/18 09:41 Dose: 10 ml Documented by: Trimethoprim/Sulfamethoxazole (Bactrim Ds) 1 tab PO BID [facility]; Protocol Last Admin: 07/26/18 09:41 Dose: 1 tab Documented by: Medical - PN: A/P - Time Spent With Patient Total time spent is greater than 50% in coordination of care (as documented) at patient's floor/unit and/or counseling patient: 25 - 35 minutes (1) Infection of joint of ankle Status: Acute Assessment and plan: * Osteomyelitis right ankle status post I&D/hardware removal 07/19 managed by wound care/orthopedics. Ongoing hyperbaric oxygen treatment. Antibiotic coverage per ID specialist * Right lower extremity infected ulcer-patient is status post skin graft/debridement by customer management specialist is Dr. Mcdonald. On antibiotics per ID * Chronic kidney disease stage III at baseline. Creatinine 1.4 * History of bipolar disorder continue on olanzapine/Seroquel * Hypothyroidism on thyroxine * Hyperlipidemia on statin * DVT prophylaxis on heparin Plan * Continue antibiotics/postoperative wound care per Dr. Mcdonald * Hyperbaric oxygen treatment per wound care * PT OT/nutrition support * Pre-existing medical condition management as above Current Visit: Yes Medical - PN: Qual - VTE Deep Vein Thrombosis/Pulmonary Embolism Present on Admission: No
--- NOTE | 2018-07-26 15:49 | Internal Med Progress Note ---
Medical - PN: Subj Patient information: Note initiated : 07/26/18 at 3:47 pm Service Date, if different from initiated Date: [] Patient: Yanni Topete a 67 y/o F admitted on 07/18/18 for Rt Ankle Wound. Chief Complaint: [] Interval history: Ms. Topete is a 67 year old F with history of bipolar disorder, chronic kidney disease presents to the hospital today for evaluation of her right lower extremity wound. The patient had history of fall in May, at which time she twisted her ankle and developed a complex fracture of the right ankle. She was operated by Dr. Velasquez in May and underwent an open reduction and internal fixation of the fracture. The patient was discharged subsequently. The patient apparently was managing her right lower extremity wound and blister however the patient's wound got progressively worse. There was some pussy discharge and she was seen in the wound care clinic today. In the wound care clinic on speaking with the wound care physician there was pus, and the wound l ooked infected. The patient was therefore sent to the emergency room for further evaluation. In the emergency room the patient is afebrile, hemodynamically stable, labs are stable kidney function is at baseline at around 1.3 -1.4. Patient has minimal pain on the right lower extremity with movement otherwise no other acute complaints or concerns. The wound care physician is the primary provider managing this patient, patient to be taken to the OR for cleanup and debridement by Dr. Velasquez tomorrow morning. Hospitalist has been consulted to help manage the logistics of inpatient stay. Wound care physician has been consulted by the wound care provider. 07/19 Pt seen examined, no acute issues reported labs stable awaitin 07/20 Somewhat poor sleep but otherwise no complaints. Sitting in bed comfortably eating breakfast. No new pains or complaints. Had I&D and removal of hardware yesterday. 07/21 Okay. No overnight events. Had BMs last night after laxatives given. Boot dressings in place on the right ankle. No new complaints 07/22 No overnight events. Feeling better. No new complaints. Seen by wound care this morning, wound appears to need further debridement. 07/23-patient doing better. Due for surgical debridement in 24 hours. No overnight fever chills. On antibiotic coverage as per ID specialist. Ongoing wound care by Dr. Mcdonald. No concerns per staff 07/24- patient status post surgical debridement/thickness skin graft placement by Dr. mahmood today. Doing well postoperatively. Ongoing nutritional support/antibiotic coverage as per ID. No overnight fever chills or concerns per staff. Intermittently confused. Complains of postoperative pain 07/25-patient undergoing hyperbaric oxygen treatment/wound care. On antibiotic coverage as per ID. Status post debridement. Moderately confused and disoriented. Ongoing physical therapy/nutritional support 07/26-doing well. Undergoing hyperbaric oxygen treatment. No overnight fever chills nausea vomiting. No other concerns per staff. Continuing antibiotics and wound care along with PT OT - Constitutional Vitals: Vital Signs Temp Pulse Resp BP Pulse Ox 97.3 F 96 H 18 110/78 94 07/26/18 15:33 07/26/18 15:33 07/26/18 15:33 07/26/18 15:33 07/26/18 15:33 Period Temp Pulse Resp BP Sys/Hoyt Pulse Ox Last 24 Hr 97.0 F-98.9 F 78-96 16-22 97-126/58-78 90-95 Intake and Output 07/26/18 07/26/18 07/26/18 05:59 13:59 21:59 Intake Total 540 840 Output Total 950 902 Balance -410 840 -902 Intake & Output: Intake & Output 07/26/18 07/26/18 07/26/18 05:59 13:59 21:59 Intake Total 540 840 Output Total 950 902 Balance -410 840 -902 Intake: Oral 540 840 Output: Void Amount 950 900 # of times incontinent of urine 2 Other: Meal Lunch Percent of Meal Consumed 100% Feeding Ability Independent Urine Appearance Clear Urine Color Pale Urine Odor Normal Medical - PN: Obj Da - Labs CBC & Chem 7: 07/24/18 04:10 07/24/18 04:10 Labs: Abnormal Lab Results 07/24/18 07/24/18 04:10 04:10 RDW 15.0 H Eos % (Auto) 7.5 H Lymph # (Auto) 1.0 L Carbon Dioxide 21 L BUN 29 H Creatinine 1.4 H Glucose 132 H Alkaline Phosphatase 169 H Globulin 3.8 H Albumin/Globulin Ratio 0.9 L Triglycerides 202 H Meds: Medications Hydrocodone Bitart/Acetaminophen ([place] 7.5/325mg) 1 - 2 tab PO Q4HP PRN PRN Reason: Pain Last Admin: 07/25/18 03:13 Dose: 1 tab Documented by: Cefepime HCl (Maxipime) 2 gm IV Q8H [facility]; Protocol Last Admin: 07/26/18 15:16 Dose: 2 gm Documented by: Clonazepam (Klonopin) 1 mg PO TID [facility] Last Admin: 07/26/18 15:16 Dose: 1 mg Documented by: Docusate Sodium (Colace) 100 mg PO BID PRN PRN Reason: Constipation Famotidine (Pepcid) 20 mg PO BID [facility] Last Admin: 07/26/18 09:40 Dose: 20 mg Documented by: Heparin Sodium (Porcine) (Heparin) 5,000 unit SQ Q12 [facility] Last Admin: 07/26/18 09:41 Dose: 5,000 unit Documented by: Heparin Sodium (Porcine) (Heparin Flush) 2 ml IV Q12 [facility] Last Admin: 07/26/18 09:41 Dose: 2 ml Documented by: Lactobacillus Rhamnosus (Culturelle) 1 cap PO DAILY [facility] Last Admin: 07/26/18 09:41 Dose: 1 cap Documented by: Levothyroxine Sodium (Synthroid) 75 mcg PO QAMAC [facility] Last Admin: 07/26/18 06:36 Dose: 75 mcg Documented by: Naloxone HCl (Narcan) 0.1 mg IV Q2MIN PRN PRN Reason: Opiate Reversal Oxcarbazepine [ Trileptal] 600 Mg Tab 300 mg PO BID [facility] Last Admin: 07/26/18 09:40 Dose: 300 mg Documented by: Olanzapine (Zyprexa) 20 mg PO [facility] Last Admin: 07/25/18 23:06 Dose: 20 mg Documented by: Ondansetron HCl (Zofran) 4 mg IV Q6HP PRN PRN Reason: Nausea And Vomiting Polyethylene Glycol (Miralax) 17 gm PO DAILY PRN PRN Reason: Constipation Quetiapine Fumarate (Seroquel) 300 mg PO [facility] Last Admin: 07/25/18 23:08 Dose: 300 mg Documented by: Quetiapine Fumarate (Seroquel) 50 mg PO BID [facility] Last Admin: 07/26/18 09:40 Dose: 50 mg Documented by: Simvastatin (Zocor) 10 mg PO HS [facility] Last Admin: 07/25/18 23:08 Dose: 10 mg Documented by: Sodium Chloride (Saline Flush) 10 ml IV Q8 [facility] Last Admin: 07/26/18 15:16 Dose: 10 ml Documented by: Sodium Chloride (Saline Flush) 10 ml IV UD PRN PRN Reason: FLUSH Last Admin: 07/25/18 23:14 Dose: 10 ml Documented by: Sodium Chloride (Saline Flush) 10 ml IV Q12 [facility] Last Admin: 07/26/18 09:41 Dose: 10 ml Documented by: Trimethoprim/Sulfamethoxazole (Bactrim Ds) 1 tab PO BID [facility]; Protocol Last Admin: 07/26/18 09:41 Dose: 1 tab Documented by: Medical - PN: A/P - Time Spent With Patient Total time spent is greater than 50% in coordination of care (as documented) at patient's floor/unit and/or counseling patient: 25 - 35 minutes (1) Infection of joint of ankle Status: Acute Assessment and plan: * Osteomyelitis right ankle status post I&D/hardware removal 07/19 managed by wound care Antibiotic coverage per ID specialist * Right lower extremity infected ulcer-WC per Dr Mcdonald, s/p skin graft/debridement. Clinically improving. Ongoing hyperbaric oxygen treatment. * Chronic kidney disease stage III at baseline. * History of bipolar disorder continue on olanzapine/Seroquel * Hypothyroidism on thyroxine * Dementia with anxiety stable * Hyperlipidemia on statin * DVT prophylaxis on heparin Plan * Continue antibiotics per ID specialist * HBOT and Wound care per Dr. Mcdonald * PT OT/nutrition support * Pre-existing medical condition management as above Current Visit: Yes Medical - PN: Qual - VTE Deep Vein Thrombosis/Pulmonary Embolism Present on Admission: No
[2018-07-26] MEDS: SIMVASTATIN 10 MG TABLET PO SCH (22:07)
[2018-07-26] MEDS: OLANZapine 5 MG TABLET PO SCH (22:08)
[2018-07-26] MEDS: QUEtiapine 100 MG TABLET PO SCH (22:08)
[2018-07-27] MEDS: 0.9 % SODIUM CHLORIDE 10 ML SYRINGE IV SCH ×4 (05:20→21:54)
[2018-07-27] MEDS: CEFEPIME 2 GM VIAL IV SCH ×3 (05:20→21:53)
[2018-07-27] MEDS: FAMOTIDINE 20 MG TABLET PO SCH ×2 (08:06→21:51)
[2018-07-27] MEDS: Oxcarbazepine [Trileptal] 600 mg Tab PO SCH ×2 (08:06→21:59)
[2018-07-27] MEDS: LACTOBACILLUS 1 CAPSULE PO SCH (08:06)
[2018-07-27] MEDS: clonazePAM 1 MG TABLET PO SCH ×3 (08:06→21:51)
[2018-07-27] MEDS: LEVOTHYROXINE 75 MCG TABLET PO SCH (08:06)
[2018-07-27] MEDS: SULFAMETHOXAZOLE/TRIMETHOPRIM 1 TABLET PO SCH ×2 (08:06→21:51)
[2018-07-27] MEDS: QUEtiapine 25 MG TABLET PO SCH ×2 (08:06→21:52)
[2018-07-27] MEDS: HEPARIN 5,000 UNIT/ML VIAL SQ SCH ×2 (08:06→21:51)
[2018-07-27 09:24] LABS: Mean Cell Volume 92.4 fL (80.0-100.0); Mean Corpuscular HGB Conc 31.8 g/dL (31.0-36.0); Platelet Count 174 K/mcL (140-440); RBC 4.35 M/mcL (4.00-5.20); Red Cell Distribution Width 14.4 % (11.5-14.5)
--- NOTE | 2018-07-27 09:26 | Internal Med Progress Note ---
Medical - PN: Subj Patient information: Note initiated : 07/27/18 at 9:23 am Service Date, if different from initiated Date: [] Patient: Yanni Topete a 67 y/o F admitted on 07/18/18 for Rt Ankle Wound. Chief Complaint: [] Interval history: Ms. Topete is a 67 year old F with history of bipolar disorder, chronic kidney disease presents to the hospital today for evaluation of her right lower extremity wound. The patient had history of fall in May, at which time she twisted her ankle and developed a complex fracture of the right ankle. She was operated by Dr. Velasquez in May and underwent an open reduction and internal fixation of the fracture. The patient was discharged subsequently. The patient apparently was managing her right lower extremity wound and blister however the patient's wound got progressively worse. There was some pussy discharge and she was seen in the wound care clinic today. In the wound care clinic on speaking with the wound care physician there was pus, and the wound l ooked infected. The patient was therefore sent to the emergency room for further evaluation. In the emergency room the patient is afebrile, hemodynamically stable, labs are stable kidney function is at baseline at around 1.3 -1.4. Patient has minimal pain on the right lower extremity with movement otherwise no other acute complaints or concerns. The wound care physician is the primary provider managing this patient, patient to be taken to the OR for cleanup and debridement by Dr. Velasquez tomorrow morning. Hospitalist has been consulted to help manage the logistics of inpatient stay. Wound care physician has been consulted by the wound care provider. 07/19 Pt seen examined, no acute issues reported labs stable awaitin 07/20 Somewhat poor sleep but otherwise no complaints. Sitting in bed comfortably eating breakfast. No new pains or complaints. Had I&D and removal of hardware yesterday. 07/21 Okay. No overnight events. Had BMs last night after laxatives given. Boot dressings in place on the right ankle. No new complaints 07/22 No overnight events. Feeling better. No new complaints. Seen by wound care this morning, wound appears to need further debridement. 07/23-patient doing better. Due for surgical debridement in 24 hours. No overnight fever chills. On antibiotic coverage as per ID specialist. Ongoing wound care by Dr. Mcdonald. No concerns per staff 07/24- patient status post surgical debridement/thickness skin graft placement by Dr. timoteo richard. Doing well postoperatively. Ongoing nutritional support/antibiotic coverage as per ID. No overnight fever chills or concerns per staff. Intermittently confused. Complains of postoperative pain 07/25-patient undergoing hyperbaric oxygen treatment/wound care. On antibiotic coverage as per ID. Status post debridement. Moderately confused and disoriented. Ongoing physical therapy/nutritional support 07/26-doing well. Undergoing hyperbaric oxygen treatment. No overnight fever chills nausea vomiting. No other concerns per staff. Continuing antibiotics and wound care along with PT OT 07/27-patient fell during transfer from bed after her knee buckled. Witnessed by staff members. Patient denied any pain following a fall. She continues to participate with therapies. Ongoing hyperbaric treatment/wound care/antibiotic coverage. Remains intermittently confused. No fever chills - Constitutional Vitals: Vital Signs Temp Pulse Resp BP Pulse Ox 97.1 F 115 H 20 141/73 96 07/27/18 06:21 07/27/18 06:16 07/27/18 06:16 07/27/18 06:16 07/27/18 06:16 Period Temp Pulse Resp BP Sys/Hoyt Pulse Ox Last 24 Hr 97.0 F-98.3 F 83-115 16-20 97-141/60-78 93-96 Intake and Output 07/26/18 07/27/18 07/27/18 21:59 05:59 13:59 Intake Total 120 450 Output Total 1677 551 Balance -1557 -101 Weight 220 lb Intake & Output: Intake & Output 07/26/18 07/27/18 07/27/18 21:59 05:59 13:59 Intake Total 120 450 Output Total 1677 551 Balance -1557 -101 Weight 220 lb Intake: Nourishment/Supplement quantity 120 (ml) Oral 450 Output: Void Amount 1675 550 # of times incontinent of urine 2 1 Other: Meal Dinner Percent of Meal Consumed 100% Nourishment/Supplement name ensure enlive Urine Appearance Clear Clear Urine Color Straw Pale Urine Odor Normal Normal # Voids 1 General appearance: no acute distress Exam: Confused but cooperative Nonlabored breathing Nondistended abdomen Right foot boot Medical - PN: Obj Da - Labs CBC & Chem 7: 07/24/18 04:10 07/24/18 04:10 Meds: Medications Hydrocodone Bitart/Acetaminophen ([place] 7.5/325mg) 1 - 2 tab PO Q4HP PRN PRN Reason: Pain Last Admin: 07/25/18 03:13 Dose: 1 tab Documented by: Cefepime HCl (Maxipime) 2 gm IV Q8H [facility]; Protocol Last Admin: 07/27/18 05:20 Dose: 2 gm Documented by: Clonazepam (Klonopin) 1 mg PO TID [facility] Last Admin: 07/27/18 08:06 Dose: 1 mg Documented by: Docusate Sodium (Colace) 100 mg PO BID PRN PRN Reason: Constipation Famotidine (Pepcid) 20 mg PO BID [facility] Last Admin: 07/27/18 08:06 Dose: 20 mg Documented by: Heparin Sodium (Porcine) (Heparin) 5,000 unit SQ Q12 [facility] Last Admin: 07/27/18 08:06 Dose: 5,000 unit Documented by: Heparin Sodium (Porcine) (Heparin Flush) 2 ml IV Q12 [facility] Last Admin: 07/27/18 08:06 Dose: 2 ml Documented by: Lactobacillus Rhamnosus (Culturelle) 1 cap PO DAILY [facility] Last Admin: 07/27/18 08:06 Dose: 1 cap Documented by: Levothyroxine Sodium (Synthroid) 75 mcg PO QAMAC [facility] Last Admin: 07/27/18 08:06 Dose: 75 mcg Documented by: Naloxone HCl (Narcan) 0.1 mg IV Q2MIN PRN PRN Reason: Opiate Reversal Oxcarbazepine [ Trileptal] 600 Mg Tab 300 mg PO BID [facility] Last Admin: 07/27/18 08:06 Dose: 300 mg Documented by: Olanzapine (Zyprexa) 20 mg PO HS [facility] Last Admin: 07/26/18 22:08 Dose: 20 mg Documented by: Ondansetron HCl (Zofran) 4 mg IV Q6HP PRN PRN Reason: Nausea And Vomiting Polyethylene Glycol (Miralax) 17 gm PO DAILY PRN PRN Reason: Constipation Quetiapine Fumarate (Seroquel) 300 mg PO HS [facility] Last Admin: 07/26/18 22:08 Dose: 300 mg Documented by: Quetiapine Fumarate (Seroquel) 50 mg PO BID [facility] Last Admin: 07/27/18 08:06 Dose: 50 mg Documented by: Simvastatin (Zocor) 10 mg PO HS [facility] Last Admin: 07/26/18 22:07 Dose: 10 mg Documented by: Sodium Chloride (Saline Flush) 10 ml IV Q8 [facility] Last Admin: 07/27/18 05:20 Dose: 10 ml Documented by: Sodium Chloride (Saline Flush) 10 ml IV UD PRN PRN Reason: FLUSH Last Admin: 07/25/18 23:14 Dose: 10 ml Documented by: Sodium Chloride (Saline Flush) 10 ml IV Q12 [facility] Last Admin: 07/27/18 08:07 Dose: 10 ml Documented by: Trimethoprim/Sulfamethoxazole (Bactrim Ds) 1 tab PO BID [facility]; Protocol Last Admin: 07/27/18 08:06 Dose: 1 tab Documented by: Medical - PN: A/P - Time Spent With Patient Total time spent is greater than 50% in coordination of care (as documented) at patient's floor/unit and/or counseling patient: 25 - 35 minutes (1) Infection of joint of ankle Status: Acute Assessment and plan: * Osteomyelitis right ankle status post I&D/hardware removal 07/19/18, postoperative wound management per Dr. Mcdonald. Antibiotic coverage per ID specialist. On cefepime/Bactrim * Right lower extremity infected ulcer-WC per Dr Mcdonald, s/p skin graft/debridement. Clinically improving. Ongoing hyperbaric oxygen treatment. * Chronic kidney disease stage III at baseline. * History of bipolar disorder continue on olanzapine/Seroquel * Hypothyroidism on thyroxine * Dementia with anxiety stable * Hyperlipidemia on statin * DVT prophylaxis on heparin Plan * Continue antibiotics per ID specialist * Continuing HBOT and Wound care per Dr. Mcdonald * Continue Fall risk/precautions * PT OT/nutrition support * Pre-existing medical condition management as above Current Visit: Yes Medical - PN: Qual - VTE Deep Vein Thrombosis/Pulmonary Embolism Present on Admission: No
[2018-07-27 09:39] LABS: ALT/SGPT 23 U/l (0-40); Alkaline Phosphatase 169 U/L (39-117); Bilirubin,Direct < 0.2 mg/dL (0.0-0.3); Blood Urea Nitrogen 33 mg/dl (8-23); Gamma Glutamyl Transpeptidase 24 U/L (5-36); Uric Acid 3.9 mg/dL (2.5-8.0)
[2018-07-27 10:14] LABS: Eosinophils % (Manual) 4 % (0-7); Lymphocytes % 13 % (15-49); Monocytes % (Manual) 7 % (1-12); Platelet Estimate NORMAL (NORMAL); RBC Morphology NORMAL (NORMAL); Segmented Neutrophils % 76 % (38-78)
--- NOTE | 2018-07-27 12:55 | Internal Med Progress Note ---
Medical - PN: Subj Patient information: Note initiated : 07/27/18 at 12:52 pm Service Date, if different from initiated Date: [] Patient: Yanni Topete a 67 y/o F admitted on 07/18/18 for Rt Ankle Wound. Chief Complaint: [] Interval history: Ms. Topete is a 67 year old F with history of bipolar disorder, chronic kidney disease presents to the hospital today for evaluation of her right lower extremity wound. The patient had history of fall in May, at which time she twisted her ankle and developed a complex fracture of the right ankle. She was operated by Dr. Velasquez in May and underwent an open reduction and internal fixation of the fracture. The patient was discharged subsequently. The patient apparently was managing her right lower extremity wound and blister however the patient's wound got progressively worse. There was some pussy discharge and she was seen in the wound care clinic today. In the wound care clinic on speaking with the wound care physician there was pus, and the wound looked infected. The patient was therefore sent to the emergency room for further evaluation. In the emergency room the patient is afebrile, hemodynamically stable, labs are stable kidney function is at baseline at around 1.3 -1.4. Patient has minimal pain on the right lower extremity with movement otherwise no other acute complaints or concerns. The wound care physician is the primary provider managing this patient, patient to be taken to the OR for cleanup and debridement by Dr. Velasquez tomorrow morning. Hospitalist has been consulted to help manage the logistics of inpatient stay. Wound care physician has been consulted by the wound care provider. 07/19 Pt seen examined, no acute issues reported labs stable awaitin 07/20 Somewhat poor sleep but otherwise no complaints. Sitting in bed comfortably eating breakfast. No new pains or complaints. Had I&D and removal of hardware yesterday. 07/21 Okay. No overnight events. Had BMs last night after laxatives given. Boot dressings in place on the right ankle. No new complaints 07/22 No overnight events. Feeling better. No new complaints. Seen by wound care this morning, wound appears to need further debridement. 07/23-patient doing better. Due for surgical debridement in 24 hours. No overnight fever chills. On antibiotic coverage as per ID specialist. Ongoing wound care by Dr. Mcdonald. No concerns per staff 07/24- patient status post surgical debridement/thickness skin graft placement by Dr. mahmood today. Doing well postoperatively. Ongoing nutritional support/antibiotic coverage as per ID. No overnight fever chills or concerns per staff. Intermittently confused. Complains of postoperative pain 07/25-patient undergoing hyperbaric oxygen treatment/wound care. On antibiotic coverage as per ID. Status post debridement. Moderately confused and disoriented. Ongoing physical therapy/nutritional support 07/26-doing well. Undergoing hyperbaric oxygen treatment. No overnight fever chills nausea vomiting. No other concerns per staff. Continuing antibiotics and wound care along with PT OT 07/27-patient fell during transfer from bed after her knee buckled. Witnessed by staff members. Patient denied any pain following a fall. She continues to participate with therapies. Ongoing hyperbaric treatment/wound care/antibiotic coverage. Remains intermittently confused. No fever chills 07/28 Called by nursing shortly after 12:00am after nurse went in room to get vital signs. Patient with severe hypoxia with sats in the high 40s. Patient unresponsive. Pulse present, tachycardic. Per nurse reports of apnea in the past and has been on oxygen occasionally through the nights and while sleeping. She was immediately placed on Ambu bag and oral airway which brought her sats up to 100%. She was still unresponsive. Transitioned her from bag valve mask to 100% nonrebreather to see how she responded. She started to desat and was placed back on the [id number]. She was given Romazicon 0.2 without response and subsequently given another 0.3. Eventually she started to moan. She did start becoming more responsive to pain. She is placed on the nonrebreather mask with oral airway and is able to maintain airway and saturations. Her initial pH was 6.9 and CO2 over 100. She had a repeat ABGs similar and then another one which showed pH 7.25 and a CO2 of 60 when she was more responsive. She continued to become increasing responsive moving extremities spontaneously and moving eyes. No verbalizations. Given her relatively quick response it is likely that nursing was able to catch her before any significant duration of hypoxia took place, to have caused an anoxic brain injury/. Patient's CODE STATUS limited - CPR and resuscitative medications okay but no intubation and if poor prognosis then comfort care. Family was called and spent considerable amount of time discussing case with family. Given her responsiveness patient will be moved to ICU and will be placed on BiPAP. Follow-up ABG prior to being placed on BiPAP showed increasing CO2 again. Home clonazepam held. will need formal sleep study, cpap at night. This morning... - Constitutional Vitals: Vital Signs Temp Pulse Resp BP Pulse Ox 97.1 F 115 H 20 141/73 96 07/27/18 06:21 07/27/18 06:16 07/27/18 06:16 07/27/18 06:16 07/27/18 06:16 Period Temp Pulse Resp BP Sys/Hoyt Pulse Ox Last 24 Hr 97.1 F-98.3 F 83-115 16-20 110-141/69-78 94-96 Intake and Output 07/26/18 07/27/18 07/27/18 21:59 05:59 13:59 Intake Total 120 450 Output Total 1677 551 Balance -1557 -101 Weight 99.79 kg Intake & Output: Intake & Output 07/26/18 07/27/18 07/27/18 21:59 05:59 13:59 Intake Total 120 450 Output Total 1677 551 Balance -1557 -101 Weight 99.79 kg Intake: Nourishment/Supplement quantity 120 (ml) Oral 450 Output: Void Amount 1675 550 # of times incontinent of urine 2 1 Other: Meal Dinner Percent of Meal Consumed 100% Nourishment/Supplement name ensure enlive Urine Appearance Clear Clear Urine Color Straw Pale Urine Odor Normal Normal # Voids 1 Exam: General: Alert, Awake, No acute Distress Eyes/N/T: EOMI, Head/Neck: neck supple, CV: RRR, 1/6 SM Pulm: Clear b/l, no wheezing/rhonchi/rales Abd: soft, nontender, +BS x4 Ext: no clubbing/cyanosis, mild edema LLE. right ankle with large open wound and surrounding erythema. Neuro: Alert, no focal deficits, moves all extremities, Skin: warm/dry Medical - PN: Obj Da - Labs CBC & Chem 7: 07/28/18 00:08 07/28/18 00:08 Labs: Abnormal Lab Results 07/27/18 07/27/18 08:09 08:09 Lymphocytes % 13 L BUN 33 H Creatinine 1.3 H Glucose 155 H Alkaline Phosphatase 169 H Globulin 4.1 H Triglycerides 172 H Meds: Medications Hydrocodone Bitart/Acetaminophen ([place] 7.5/325mg) 1 - 2 tab PO Q4HP PRN PRN Reason: Pain Last Admin: 07/25/18 03:13 Dose: 1 tab Documented by: Cefepime HCl (Maxipime) 2 gm IV Q8H [facility]; Protocol Last Admin: 07/27/18 05:20 Dose: 2 gm Documented by: Clonazepam (Klonopin) 1 mg PO TID [facility] Last Admin: 07/27/18 08:06 Dose: 1 mg Documented by: Docusate Sodium (Colace) 100 mg PO BID PRN PRN Reason: Constipation Famotidine (Pepcid) 20 mg PO BID [facility] Last Admin: 07/27/18 08:06 Dose: 20 mg Documented by: Heparin Sodium (Porcine) (Heparin) 5,000 unit SQ Q12 [facility] Last Admin: 07/27/18 08:06 Dose: 5,000 unit Documented by: Heparin Sodium (Porcine) (Heparin Flush) 2 ml IV Q12 [facility] Last Admin: 07/27/18 08:06 Dose: 2 ml Documented by: Lactobacillus Rhamnosus (Culturelle) 1 cap PO DAILY [facility] Last Admin: 07/27/18 08:06 Dose: 1 cap Documented by: Levothyroxine Sodium (Synthroid) 75 mcg PO QAMAC [facility] Last Admin: 07/27/18 08:06 Dose: 75 mcg Documented by: Naloxone HCl (Narcan) 0.1 mg IV Q2MIN PRN PRN Reason: Opiate Reversal Oxcarbazepine [ Trileptal] 600 Mg Tab 300 mg PO BID [facility] Last Admin: 07/27/18 08:06 Dose: 300 mg Documented by: Olanzapine (Zyprexa) 20 mg PO HS [facility] Last Admin: 07/26/18 22:08 Dose: 20 mg Documented by: Ondansetron HCl (Zofran) 4 mg IV Q6HP PRN PRN Reason: Nausea And Vomiting Polyethylene Glycol (Miralax) 17 gm PO DAILY PRN PRN Reason: Constipation Quetiapine Fumarate (Seroquel) 300 mg PO HS [facility] Last Admin: 07/26/18 22:08 Dose: 300 mg Documented by: Quetiapine Fumarate (Seroquel) 50 mg PO BID [facility] Last Admin: 07/27/18 08:06 Dose: 50 mg Documented by: Simvastatin (Zocor) 10 mg PO HS [facility] Last Admin: 07/26/18 22:07 Dose: 10 mg Documented by: Sodium Chloride (Saline Flush) 10 ml IV Q8 [facility] Last Admin: 07/27/18 05:20 Dose: 10 ml Documented by: Sodium Chloride (Saline Flush) 10 ml IV UD PRN PRN Reason: FLUSH Last Admin: 07/25/18 23:14 Dose: 10 ml Documented by: Sodium Chloride (Saline Flush) 10 ml IV Q12 [facility] Last Admin: 07/27/18 08:07 Dose: 10 ml Documented by: Trimethoprim/Sulfamethoxazole (Bactrim Ds) 1 tab PO BID [facility]; Protocol Last Admin: 07/27/18 08:06 Dose: 1 tab Documented by: Medical - PN: A/P - Time Spent With Patient Total time spent is greater than 50% in coordination of care (as documented) at patient's floor/unit and/or counseling patient: - Narrative A/P Narrative: A/P: *Hypoxic/hypercapnic resp failure: 2/2 sleep apnea + medications -moved to ICU -benzo's held for now and will be on prn basis -Bipap for now, will need CPAP nightly and will need outpt sleep study -f/u ABG *Post operative infection/osteo right ankle: s/p I&D & hardware removal (07/19) -repeat I&D (07/24) *Right lower extremity infected Ulcer: -Wound car per Dr Velasquez and Dr Keane. HBO -WC with Proteus/Enterobacter/Acineo baumannii -Antibiotic Management per Dr Winter/ Infectious disease. -pt/ot *CKD III: -Creat at baseline, attributed to use of lithium as per patient, not on lithium anymore, levels undetectable *Bipolar d/o: -stable, resume home meds *Dementia: *ppx: heparin Limited code status (CPR/meds ok, No Intubation, if poor prognosis then comfort care) Medical - PN: Qual - VTE Deep Vein Thrombosis/Pulmonary Embolism Present on Admission: No
--- NOTE | 2018-07-27 13:39 | General Surgery Progress Note ---
Subjective Narrative: Note initiated : 07/27/18 at 1:36 pm Service Date, if different from initiated Date: [] Patient: Yanni Topete 67 y/o F admitted on 07/18/18 for Rt Ankle Wound. Chief Complaint: [] Patient seen along with Princess RN and Jackie RN I/C. Patient had a ground level slip during transfer from bed to BR. Witnessed. Patient helped back to bed. At time of my assessment, she was at base line. Comfortable and cooperative. Objective Temp Pulse Resp BP Pulse Ox 97.1 F 115 H 20 141/73 96 07/27/18 06:21 07/27/18 06:16 07/27/18 06:16 07/27/18 06:16 07/27/18 06:16 - Additional Data Intake & Output - Last 24 hours: Intake & Output 07/25/18 07/26/18 07/27/18 07/28/18 05:59 05:59 05:59 05:59 Intake Total 3995 658 7540 Output Total 2475 950 2228 Balance -675 -50 -818 Weight 212 lb 220 lb 8 oz 220 lb 07/27/18 13:39 AVSS. No changes ALEX. Right foot dressing CDI. Toes are warm and dry. Manjeet boot in place. - Labs 07/27/18 08:09 07/27/18 08:09 Diabetes panel 07/27/18 Range/Units 08:09 Sodium 140 (133-145) mmol/L Potassium 5.1 (3.3-5.1) mmol/L Chloride 102 (96-108) mmol/L Carbon Dioxide 27 (22-30) mmol/L BUN 33 H (8-23) mg/dl Creatinine 1.3 H (0.6-1.1) mg/dl Glucose 155 H (70-105) mg/dL Calcium 10.2 (8.6-10.4) mg/dl AST 18 (0-37) U/l ALT 23 (0-40) U/l Alkaline Phosphatase 169 H (39-117) U/L Total Protein 8.1 (5.9-8.4) gm/dL Albumin 4.0 (3.2-5.2) gm/dL Triglycerides 172 H (<150) mg/dl Calcium panel 07/27/18 Range/Units 08:09 Calcium 10.2 (8.6-10.4) mg/dl Phosphorus 3.4 (2.7-4.5) mg/dL Albumin 4.0 (3.2-5.2) gm/dL Pituitary panel 07/27/18 Range/Units 08:09 Sodium 140 (133-145) mmol/L Potassium 5.1 (3.3-5.1) mmol/L Chloride 102 (96-108) mmol/L Carbon Dioxide 27 (22-30) mmol/L BUN 33 H (8-23) mg/dl Creatinine 1.3 H (0.6-1.1) mg/dl Glucose 155 H (70-105) mg/dL Calcium 10.2 (8.6-10.4) mg/dl Adrenal panel 07/27/18 Range/Units 08:09 Sodium 140 (133-145) mmol/L Potassium 5.1 (3.3-5.1) mmol/L Chloride 102 (96-108) mmol/L Carbon Dioxide 27 (22-30) mmol/L BUN 33 H (8-23) mg/dl Creatinine 1.3 H (0.6-1.1) mg/dl Glucose 155 H (70-105) mg/dL Calcium 10.2 (8.6-10.4) mg/dl Total Bilirubin < 0.2 (0.0-1.0) mg/dL AST 18 (0-37) U/l ALT 23 (0-40) U/l Alkaline Phosphatase 169 H (39-117) U/L Total Protein 8.1 (5.9-8.4) gm/dL Albumin 4.0 (3.2-5.2) gm/dL Assessment and Plan (1) Complication due to device, implant, or graft Status: Acute Current Visit: Yes - Time Spent With Patient Total time spent is greater than 50% in coordination of care (as documented) at patient's floor/unit and/or counseling patient: Assessment: Satisfactory progress from wound care point of view. Plan: CPT. HBO from M-F Daily. Primary wound dressing change. +/- Wound vac. Anticipate reassessment and recommendations for D/C planning by late next week. less than 15 minutes
--- NOTE | 2018-07-27 14:03 | XRay Report ---
HISTORY: Fell with thoracic pain FINDINGS: There is a moderate kyphoscoliotic curvature with the convexity to the right at T8. The bones are osteoporotic. There is no evidence of fracture. There are large anterior bridging osteophytes throughout the mid and upper thoracic spine. The vertebral bodies and disc spaces are normal in height. There is a Picc line placed through the left arm with the tip overlying the aortic arch in the general location of the left innominate vein. Comparison with the prior chest x-ray from 07/24/18 shows no significant change in appearance of the spine. IMPRESSION: Kyphoscoliosis with arthritis No evidence of a fracture Interpreted and Authenticated by: Isaias Portillo 07/27/18
[2018-07-27] MEDS: SIMVASTATIN 10 MG TABLET PO SCH (21:51)
[2018-07-27] MEDS: OLANZapine 5 MG TABLET PO SCH (21:52)
[2018-07-27] MEDS: QUEtiapine 100 MG TABLET PO SCH (21:53)
[2018-07-28] MEDS ORDERED: FLUMAZENIL 0.1 MG/ML ML IV ONE (00:13)
[2018-07-28] MEDS ORDERED: clonazePAM 1 MG TABLET PO PRN (00:50)
[2018-07-28 00:59] LABS: Basophils # (Auto) 0.1 K/mcL (0.0-0.3); Basophils % (Auto) 0.6 % (0.0-2.0); Eosinophils # (Auto) 0.5 K/mcL (0.0-0.7); Eosinophils % (Auto) 4.3 % (0.0-7.0); Lymphocytes # (Auto) 3.5 K/mcL (1.5-4.8); Lymphocytes % (Auto) 31.3 % (15.5-49.0); Mean Cell Volume 93.2 fL (80.0-100.0); Mean Corpuscular HGB Conc 31.3 g/dL (31.0-36.0); Monocytes % (Auto) 8.8 % (1.0-12.0); Platelet Count 187 K/mcL (140-440); Red Cell Distribution Width 14.9 % (11.5-14.5)
--- NOTE | 2018-07-28 01:06 | Event Note ---
Called by nursing shortly after 12:00 after nurse went in room to get vital signs. Patient with severe hypoxia with sats in the high 40s. Patient unresponsive. Pulse present, tachycardic. Per nurse reports of apnea in the past and has been on oxygen occasionally through the nights and while sleeping. She was immediately placed on Ambu bag and oral airway which brought her sats up to 100%. She was still unresponsive. Transitioned her from bag valve mask to 100% nonrebreather to see how she responded. She started to desat and was placed back on the [id number]. She was given Romazicon 0.2 without response and subsequently given another 0.3. Eventually she started to moan. She did start becoming more responsive to pain. She is placed on the nonrebreather mask with oral airway and is able to maintain airway and saturations. Her initial pH was 6.9 and CO2 over 100. She had a repeat ABGs similar and then another one which showed pH 7.25 and a CO2 of 60 when she was more responsive. She continued to become increasing responsive moving extremities spontaneously and moving eyes. No verbalizations. Given her relatively quick response it is likely that nursing was able to catch her before any significant duration of hypoxia took place, to have caused an anoxic brain injury/. Patient's CODE STATUS limited - CPR and resuscitative medications okay but no intubation and if poor prognosis then comfort care. Family was called and spent considerable amount of time discussing case with family. Given her responsiveness patient will be moved to ICU and will be placed on BiPAP. Follow-up ABG prior to being placed on BiPAP showed increasing CO2 again. Home clonazepam held. will need formal sleep study, cpap at night.
[2018-07-28 01:16] LABS: ALT/SGPT 21 U/l (0-40); Albumin 3.7 gm/dL (3.2-5.2); Alkaline Phosphatase 167 U/L (39-117); Blood Urea Nitrogen 37 mg/dl (8-23)
[2018-07-28] MEDS ORDERED: ONDANSETRON 4 MG/2 ML VIAL IV PRN (01:57)
[2018-07-28] MEDS ORDERED: 0.9 % SODIUM CHLORIDE 10 ML SYRINGE IV PRN (01:57)
[2018-07-28] MEDS ORDERED: NALOXONE HCL 0.4 MG/ML VIAL IV PRN (01:57)
[2018-07-28] MEDS ORDERED: HYDROCODONE/APAP 7.5/325MG TABLET PO PRN (01:57)
[2018-07-28] MEDS ORDERED: LORazepam 2 MG/ML VIAL IV PRN ×2 (01:57→10:23)
[2018-07-28] MEDS ORDERED: CEFEPIME 1 GM VIAL ONE (05:43)
[2018-07-28] MEDS: CEFEPIME 2 GM VIAL IV SCH ×3 (05:50→22:16)
[2018-07-28] MEDS: 0.9 % SODIUM CHLORIDE 10 ML SYRINGE IV SCH ×6 (05:51→20:54)
--- NOTE | 2018-07-28 08:01 | Internal Med Progress Note ---
Medical - PN: Subj Patient information: Note initiated : 07/28/18 at 7:53 am Service Date, if different from initiated Date: [] Patient: Yanni Topete a 67 y/o F admitted on 07/18/18 for Rt Ankle Wound. Chief Complaint: [] Interval history: Ms. Topete is a 67 year old F with history of bipolar disorder, chronic kidney disease presents to the hospital today for evaluation of her right lower extremity wound. The patient had history of fall in May, at which time she twisted her ankle and developed a complex fracture of the right ankle. She was operated by Dr. Velasquez in May and underwent an open reduction and internal fixation of the fracture. The patient was discharged subsequently. The patient apparently was managing her right lower extremity wound and blister however the patient's wound got progressively worse. There was some pussy discharge and she was seen in the wound care clinic today. In the wound care clinic on speaking with the wound care physician there was pus, and the wound l ooked infected. The patient was therefore sent to the emergency room for further evaluation. In the emergency room the patient is afebrile, hemodynamically stable, labs are stable kidney function is at baseline at around 1.3 -1.4. Patient has minimal pain on the right lower extremity with movement otherwise no other acute complaints or concerns. The wound care physician is the primary provider managing this patient, patient to be taken to the OR for cleanup and debridement by Dr. Velasquez tomorrow morning. Hospitalist has been consulted to help manage the logistics of inpatient stay. Wound care physician has been consulted by the wound care provider. 07/19 Pt seen examined, no acute issues reported labs stable awaitin 07/20 Somewhat poor sleep but otherwise no complaints. Sitting in bed comfortably eating breakfast. No new pains or complaints. Had I&D and removal of hardware yesterday. 07/21 Okay. No overnight events. Had BMs last night after laxatives given. Boot dressings in place on the right ankle. No new complaints 07/22 No overnight events. Feeling better. No new complaints. Seen by wound care this morning, wound appears to need further debridement. 07/23-patient doing better. Due for surgical debridement in 24 hours. No overnight fever chills. On antibiotic coverage as per ID specialist. Ongoing wound care by Dr. Mcdonald. No concerns per staff 07/24- patient status post surgical debridement/thickness skin graft placement by Dr. mahmood today. Doing well postoperatively. Ongoing nutritional support/antibiotic coverage as per ID. No overnight fever chills or concerns per staff. Intermittently confused. Complains of postoperative pain 07/25-patient undergoing hyperbaric oxygen treatment/wound care. On antibiotic coverage as per ID. Status post debridement. Moderately confused and disoriented. Ongoing physical therapy/nutritional support 07/26-doing well. Undergoing hyperbaric oxygen treatment. No overnight fever chills nausea vomiting. No other concerns per staff. Continuing antibiotics and wound care along with PT OT 07/27-patient fell during transfer from bed after her knee buckled. Witnessed by staff members. Patient denied any pain following a fall. She continues to participate with therapies. Ongoing hyperbaric treatment/wound care/antibiotic coverage. Remains intermittently confused. No fever chills 07/28 Called by nursing shortly after 12:00am after nurse went in room to get vital signs. Patient with severe hypoxia with sats in the high 40s. Patient unresponsive. Pulse present, tachycardic. Per nurse reports of apnea in the past and has been on oxygen occasionally through the nights and while sleeping. She was immediately placed on Ambu bag and oral airway which brought her sats up to 100%. She was still unresponsive. Transitioned her from bag valve mask to 100% nonrebreather to see how she responded. She started to desat and was placed back on the [id number]. She was given Romazicon 0.2 without response and subsequently given another 0.3. Eventually she started to moan. She did s tart becoming more responsive to pain. She is placed on the nonrebreather mask with oral airway and is able to maintain airway and saturations. Her initial pH was 6.9 and CO2 over 100. She had a repeat ABGs similar and then another one which showed pH 7.25 and a CO2 of 60 when she was more responsive. She continued to become increasing responsive moving extremities spontaneously and moving eyes. No verbalizations. Given her relatively quick response it is likely that nursing was able to catch her before any significant duration of hypoxia took place, to have caused an anoxic brain injury/. Patient's CODE STATUS limited - CPR and resuscitative medications okay but no intubation and if poor prognosis then comfort care. Family was called and spent considerable amount of time discussing case with family. Given her responsiveness patient will be moved to ICU and will be placed on B iPAP. Follow-up ABG prior to being placed on BiPAP showed increasing CO2 again. Home clonazepam held. will need formal sleep study, cpap at night. ----- This morning per nursing she was little more responsive follows some commands and appeared to be answering some questions but it was more garbled speech. Now she is sleeping again and has decreased responsiveness. Saw her she did squeeze my hand on the right responded to touch the other extremities. Remains nonverbal. pupils are equal round reactive. Unable to get review of system as patient is nonverbal. Family at bedside, including her brother who is her guardian and makes her medical decisions for her, CODE STATUS further clarified and patient is a DO NOT RESUSCITATE - Constitutional Vitals: Vital Signs Temp Pulse Resp BP Pulse Ox 97.8 F 68 13 99/64 96 07/28/18 02:01 07/28/18 06:54 07/28/18 07:01 07/28/18 07:01 07/28/18 07:01 Period Temp Pulse Resp BP Sys/Hoyt Pulse Ox Last 24 Hr 97.6 F-98.5 F 68-110 12-22 87-150/59-129 49-100 Intake and Output 07/27/18 07/28/18 07/28/18 21:59 05:59 13:59 Intake Total 1000 Output Total 450 Balance 1000 -450 Intake & Output: Intake & Output 07/27/18 07/28/18 07/28/18 21:59 05:59 13:59 Intake Total 1000 Output Total 450 Balance 1000 -450 Intake: Oral 1000 Output: Urine Catheter Amount 450 Other: Meal Dinner Percent of Meal Consumed 100% Feeding Ability Independent Urine Appearance Clear Clear Urine Color Bright Yellow Bright Yellow Urine Odor Normal # Voids 1 Exam: General: Lethargic, No acute Distress Eyes/N/T: PEERL Head/Neck: neck supple, CV: RRR, 1/6 SM Pulm: Clear b/l, no wheezing/rhonchi/rales Abd: soft, nontender, +BS x4 Ext: no clubbing/cyanosis, mild edema LLE. right ankle dressings and boot in place Neuro: Lethargic, poorly responsive. Did squeeze hand to command on the right. Other extremities respond to touch. PEERL, did appear to answer 1 of my questions but speech was garbled. Skin: warm/dry Medical - PN: Obj Da - Labs CBC & Chem 7: 07/28/18 08:24 07/28/18 08:24 Labs: Abnormal Lab Results 07/28/18 07/28/18 07/28/18 00:08 00:08 00:08 WBC 11.2 H RDW 14.9 H [place] # (Auto) 1.0 H Lymphocytes % VBG Lactic Acid 2.1 H POC BUN 39 H BUN 37 H Creatinine 1.4 H POC Creatinine 1.4 H Glucose 307 H POC Glucose 300 H Alkaline Phosphatase 167 H Globulin Triglycerides 07/27/18 07/27/18 08:09 08:09 WBC RDW [place] # (Auto) Lymphocytes % 13 L VBG Lactic Acid POC BUN BUN 33 H Creatinine 1.3 H POC Creatinine Glucose 155 H POC Glucose Alkaline Phosphatase 169 H Globulin 4.1 H Triglycerides 172 H Meds: Medications Hydrocodone Bitart/Acetaminophen ([place] 7.5/325mg) 1 - 2 tab PO Q4HP PRN PRN Reason: Pain Cefepime HCl (Maxipime) 2 gm IV Q8H [facility]; Protocol Last Admin: 07/28/18 05:50 Dose: Not Given Documented by: Clonazepam (Klonopin) 0.5 mg PO BIDP PRN PRN Reason: Anxiety Docusate Sodium (Colace) 100 mg PO BID PRN PRN Reason: Constipation Famotidine (Pepcid) 20 mg PO BID [facility] Heparin Sodium (Porcine) (Heparin) 5,000 unit SQ Q12 [facility] Heparin Sodium (Porcine) (Heparin Flush) 2 ml IV Q12 [facility] Lactobacillus Rhamnosus (Culturelle) 1 cap PO DAILY [facility] Levothyroxine Sodium (Synthroid) 75 mcg PO QAMAC [facility] Lorazepam (Ativan) 1 mg IV Q2HP PRN PRN Reason: Seizure Activity Naloxone HCl (Narcan) 0.1 mg IV Q2MIN PRN PRN Reason: Opiate Reversal Oxcarbazepine [ Trileptal] 600 Mg Tab 300 mg PO BID [facility] Olanzapine (Zyprexa) 20 mg PO HS [facility] Ondansetron HCl (Zofran) 4 mg IV Q6HP PRN PRN Reason: Nausea And Vomiting Polyethylene Glycol (Miralax) 17 gm PO DAILY PRN PRN Reason: Constipation Quetiapine Fumarate (Seroquel) 300 mg PO HS [facility] Quetiapine Fumarate (Seroquel) 50 mg PO BID [facility] Simvastatin (Zocor) 10 mg PO HS [facility] Sodium Chloride (Saline Flush) 10 ml IV UD PRN PRN Reason: FLUSH Sodium Chloride (Saline Flush) 10 ml IV Q8 [facility] Last Admin: 07/28/18 05:51 Dose: 10 ml Documented by: Sodium Chloride (Saline Flush) 10 ml IV Q12 [facility] Trimethoprim/Sulfamethoxazole (Bactrim Ds) 1 tab PO BID [facility]; Protocol Medical - PN: A/P - Time Spent With Patient Total time spent is greater than 50% in coordination of care (as documented) at patient's floor/unit and/or counseling patient: - Narrative A/P Narrative: A/P: *Hypoxic/hypercapnic Resp failure: 2/2 sleep apnea + medications -moved to ICU -benzo's held for now and will be on prn basis -Bipap for now, will need CPAP nightly and will need outpt sleep study -f/u ABG -duration of hypoxia unknown, guarded prognosis *Encephalopathy, Metabolic: -CT brain pending *Post operative infection/osteo right ankle: s/p I&D & hardware removal (07/19) -repeat I&D (07/24) *Right lower extremity infected Ulcer: -Wound car per Dr Velasquez and Dr Keane. HBO -WC with Proteus/Enterobacter/Acineo baumannii -Antibiotic Management per Dr Winter/ Infectious disease. -pt/ot *CKD III: -Creat at baseline, attributed to use of lithium as per patient, not on lithium anymore, levels undetectable *Bipolar d/o: home meds include clonazepam/zyprexa/seroquel -stable, resume home meds *Dementia: *Goals of care: Duration of hypoxia unknown. Patient has been in decline over the past year per family ready. -Guarded prognosis. -Multiple family discussions taking place for the last 24 hours. Her CODE STATUS is changed from Limited to DNR -Her brother is her guardian who makes her medical decisions for her *ppx: heparin DO NOT RESUSCITATE Medical - PN: Qual - VTE Deep Vein Thrombosis/Pulmonary Embolism Present on Admission: No
--- NOTE | 2018-07-28 08:47 | XRay Report ---
HISTORY: Short of breath FINDINGS: Study was done at 12:22 AM. Patient is rotated to the left and there are multiple overlying artifacts. There is opacification laterally at the left lung base. This could be pneumonia, atelectasis, pleural effusion or large epicardial fat pad. A linear band of discoid atelectasis is present in the middle third of the right lung. Heart is difficult to evaluate but grossly normal in size. Pulmonary vessels are mildly prominent. There is a PICC line placed to the left arm with the tip in the region of the innominate vein. IMPRESSION: Limited exam with possible left lower lobe infiltrate Interpreted and Authenticated by: Isaias Portillo 07/28/18
--- NOTE | 2018-07-28 08:50 | XRay Report ---
HISTORY: Short of breath FINDINGS: Two portable semiupright AP images were obtained at 7:12 AM. The opacification seen laterally at the left lung base on the earlier film done at midnight is no longer present. This was probably artifactual related to rotation of the patient. Behind the left heart border there is a vertically oriented thick band of discoid atelectasis with minor atelectasis above the diaphragm at the costophrenic sulcus. The linear discoid atelectasis seen in the midportion of the right lung on the prior study has resolved. The right lung is now clear. Left upper lobe and lingula are clear. The heart size is normal. There is no congestive heart failure. Scoliosis and arthritis are present in the thoracic spine. IMPRESSION: bands of discoid atelectasis in the left lower lobe Interpreted and Authenticated by: Isaias Portillo 07/28/18
[2018-07-28 09:27] LABS: Mean Cell Volume 91.9 fL (80.0-100.0); Mean Corpuscular HGB Conc 31.8 g/dL (31.0-36.0); Platelet Count 146 K/mcL (140-440); RBC 3.94 M/mcL (4.00-5.20); Red Cell Distribution Width 14.2 % (11.5-14.5)
[2018-07-28 09:34] LABS: ALT/SGPT 21 U/l (0-40); Albumin 3.7 gm/dL (3.2-5.2); Alkaline Phosphatase 158 U/L (39-117); Bilirubin,Direct < 0.2 mg/dL (0.0-0.3); Blood Urea Nitrogen 37 mg/dl (8-23); Gamma Glutamyl Transpeptidase 22 U/L (5-36); Uric Acid 4.4 mg/dL (2.5-8.0)
[2018-07-28 09:36] LABS: Basophils % (Manual) 2 % (0-2); Lymphocytes % 9 % (15-49); Monocytes % (Manual) 10 % (1-12); Platelet Estimate NORMAL (NORMAL); RBC Morphology NORMAL (NORMAL); Segmented Neutrophils % 79 % (38-78)
[2018-07-28] MEDS ORDERED: DEXTROSE 5%-1/2NS 1,000 ML IV SCH (10:30)
[2018-07-28] MEDS: SULFAMETHOXAZOLE/TRIMETHOPRIM 1 TABLET PO SCH ×2 (13:09→20:41)
[2018-07-28] MEDS: LEVOTHYROXINE 75 MCG TABLET PO SCH (13:09)
[2018-07-28] MEDS: LACTOBACILLUS 1 CAPSULE PO SCH (13:10)
[2018-07-28] MEDS: Oxcarbazepine [Trileptal] 600 mg Tab PO SCH ×2 (13:10→20:44)
[2018-07-28] MEDS: DOCUSATE SODIUM 100 MG CAPSULE PO PRN (13:10)
[2018-07-28] MEDS: HEPARIN 5,000 UNIT/ML VIAL SQ SCH ×2 (13:10→20:41)
[2018-07-28] MEDS: FAMOTIDINE 20 MG TABLET PO SCH ×2 (13:10→20:41)
[2018-07-28] MEDS: QUEtiapine 25 MG TABLET PO SCH ×2 (13:14→20:33)
--- NOTE | 2018-07-28 14:28 | Cat Scan Report ---
History: Anoxic brain injury TECHNIQUE: The brain was imaged without contrast at 2.5 mm intervals. Radiation exposure was limited using dose reduction technology. FINDINGS: There is mild cerebral atrophy. There are subtle areas of decreased attenuation in the white matter within the frontal and parietal lobes bilaterally suggesting early white matter ischemia or degeneration. There is no apparent infarct or cerebral edema. No mass effect or hemorrhage are present. The ventricles and cisterns are normal. IMPRESSION: Mild age-related degenerative changes and no acute abnormality is detected. Dr. White was called with the results Interpreted and Authenticated by: Isaias Portillo 07/28/18
[2018-07-28] MEDS: clonazePAM 1 MG TABLET PO PRN (20:33)
[2018-07-28] MEDS: SIMVASTATIN 10 MG TABLET PO SCH (20:42)
[2018-07-28] MEDS: OLANZapine 5 MG TABLET PO SCH (20:54)
[2018-07-28] MEDS ORDERED: QUEtiapine 100 MG TABLET PO SCH (21:00)
[2018-07-29 05:39] LABS: Basophils # (Auto) 0 K/mcL (0.0-0.3); Basophils % (Auto) 0.5 % (0.0-2.0); Eosinophils # (Auto) 0.3 K/mcL (0.0-0.7); Eosinophils % (Auto) 4.6 % (0.0-7.0); Granulocytes % (Auto) 63.4 % (38.0-78.0); Lymphocytes # (Auto) 1.5 K/mcL (1.5-4.8); Lymphocytes % (Auto) 21.5 % (15.5-49.0); Mean Cell Volume 92.2 fL (80.0-100.0); Mean Corpuscular HGB Conc 32.2 g/dL (31.0-36.0); Monocytes # (Auto) 0.7 K/mcL (0.1-0.9); Platelet Count 145 K/mcL (140-440); RBC 3.93 M/mcL (4.00-5.20); Red Cell Distribution Width 14.4 % (11.5-14.5)
[2018-07-29] MEDS: CEFEPIME 2 GM VIAL IV SCH ×3 (05:50→22:47)
[2018-07-29] MEDS: 0.9 % SODIUM CHLORIDE 10 ML SYRINGE IV SCH ×5 (05:51→22:52)
[2018-07-29 05:59] LABS: Blood Urea Nitrogen 39 mg/dl (8-23)
[2018-07-29] MEDS: clonazePAM 1 MG TABLET PO PRN (06:40)
[2018-07-29] MEDS: LEVOTHYROXINE 75 MCG TABLET PO SCH (06:41)
[2018-07-29] MEDS ORDERED: 0.9 % SODIUM CHLORIDE 750 ML IV ONE (07:53)
--- NOTE | 2018-07-29 07:54 | Internal Med Progress Note ---
Medical - PN: Subj Patient information: Note initiated : 07/29/18 at 7:48 am Service Date, if different from initiated Date: [] Patient: Yanni Topete a 67 y/o F admitted on 07/18/18 for Rt Ankle Wound. Chief Complaint: [] Interval history: Ms. Topete is a 67 year old F with history of bipolar disorder, chronic kidney disease presents to the hospital today for evaluation of her right lower extremity wound. The patient had history of fall in May, at which time she twisted her ankle and developed a complex fracture of the right ankle. She was operated by Dr. Velasquez in May and underwent an open reduction and internal fixation of the fracture. The patient was discharged subsequently. The patient apparently was managing her right lower extremity wound and blister however the patient's wound got progressively worse. There was some pussy discharge and she was seen in the wound care clinic today. In the wound care clinic on speaking with the wound care physician there was pus, and the wound l ooked infected. The patient was therefore sent to the emergency room for further evaluation. In the emergency room the patient is afebrile, hemodynamically stable, labs are stable kidney function is at baseline at around 1.3 -1.4. Patient has minimal pain on the right lower extremity with movement otherwise no other acute complaints or concerns. The wound care physician is the primary provider managing this patient, patient to be taken to the OR for cleanup and debridement by Dr. Velasquez tomorrow morning. Hospitalist has been consulted to help manage the logistics of inpatient stay. Wound care physician has been consulted by the wound care provider. 07/19 Pt seen examined, no acute issues reported labs stable awaitin 07/20 Somewhat poor sleep but otherwise no complaints. Sitting in bed comfortably eating breakfast. No new pains or complaints. Had I&D and removal of hardware yesterday. 07/21 Okay. No overnight events. Had BMs last night after laxatives given. Boot dressings in place on the right ankle. No new complaints 07/22 No overnight events. Feeling better. No new complaints. Seen by wound care this morning, wound appears to need further debridement. 07/23-patient doing better. Due for surgical debridement in 24 hours. No overnight fever chills. On antibiotic coverage as per ID specialist. Ongoing wound care by Dr. Mcdonald. No concerns per staff 07/24- patient status post surgical debridement/thickness skin graft placement by Dr. mahmood today. Doing well postoperatively. Ongoing nutritional support/antibiotic coverage as per ID. No overnight fever chills or concerns per staff. Intermittently confused. Complains of postoperative pain 07/25-patient undergoing hyperbaric oxygen treatment/wound care. On antibiotic coverage as per ID. Status post debridement. Moderately confused and disoriented. Ongoing physical therapy/nutritional support 07/26-doing well. Undergoing hyperbaric oxygen treatment. No overnight fever chills nausea vomiting. No other concerns per staff. Continuing antibiotics and wound care along with PT OT 07/27-patient fell during transfer from bed after her knee buckled. Witnessed by staff members. Patient denied any pain following a fall. She continues to participate with therapies. Ongoing hyperbaric treatment/wound care/antibiotic coverage. Remains intermittently confused. No fever chills 07/28 Called by nursing shortly after 12:00am after nurse went in room to get vital signs. Patient with severe hypoxia with sats in the high 40s. Patient unresponsive. Pulse present, tachycardic. Per nurse reports of apnea in the past and has been on oxygen occasionally through the nights and while sleeping. She was immediately placed on Ambu bag and oral airway which brought her sats up to 100%. She was still unresponsive. Transitioned her from bag valve mask to 100% nonrebreather to see how she responded. She started to desat and was placed back on the [id number]. She was given Romazicon 0.2 without response and subsequently given another 0.3. Eventually she started to moan. She did s tart becoming more responsive to pain. She is placed on the nonrebreather mask with oral airway and is able to maintain airway and saturations. Her initial pH was 6.9 and CO2 over 100. She had a repeat ABGs similar and then another one which showed pH 7.25 and a CO2 of 60 when she was more responsive. She continued to become increasing responsive moving extremities spontaneously and moving eyes. No verbalizations. Given her relatively quick response it is likely that nursing was able to catch her before any significant duration of hypoxia took place, to have caused an anoxic brain injury/. Patient's CODE STATUS limited - CPR and resuscitative medications okay but no intubation and if poor prognosis then comfort care. Family was called and spent considerable amount of time discussing case with family. Given her responsiveness patient will be moved to ICU and will be placed on B iPAP. Follow-up ABG prior to being placed on BiPAP showed increasing CO2 again. Home clonazepam held. will need formal sleep study, cpap at night. ----- This morning per nursing she was little more responsive follows some commands and appeared to be answering some questions but it was more garbled speech. Now she is sleeping again and has decreased responsiveness. Saw her she did squeeze my hand on the right responded to touch the other extremities. Remains nonverbal. pupils are equal round reactive. Unable to get review of system as patient is nonverbal. Family at bedside, including her brother who is her guardian and makes her medical decisions for her, CODE STATUS further clarified and patient is a DO NOT RESUSCITATE 07/29 Patient sitting up in bed this morning awake and talkative. Denies any chest pain coughing shortness of breath nausea. Review of Systems: denies headache/fever/chills/nausea/vomiting/chest or abdominal pain/cough/dyspnea/diarrhea. Otherwise see above. - Constitutional Vitals: Vital Signs Temp Pulse Resp BP Pulse Ox 97.7 F 82 20 110/92 93 07/29/18 07:00 07/29/18 07:11 07/29/18 07:00 07/29/18 07:00 07/29/18 07:11 Period Temp Pulse Resp BP Sys/Hoyt Pulse Ox Last 24 Hr 96.8 F-99.5 F 39-91 14-26 93-134/59-92 88-100 Intake and Output 07/28/18 07/29/18 07/29/18 21:59 05:59 13:59 Intake Total 580 360 Output Total 610 1225 160 Balance -30 -1225 200 Weight 97.386 kg Intake & Output: Intake & Output 07/28/18 07/29/18 07/29/18 21:59 05:59 13:59 Intake Total 580 360 Output Total 610 1225 160 Balance -30 -1225 200 Weight 97.386 kg Intake: Oral 580 360 Output: Urine Catheter Amount 610 1225 160 Other: Meal Dinner Percent of Meal Consumed 100% Feeding Ability Independent Urine Appearance Clear Clear Clear Uretheral (Pearce) Clear Clear Urine Color Pale Pale Straw Uretheral (Pearce) Pale Straw Exam: General: Awake and alert, No acute Distress Eyes/N/T: EOMI Head/Neck: neck supple, CV: RRR, 1/6 SM Pulm: Clear b/l, no wheezing/rhonchi/rales Abd: soft, nontender, +BS x4 Ext: no clubbing/cyanosis, mild edema LLE. right ankle dressings and boot in place Neuro: Awake and alert, follows commands, alert and oriented x4 however sometimes after redirect her with my questions or repeat myself and sometimes she will repeat her answers several times. However the family states that she does this at home sometimes and they been wondering about underlying dementia . Follows commands moves all extremities Skin: warm/dry Medical - PN: Obj Da - Labs CBC & Chem 7: 07/29/18 03:26 07/29/18 03:26 Labs: Abnormal Lab Results 07/29/18 07/29/18 07/28/18 03:26 03:26 08:24 WBC RBC 3.93 L Hgb 11.6 L RDW [place] # (Auto) Seg Neutrophils % Lymphocytes % VBG Lactic Acid Potassium 5.3 H POC BUN BUN 39 H 37 H Creatinine 1.4 H 1.3 H POC Creatinine Glucose 116 H POC Glucose Alkaline Phosphatase 158 H Globulin Triglycerides 07/28/18 07/28/18 07/28/18 08:24 00:08 00:08 WBC RBC 3.94 L Hgb 11.5 L RDW [place] # (Auto) Seg Neutrophils % 79 H Lymphocytes % 9 L VBG Lactic Acid 2.1 H Potassium POC BUN 39 H BUN 37 H Creatinine 1.4 H POC Creatinine 1.4 H Glucose 307 H POC Glucose 300 H Alkaline Phosphatase 167 H Globulin Triglycerides 07/28/18 07/27/18 07/27/18 00:08 08:09 08:09 WBC 11.2 H RBC Hgb RDW 14.9 H [place] # (Auto) 1.0 H Seg Neutrophils % Lymphocytes % 13 L VBG Lactic Acid Potassium POC BUN BUN 33 H Creatinine 1.3 H POC Creatinine Glucose 155 H POC Glucose Alkaline Phosphatase 169 H Globulin 4.1 H Triglycerides 172 H Meds: Medications Hydrocodone Bitart/Acetaminophen ([place] 7.5/325mg) 1 - 2 tab PO Q4HP PRN PRN Reason: Pain Cefepime HCl (Maxipime) 2 gm IV Q8H STACIE; Protocol Last Admin: 07/29/18 05:50 Dose: 2 gm Documented by: Clonazepam (Klonopin) 0.5 mg PO BIDP PRN PRN Reason: Anxiety Last Admin: 07/29/18 06:40 Dose: 0.5 mg Documented by: Docusate Sodium (Colace) 100 mg PO BID PRN PRN Reason: Constipation Last Admin: 07/28/18 13:10 Dose: 100 mg Documented by: Famotidine (Pepcid) 20 mg PO BID [facility] Last Admin: 07/28/18 20:41 Dose: 20 mg Documented by: Heparin Sodium (Porcine) (Heparin) 5,000 unit SQ Q12 [facility] Last Admin: 07/28/18 20:41 Dose: 5,000 unit Documented by: Heparin Sodium (Porcine) (Heparin Flush) 2 ml IV Q12 [facility] Last Admin: 07/28/18 20:42 Dose: 2 ml Documented by: Lactobacillus Rhamnosus (Culturelle) 1 cap PO DAILY [facility] Last Admin: 07/28/18 13:10 Dose: 1 cap Documented by: Levothyroxine Sodium (Synthroid) 75 mcg PO QAMAC [facility] Last Admin: 07/29/18 06:41 Dose: 75 mcg Documented by: Lorazepam (Ativan) 1 mg IV Q2HP PRN PRN Reason: Seizure Activity or withdrawal Naloxone HCl (Narcan) 0.1 mg IV Q2MIN PRN PRN Reason: Opiate Reversal Oxcarbazepine [ Trileptal] 600 Mg Tab 300 mg PO BID [facility] Last Admin: 07/28/18 20:44 Dose: 300 mg Documented by: Olanzapine (Zyprexa) 20 mg PO HS [facility] Last Admin: 07/28/18 20:54 Dose: Not Given Documented by: Ondansetron HCl (Zofran) 4 mg IV Q6HP PRN PRN Reason: Nausea And Vomiting Polyethylene Glycol (Miralax) 17 gm PO DAILY PRN PRN Reason: Constipation Quetiapine Fumarate (Seroquel) 50 mg PO BID [facility] Last Admin: 07/28/18 20:33 Dose: 50 mg Documented by: Simvastatin (Zocor) 10 mg PO HS [facility] Last Admin: 07/28/18 20:42 Dose: 10 mg Documented by: Sodium Chloride (Saline Flush) 10 ml IV UD PRN PRN Reason: FLUSH Sodium Chloride (Saline Flush) 10 ml IV Q8 [facility] Last Admin: 07/29/18 05:51 Dose: 10 ml Documented by: Sodium Chloride (Saline Flush) 10 ml IV Q12 [facility] Last Admin: 07/28/18 20:54 Dose: Not Given Documented by: Trimethoprim/Sulfamethoxazole (Bactrim Ds) 1 tab PO BID [facility]; Protocol Last Admin: 07/28/18 20:41 Dose: 1 tab Documented by: Medical - PN: A/P - Time Spent With Patient Total time spent is greater than 50% in coordination of care (as documented) at patient's floor/unit and/or counseling patient: - Narrative A/P Narrative: A/P: *Hypoxic/hypercapnic Resp failure: 2/2 likely medications +/- underlying sleep a pnea -rapid response night of 07/27 with severely reduced O2 sats on routine VS, duration of hypoxia unknown -Improved -benzo's held initially, now on prn basis -off Bipap, will need CPAP nightly and will need outpt sleep study *Encephalopathy, Metabolic: Greatly improved -CT brain no acute, but with mild cerebral atrophy and white matter ischemic dz. ABG ok *Post operative infection/osteo right ankle: s/p I&D & hardware removal (07/19) -repeat I&D (07/24) *Right lower extremity infected Ulcer: -Wound car per Dr Velasquez and Dr Keane. HBO -WC with Proteus/Enterobacter/Acineo baumannii -Antibiotic Management per Dr Winter/ Infectious disease. -pt/ot *CKD III: -Creat at baseline, attributed to use of lithium as per patient, not on lithium anymore, levels undetectable *Bipolar d/o: home meds include clonazepam/zyprexa/seroquel - *Dementia: per family has been declining over past year, memory issues and repeating herself. *Goals of care: Duration of hypoxia unknown. Patient has been in decline over the past year per family ready. -Multiple family discussions taking place over the previous 24hrs. Her CODE STATUS was changed from Limited to DNR -Her brother is her guardian who makes her medical decisions for her *ppx: heparin DO NOT RESUSCITATE Medical - PN: Qual - VTE Deep Vein Thrombosis/Pulmonary Embolism Present on Admission: No
[2018-07-29] MEDS: SULFAMETHOXAZOLE/TRIMETHOPRIM 1 TABLET PO SCH ×2 (08:30→20:05)
[2018-07-29] MEDS: QUEtiapine 25 MG TABLET PO SCH ×2 (08:30→20:04)
[2018-07-29] MEDS: HEPARIN 5,000 UNIT/ML VIAL SQ SCH ×2 (08:31→20:03)
[2018-07-29] MEDS: LACTOBACILLUS 1 CAPSULE PO SCH (08:31)
[2018-07-29] MEDS: Oxcarbazepine [Trileptal] 600 mg Tab PO SCH ×2 (08:31→20:21)
[2018-07-29] MEDS: FAMOTIDINE 20 MG TABLET PO SCH ×2 (08:31→20:05)
--- NOTE | 2018-07-29 10:37 | General Surgery Progress Note ---
Subjective Patient reports: feels better, tolerating a regular diet, other (H/O Apneic spell yesterday with O2 sats <40. ) Narrative: Note initiated : 07/29/18 at 10:31 am Service Date, if different from initiated Date: [] Patient: Yanni Topete 67 y/o F admitted on 07/18/18 for Rt Ankle Wound. Chief Complaint: [] Saw patient at bedside with Stefanie RN ( Wound Care ) and [facility]. Spoke at length with Edna SWANSON and Dr. vidal, Hospitalist Physician. Went over details of Code White ( Apnea with O2 sats < 40 )yesterday. Patient's psych meds on hold and she is alert, conversational at base line. Out in chair and ate breakfast. Knows that [employer] won [employer] tournament yesterday. Objective Temp Pulse Resp BP Pulse Ox 97.7 F 81 22 108/70 94 07/29/18 07:00 07/29/18 10:02 07/29/18 10:02 07/29/18 10:02 07/29/18 10:02 AVSS. ALEX at base line. O2 sats in 90s. Sinus rhythm L/E. Donor site Right thigh CDI. Recipient site Right leg: Primary dressing change. Skin graft is adhering well. 100 % take at this time. REDRESSED. - Additional Data Intake & Output - Last 24 hours: Intake & Output 07/27/18 07/28/18 07/29/18 07/30/18 05:59 05:59 05:59 05:59 Intake Total 1410 1360 580 720 Output Total 2224 2775 365 Balance -818 1360 -2195 355 Weight 220 lb 214 lb 11.2 oz - Labs 07/29/18 03:26 07/29/18 03:26 Diabetes panel 07/29/18 Range/Units 03:26 Sodium 137 (133-145) mmol/L Potassium 4.5 (3.3-5.1) mmol/L Chloride 100 (96-108) mmol/L Carbon Dioxide 24 (22-30) mmol/L BUN 39 H (8-23) mg/dl Creatinine 1.4 H (0.6-1.1) mg/dl Glucose 99 (70-105) mg/dL Calcium 10.0 (8.6-10.4) mg/dl Calcium panel 07/29/18 Range/Units 03:26 Calcium 10.0 (8.6-10.4) mg/dl Pituitary panel 07/29/18 Range/Units 03:26 Sodium 137 (133-145) mmol/L Potassium 4.5 (3.3-5.1) mmol/L Chloride 100 (96-108) mmol/L Carbon Dioxide 24 (22-30) mmol/L BUN 39 H (8-23) mg/dl Creatinine 1.4 H (0.6-1.1) mg/dl Glucose 99 (70-105) mg/dL Calcium 10.0 (8.6-10.4) mg/dl Adrenal panel 07/29/18 Range/Units 03:26 Sodium 137 (133-145) mmol/L Potassium 4.5 (3.3-5.1) mmol/L Chloride 100 (96-108) mmol/L Carbon Dioxide 24 (22-30) mmol/L BUN 39 H (8-23) mg/dl Creatinine 1.4 H (0.6-1.1) mg/dl Glucose 99 (70-105) mg/dL Calcium 10.0 (8.6-10.4) mg/dl Assessment and Plan (1) Complication due to device, implant, or graft Status: Acute Current Visit: Yes - Narrative A/P Narrative: Assessment: Satisfactory progress from wound Care point of view. Needs HBOT for at least another 5 treatments. Needs evaluation for SEDATION VACATION and Medication adjustment. Plan: Continue wound care. Would like to continue HBOT. Will request Pulmonary / ICU and Sleep evaluation. Consult requested from Dr. Wang, History Professor. - Time Spent With Patient Total time spent is greater than 50% in coordination of care (as documented) at patient's floor/unit and/or counseling patient: 25 - 35 minutes
[2018-07-29] MEDS: POLYETHYLENE GLYCOL 3350 17 GM PACKET PO PRN (16:40)
[2018-07-29] MEDS: DOCUSATE SODIUM 100 MG CAPSULE PO PRN (17:09)
[2018-07-29] MEDS: OLANZapine 5 MG TABLET PO SCH (20:04)
[2018-07-29] MEDS: SIMVASTATIN 10 MG TABLET PO SCH (20:05)
[2018-07-30] MEDS: CEFEPIME 2 GM VIAL IV SCH ×3 (05:19→23:41)
[2018-07-30] MEDS: 0.9 % SODIUM CHLORIDE 10 ML SYRINGE IV SCH ×5 (05:20→20:31)
[2018-07-30 06:00] LABS: Blood Urea Nitrogen 40 mg/dl (8-23)
[2018-07-30] MEDS: LEVOTHYROXINE 75 MCG TABLET PO SCH (08:04)
--- NOTE | 2018-07-30 08:08 | Internal Med Progress Note ---
Medical - PN: Subj Patient information: Note initiated : 07/30/18 at 8:05 am Service Date, if different from initiated Date: [] Patient: Yanni Topete a 67 y/o F admitted on 07/18/18 for Rt Ankle Wound. Chief Complaint: [] Interval history: Ms. Topete is a 67 year old F with history of bipolar disorder, chronic kidney disease presents to the hospital today for evaluation of her right lower extremity wound. The patient had history of fall in May, at which time she twisted her ankle and developed a complex fracture of the right ankle. She was operated by Dr. Velasquez in May and underwent an open reduction and internal fixation of the fracture. The patient was discharged subsequently. The patient apparently was managing her right lower extremity wound and blister however the patient's wound got progressively worse. There was some pussy discharge and she was seen in the wound care clinic today. In the wound care clinic on speaking with the wound care physician there was pus, and the wound l ooked infected. The patient was therefore sent to the emergency room for further evaluation. In the emergency room the patient is afebrile, hemodynamically stable, labs are stable kidney function is at baseline at around 1.3 -1.4. Patient has minimal pain on the right lower extremity with movement otherwise no other acute complaints or concerns. The wound care physician is the primary provider managing this patient, patient to be taken to the OR for cleanup and debridement by Dr. Velasquez tomorrow morning. Hospitalist has been consulted to help manage the logistics of inpatient stay. Wound care physician has been consulted by the wound care provider. 07/19 Pt seen examined, no acute issues reported labs stable awaitin 07/20 Somewhat poor sleep but otherwise no complaints. Sitting in bed comfortably eating breakfast. No new pains or complaints. Had I&D and removal of hardware yesterday. 07/21 Okay. No overnight events. Had BMs last night after laxatives given. Boot dressings in place on the right ankle. No new complaints 07/22 No overnight events. Feeling better. No new complaints. Seen by wound care this morning, wound appears to need further debridement. 07/23-patient doing better. Due for surgical debridement in 24 hours. No overnight fever chills. On antibiotic coverage as per ID specialist. Ongoing wound care by Dr. Mcdonald. No concerns per staff 07/24- patient status post surgical debridement/thickness skin graft placement by Dr. mahmood today. Doing well postoperatively. Ongoing nutritional support/antibiotic coverage as per ID. No overnight fever chills or concerns per staff. Intermittently confused. Complains of postoperative pain 07/25-patient undergoing hyperbaric oxygen treatment/wound care. On antibiotic coverage as per ID. Status post debridement. Moderately confused and disoriented. Ongoing physical therapy/nutritional support 07/26-doing well. Undergoing hyperbaric oxygen treatment. No overnight fever chills nausea vomiting. No other concerns per staff. Continuing antibiotics and wound care along with PT OT 07/27-patient fell during transfer from bed after her knee buckled. Witnessed by staff members. Patient denied any pain following a fall. She continues to participate with therapies. Ongoing hyperbaric treatment/wound care/antibiotic coverage. Remains intermittently confused. No fever chills 07/28 Called by nursing shortly after 12:00am after nurse went in room to get vital signs. Patient with severe hypoxia with sats in the high 40s. Patient unresponsive. Pulse present, tachycardic. Per nurse reports of apnea in the past and has been on oxygen occasionally through the nights and while sleeping. She was immediately placed on Ambu bag and oral airway which brought her sats up to 100%. She was still unresponsive. Transitioned her from bag valve mask to 100% nonrebreather to see how she responded. She started to desat and was placed back on the [id number]. She was given Romazicon 0.2 without response and subsequently given another 0.3. Eventually she started to moan. She did s tart becoming more responsive to pain. She is placed on the nonrebreather mask with oral airway and is able to maintain airway and saturations. Her initial pH was 6.9 and CO2 over 100. She had a repeat ABGs similar and then another one which showed pH 7.25 and a CO2 of 60 when she was more responsive. She continued to become increasing responsive moving extremities spontaneously and moving eyes. No verbalizations. Given her relatively quick response it is likely that nursing was able to catch her before any significant duration of hypoxia took place, to have caused an anoxic brain injury/. Patient's CODE STATUS limited - CPR and resuscitative medications okay but no intubation and if poor prognosis then comfort care. Family was called and spent considerable amount of time discussing case with family. Given her responsiveness patient will be moved to ICU and will be placed on B iPAP. Follow-up ABG prior to being placed on BiPAP showed increasing CO2 again. Home clonazepam held. will need formal sleep study, cpap at night. ----- This morning per nursing she was little more responsive follows some commands and appeared to be answering some questions but it was more garbled speech. Now she is sleeping again and has decreased responsiveness. Saw her she did squeeze my hand on the right responded to touch the other extremities. Remains nonverbal. pupils are equal round reactive. Unable to get review of system as patient is nonverbal. Family at bedside, including her brother who is her guardian and makes her medical decisions for her, CODE STATUS further clarified and patient is a DO NOT RESUSCITATE 07/29 Patient sitting up in bed this morning awake and talkative. Denies any chest pain coughing shortness of breath nausea. 07/30 No overnight events. Patient able to maintain saturations on supplemental oxygen. Remains confused able to answer some orientation questions with redirection. Review of Systems: denies headache/fever/chills/nausea/vomiting/chest or abdominal pain/cough/dyspnea/diarrhea. Otherwise see above. - Constitutional Vitals: Vital Signs Temp Pulse Resp BP Pulse Ox 98.6 F 68 16 110/74 95 07/30/18 07:32 07/30/18 07:32 07/30/18 07:32 07/30/18 07:32 07/30/18 07:32 Period Temp Pulse Resp BP Sys/Hoyt Pulse Ox Last 24 Hr 96.9 F-98.8 F 68-91 13-27 106-149/61-108 85-98 Intake and Output 07/29/18 07/30/18 07/30/18 21:59 05:59 13:59 Intake Total 700 750 Output Total 1350 552 Balance -650 -552 750 Weight 98.792 kg Intake & Output: Intake & Output 07/29/18 07/30/18 07/30/18 21:59 05:59 13:59 Intake Total 700 750 Output Total 1350 552 Balance -650 -552 750 Weight 98.792 kg Intake: IV 750 Oral 700 Output: Urine Catheter Amount 950 Void Amount 400 550 # of times incontinent of urine 2 Other: Meal Dinner Percent of Meal Consumed 100% Feeding Ability Independent Urine Appearance Clear Uretheral (Pearce) Clear Urine Color Straw Uretheral (Pearce) Straw Exam: General: Awake and alert, No acute Distress Eyes/N/T: EOMI Head/Neck: neck supple, CV: RRR, 1/6 SM Pulm: Clear b/l, no wheezing/rhonchi/rales Abd: soft, nontender, +BS x4 Ext: no clubbing/cyanosis, right ankle dressings and boot in place Neuro: Awake and alert, follows commands, able answer several orientation questions with redirection. Tends to repeat herself. Moves all extremities. Skin: warm/dry Medical - PN: Obj Da - Labs CBC & Chem 7: 07/29/18 03:26 07/30/18 04:00 Labs: Abnormal Lab Results 07/30/18 07/29/18 07/29/18 04:00 03:26 03:26 WBC RBC 3.93 L Hgb 11.6 L RDW [place] # (Auto) Seg Neutrophils % Lymphocytes % VBG Lactic Acid Potassium POC BUN BUN 40 H 39 H Creatinine 1.6 H 1.4 H POC Creatinine Glucose 106 H POC Glucose Alkaline Phosphatase Globulin Triglycerides 07/28/18 07/28/18 07/28/18 08:24 08:24 00:08 WBC RBC 3.94 L Hgb 11.5 L RDW [place] # (Auto) Seg Neutrophils % 79 H Lymphocytes % 9 L VBG Lactic Acid 2.1 H Potassium 5.3 H POC BUN BUN 37 H Creatinine 1.3 H POC Creatinine Glucose 116 H POC Glucose Alkaline Phosphatase 158 H Globulin Triglycerides 07/28/18 07/28/18 07/27/18 00:08 00:08 08:09 WBC 11.2 H RBC Hgb RDW 14.9 H [place] # (Auto) 1.0 H Seg Neutrophils % Lymphocytes % VBG Lactic Acid Potassium POC BUN 39 H BUN 37 H 33 H Creatinine 1.4 H 1.3 H POC Creatinine 1.4 H Glucose 307 H 155 H POC Glucose 300 H Alkaline Phosphatase 167 H 169 H Globulin 4.1 H Triglycerides 172 H 07/27/18 08:09 WBC RBC Hgb RDW [place] # (Auto) Seg Neutrophils % Lymphocytes % 13 L VBG Lactic Acid Potassium POC BUN BUN Creatinine POC Creatinine Glucose POC Glucose Alkaline Phosphatase Globulin Triglycerides Meds: Medications Hydrocodone Bitart/Acetaminophen (Reserve 7.5/325mg) 1 - 2 tab PO Q4HP PRN PRN Reason: Pain Cefepime HCl (Maxipime) 2 gm IV Q8H [facility]; Protocol Last Admin: 07/30/18 05:19 Dose: 2 gm Documented by: Clonazepam (Klonopin) 0.5 mg PO BIDP PRN PRN Reason: Anxiety Last Admin: 07/29/18 06:40 Dose: 0.5 mg Documented by: Docusate Sodium (Colace) 100 mg PO BID PRN PRN Reason: Constipation Last Admin: 07/29/18 17:09 Dose: 100 mg Documented by: Famotidine (Pepcid) 20 mg PO BID [facility] Last Admin: 07/29/18 20:05 Dose: 20 mg Documented by: Heparin Sodium (Porcine) (Heparin) 5,000 unit SQ Q12 [facility] Last Admin: 07/29/18 20:03 Dose: 5,000 unit Documented by: Heparin Sodium (Porcine) (Heparin Flush) 2 ml IV Q12 [facility] Last Admin: 07/30/18 05:20 Dose: 2 ml Documented by: Lactobacillus Rhamnosus (Culturelle) 1 cap PO DAILY [facility] Last Admin: 07/29/18 08:31 Dose: 1 cap Documented by: Levothyroxine Sodium (Synthroid) 75 mcg PO QAMAC [facility] Last Admin: 07/30/18 08:04 Dose: 75 mcg Documented by: Lorazepam (Ativan) 1 mg IV Q2HP PRN PRN Reason: Seizure Activity or withdrawal Naloxone HCl (Narcan) 0.1 mg IV Q2MIN PRN PRN Reason: Opiate Reversal Oxcarbazepine [ Trileptal] 600 Mg Tab 300 mg PO BID [facility] Last Admin: 07/29/18 20:21 Dose: 300 mg Documented by: Olanzapine (Zyprexa) 20 mg PO HS [facility] Last Admin: 07/29/18 20:04 Dose: 20 mg Documented by: Ondansetron HCl (Zofran) 4 mg IV Q6HP PRN PRN Reason: Nausea And Vomiting Polyethylene Glycol (Miralax) 17 gm PO DAILY PRN PRN Reason: Constipation Last Admin: 07/29/18 16:40 Dose: 17 gm Documented by: Quetiapine Fumarate (Seroquel) 50 mg PO BID [facility] Last Admin: 07/29/18 20:04 Dose: 50 mg Documented by: Simvastatin (Zocor) 10 mg PO HS [facility] Last Admin: 07/29/18 20:05 Dose: 10 mg Documented by: Sodium Chloride (Saline Flush) 10 ml IV UD PRN PRN Reason: FLUSH Sodium Chloride (Saline Flush) 10 ml IV Q8 [facility] Last Admin: 07/30/18 05:20 Dose: 10 ml Documented by: Sodium Chloride (Saline Flush) 10 ml IV Q12 [facility] Last Admin: 07/29/18 22:52 Dose: 10 ml Documented by: Trimethoprim/Sulfamethoxazole (Bactrim Ds) 1 tab PO BID [facility]; Protocol Last Admin: 07/29/18 20:05 Dose: 1 tab Documented by: Medical - PN: A/P - Time Spent With Patient Total time spent is greater than 50% in coordination of care (as documented) at patient's floor/unit and/or counseling patient: - Narrative A/P Narrative: A/P: *Hypoxic/hypercapnic Resp failure: 2/2 medications and underlying sleep apnea -rapid response night of 07/27 with severely reduced O2 sats on routine VS, d uration of hypoxia unknown -Improved -benzo's held initially, now on prn basis -off Bipap, will need CPAP nightly and will need outpt sleep study *Encephalopathy, Metabolic: Improved, but concerned she may have permanent further cognitive impairment (superimposed on underlying dementia) -CT brain no acute, but with mild cerebral atrophy and white matter ischemic dz. *Dementia: per family has been declining over past year, memory issues and repeating herself. *Post operative infection/osteo right ankle: s/p I&D & hardware removal (07/19) -repeat I&D (07/24) *Right lower extremity infected Ulcer: -Wound car per Dr Velasquez and Dr Keane. HBO -WC with Proteus/Enterobacter/Acineo baumannii -Antibiotic Management per Dr Winter ["Recommendations: - Continue IV Cefepime 2 gm q8 hrs through PICC line - will add Bactrim-DS 1 tablet bid for coverage against Achromobacter xylosidans - Pt has a drug interaction between Seroquel and Ciprofloxacin. I spoke with Viki Lovett NP (mental health provider) who will plan to taper her Seroquel after discharge. The discharging nurse to inform Viki Lovett so that pt could have a mental health follow up appt. - I will follow the patient in ID clinic in 4 weeks and switch to PO antibiotics based on clinical response and if she has been off Seroquel. - Date and time of follow up appt as follows: 08/23/18 at 10 am Follow up labs: ESR, CRP every other week CBC, BMP once weekly] *CKD III: -ble *Bipolar d/o: home meds include clonazepam/zyprexa/seroquel - *Goals of care: Duration of hypoxia unknown. Patient has been in decline over the past year per family ready. -Multiple family discussions taking place over the previous 24hrs. Her CODE STATUS was changed from Limited to DNR -Her brother is her guardian who makes her medical decisions for her *ppx: heparin likely placement at [facility] DO NOT RESUSCITATE Medical - PN: Qual - VTE Deep Vein Thrombosis/Pulmonary Embolism Present on Admission: No
--- NOTE | 2018-07-30 09:18 | XRay Report ---
CLINICAL INFORMATION: PICC placement COMPARISON: 07/28/2018 FINDINGS: Lungs are now clear. No effusions. Cardiomediastinal silhouette and pulmonary vessels are accentuated by leftward rotation but normal. PICC line tip overlies the proximal left subclavian vein. IMPRESSION: No acute disease. PICC line tip overlying the proximal left subclavian vein Interpreted and Authenticated by: Dung Sanchez 07/30/18
[2018-07-30] MEDS: POLYETHYLENE GLYCOL 3350 17 GM PACKET PO PRN (09:56)
[2018-07-30] MEDS: HEPARIN 5,000 UNIT/ML VIAL SQ SCH ×2 (09:57→20:28)
[2018-07-30] MEDS: clonazePAM 1 MG TABLET PO PRN (09:57)
[2018-07-30] MEDS: QUEtiapine 25 MG TABLET PO SCH (09:58)
[2018-07-30] MEDS: SULFAMETHOXAZOLE/TRIMETHOPRIM 1 TABLET PO SCH (09:59)
[2018-07-30] MEDS: LACTOBACILLUS 1 CAPSULE PO SCH (09:59)
[2018-07-30] MEDS: DOCUSATE SODIUM 100 MG CAPSULE PO PRN (10:01)
[2018-07-30] MEDS: Oxcarbazepine [Trileptal] 600 mg Tab PO SCH (10:03)
[2018-07-30] MEDS ORDERED: clonazePAM 1 MG TABLET PO PRN (10:52)
[2018-07-30] MEDS ORDERED: LORazepam 2 MG/ML VIAL IV PRN (10:52)
[2018-07-30] MEDS ORDERED: 0.9 % SODIUM CHLORIDE 10 ML SYRINGE IV PRN (10:52)
[2018-07-30] MEDS ORDERED: ONDANSETRON 4 MG/2 ML VIAL IV PRN (10:52)
[2018-07-30] MEDS ORDERED: DOCUSATE SODIUM 100 MG CAPSULE PO PRN (10:52)
[2018-07-30] MEDS ORDERED: HYDROCODONE/APAP 7.5/325MG TABLET PO PRN (10:52)
[2018-07-30] MEDS ORDERED: POLYETHYLENE GLYCOL 3350 17 GM PACKET PO PRN (10:52)
[2018-07-30] MEDS ORDERED: NALOXONE HCL 0.4 MG/ML VIAL IV PRN (10:52)
[2018-07-30 11:25] LABS: Appearance,Urine CLEAR; Bacteria,Urine 0 /hpf (0); Bilirubin,Urine NEG (NEG); Color,Urine YELLOW; Glucose,Urine (UA) NEGATIVE (NEG); Leukocyte Esterase,Urine NEG /uL (NEG); Mucus,Urine FEW /hpf (0); Protein,Urine 100 mg/dL (NEG); Specific Gravity,Urine 1.014 (1.000-1.035); Urine Blood NEG mg/dL (<0.03); Urine RBC 1 /hpf (0-1); Urine Squamous Epithelial Cell < 1 /hpf (0-4); Urine WBC 2 /hpf (0-4); Urobilinogen,Urine NEG (NEG)
--- NOTE | 2018-07-30 12:13 | Discharge Summary ---
Medical - DS: Prov Patient information: Note initiated : 07/30/18 at 12:12 pm Service Date, if different from initiated Date: [] Patient: Yanni Topete 67 y/o F admitted on 07/18/18 for Rt Ankle Wound. Chief Complaint: [] Date of admission: 07/18/18 14:52 Discharge date: 08/01/18 Primary care physician: Alyssa Garces Consults: 07/18/18 Consult to Physician [CONS] Stat Comment: Consulting Provider: Ronald Merritt Reason For Exam: Physician to Consult 07/18/18 11:59 Consult to Physician [CONS] Stat Comment: Consulting Provider: Chris Mcdonald Reason For Exam: Physician to Consult 07/18/18 14:56 Consult to Infectious Disease [CONS] Stat Comment: Consulting Provider: Velasquez Winter Reason For Exam: Physician to Consult 07/18/18 14:58 Consult to Physician [CONS] Routine Comment: Consulting Provider: Fernando Velasquze Reason For Exam: Physician to Consult 07/18/18 17:39 Consult to Physician [CONS] Routine Comment: Consulting Provider: Anesthesiology Reason For Exam: Anesthesia pre Op evaluation 07/29/18 10:28 Consult to Physician [CONS] Routine Comment: JULIO. Multiple meds. HBO skin graft Ulcer Leg Consulting Provider: Vaughn Stanley Reason For Exam: Pulmonary / Sleep evaluation Medical - DS: Meds - Discharge Medications Prescriptions: Cefepime [Maxipime] 2 gm IV Q8H #1 vial clonazePAM [KlonoPIN] 1 mg PO BID PRN #10 tab PRN Reason: Anxiety HYDROcodone/ACETAMINOPHEN [[place] 5-325 Tablet] 1 each PO Q8H #10 tab QUEtiapine [Seroquel] 100 mg PO BID #40 tab Sulfamethoxazole/Trimethoprim [Bactrim Ds] 1 tab PO BID #35 tab Active and Home Medications: Home Medications Acetaminophen [Tylenol] 650 mg PO Q4-6HP PRN 06/03/18 [History Confirmed 07/30/18 Last Taken 06/02/18] Calcium Carbonate [Tums] 500 mg PO PRN PRN 06/03/18 [History Confirmed 07/30/18 Last Taken 06/02/18] Clotrimazole Crm 1% [Mycelex Crm 1%] 1 dose TOPICAL ONCE 06/03/18 [History Confirmed 07/30/18 Last Taken 06/02/18] Docusate Sodium [Colace] 100 mg PO BID PRN 06/03/18 [History Confirmed 07/30/18 Last Taken 06/02/18] Lactobacillus Acidophilus [Acidophilus Lactobacilli] 1 each PO DAILY 06/03/18 [History Confirmed 07/30/18 Last Taken 06/02/18] Levothyroxine [Synthroid] 75 mcg PO DAILY 06/03/18 [History Confirmed 07/30/18 Last Taken 06/02/18] Lisinopril [Zestril] 2.5 mg PO HS 06/03/18 [History Confirmed 07/30/18 Last Taken 06/02/18] OXcarbazepine [Trileptal] 300 mg PO BID 06/03/18 [History Confirmed 07/30/18 Last Taken 06/03/18 08:50] Polyethylene Glycol 3350 [Miralax] 17 gm PO DAILY PRN 06/03/18 [History Confirmed 07/30/18 Last Taken 06/02/18] Pravastatin [Pravachol] 20 mg PO HS 06/03/18 [History Confirmed 07/30/18 Last Taken 06/02/18] Ranitidine HCl [Acid Cyber Special Agent] 150 mg PO BID 06/03/18 [History Confirmed 07/30/18 Last Taken 06/03/18 08:50] clonazePAM [KlonoPIN] 1 mg PO TID 06/03/18 [History Confirmed 07/30/18 Last Taken 06/02/18] oxyCODONE HCL [Oxycodone HCl] 5 mg PO TIDP PRN 06/03/18 [History Confirmed 07/30/18 Last Taken 06/03/18 08:50] Cephalexin [Keflex] 500 mg PO QID 07/18/18 [History Confirmed 07/18/18 Last Taken Unknown] Emollient Base [Emollient] 500 gm TP PRN PRN 07/18/18 [History Confirmed 07/18/18 Last Taken Unknown] Sodium Fluoride [Prevident 5000] 100 ml DT BID 07/18/18 [History Confirmed 07/30/18 Last Taken Unknown] OLANZapine [Zyprexa] 10 mg PO DAILY 07/20/18 [History Confirmed 07/30/18 Last Taken Unknown] OLANZapine [Zyprexa] 20 mg PO HS 07/20/18 [History Confirmed 07/30/18 Last Taken Unknown] QUEtiapine [SEROquel] 50 mg PO BID 07/20/18 [History Confirmed 07/30/18 Last Taken Unknown] QUEtiapine [SEROquel] 300 mg PO HS 07/20/18 [History Confirmed 07/30/18 Last Taken Unknown] azithromycin 250 mg tablet 500 mg PO ONCE 07/30/18 [History Confirmed 07/30/18 Last Taken Unknown] oseltamivir 75 mg capsule 75 mg PO QDAY 07/30/18 [History Confirmed 07/30/18 Last Taken Unknown] sucralfate 1 gram tablet 2 g PO BID 07/30/18 [History Confirmed 07/30/18 Last Taken Unknown] Home Medications Acetaminophen [Tylenol] 650 mg PO Q4-6HP PRN 06/03/18 [History Confirmed 07/30/18 Last Taken 06/02/18] Calcium Carbonate [Tums] 500 mg PO PRN PRN 06/03/18 [History Confirmed 07/30/18 Last Taken 06/02/18] Clotrimazole Crm 1% [Mycelex Crm 1%] 1 dose TOPICAL ONCE 06/03/18 [History Confirmed 07/30/18 Last Taken 06/02/18] Docusate Sodium [Colace] 100 mg PO BID PRN 06/03/18 [History Confirmed 07/30/18 Last Taken 06/02/18] Lactobacillus Acidophilus [Acidophilus Lactobacilli] 1 each PO DAILY 06/03/18 [History Confirmed 07/30/18 Last Taken 06/02/18] Levothyroxine [Synthroid] 75 mcg PO DAILY 06/03/18 [History Confirmed 07/30/18 Last Taken 06/02/18] Lisinopril [Zestril] 2.5 mg PO HS 06/03/18 [History Confirmed 07/30/18 Last Taken 06/02/18] OXcarbazepine [Trileptal] 300 mg PO BID 06/03/18 [History Confirmed 07/30/18 Last Taken 06/03/18 08:50] Polyethylene Glycol 3350 [Miralax] 17 gm PO DAILY PRN 06/03/18 [History Confirmed 07/30/18 Last Taken 06/02/18] Pravastatin [Pravachol] 20 mg PO HS 06/03/18 [History Confirmed 07/30/18 Last Taken 06/02/18] Ranitidine HCl [Acid Cyber Special Agent] 150 mg PO BID 06/03/18 [History Confirmed 07/30/18 Last Taken 06/03/18 08:50] Emollient Base [Emollient] 500 gm TP PRN PRN 07/18/18 [History Confirmed 07/18/18 Last Taken Unknown] Sodium Fluoride [Prevident 5000] 100 ml DT BID 07/18/18 [History Confirmed 07/30/18 Last Taken Unknown] OLANZapine [Zyprexa] 20 mg PO HS 07/20/18 [History Confirmed 07/30/18 Last Taken Unknown] Cefepime [Maxipime] 2 gm IV Q8H #1 vial 07/30/18 [Rx Last Taken Unknown] clonazePAM [KlonoPIN] 1 mg PO BID PRN #10 tab 07/30/18 [Rx Last Taken Unknown] HYDROcodone/ACETAMINOPHEN [[place] 5-325 Tablet] 1 each PO Q8H #10 tab 08/01/18 [Rx Last Taken Unknown] QUEtiapine [Seroquel] 100 mg PO BID #40 tab 08/01/18 [Rx Last Taken Unknown] Sulfamethoxazole/Trimethoprim [Bactrim Ds] 1 tab PO BID #35 tab 08/01/18 [Rx Last Taken Unknown] Medical - DS: Hosp Hospital course: Ms. Topete is a 67 year old F with history of bipolar disorder, chronic kidney disease presents to the hospital today for evaluation of her right lower extremity wound. The patient had history of fall in May, at which time she twisted her ankle and developed a complex fracture of the right ankle. She was operated by Dr. Velasquez in May and underwent an open reduction and internal fixation of the fracture. The patient was discharged subsequently. The patient apparently was managing her right lower extremity wound and blister however the patient's wound got progressively worse. There was some pussy discharge and she was seen in the wound care clinic today. In the wound care clinic on speaking with the wound care physician there was pus, and the wound looked infected. The patient was therefore sent to the emergency room for further evaluation. In the emergency room the patient is afebrile, hemodynamically stable, labs are stable kidney function is at baseline at around 1.3 -1.4. Patient has minimal pain on the right lower extremity with movement otherwise no other acute complaints or concerns. The wound care physician is the primary provider managing this patient, patient to be taken to the OR for cleanup and debridement by Dr. Velasquez tomorrow morning. Hospitalist has been consulted to help manage the logistics of inpatient stay. Wound care physician has been consulted by the wound care provider. 07/19 Pt seen examined, no acute issues reported labs stable awaitin 07/20 Somewhat poor sleep but otherwise no complaints. Sitting in bed comfortably ea ting breakfast. No new pains or complaints. Had I&D and removal of hardware yesterday. 07/21 Okay. No overnight events. Had BMs last night after laxatives given. Boot dressings in place on the right ankle. No new complaints 07/22 No overnight events. Feeling better. No new complaints. Seen by wound care this morning, wound appears to need further debridement. 07/23-patient doing better. Due for surgical debridement in 24 hours. No overnight fever chills. On antibiotic coverage as per ID specialist. Ongoing wound care by Dr. Mcdonald. No concerns per staff 07/24- patient status post surgical debridement/thickness skin graft placement by Dr. timoteo richard. Doing well postoperatively. Ongoing nutritional support/antibiotic coverage as per ID. No overnight fever chills or concerns per staff. Intermittently confused. Complains of postoperative pain 07/25-patient undergoing hyperbaric oxygen treatment/wound care. On antibiotic coverage as per ID. Status post debridement. Moderately confused and disoriented. Ongoing physical therapy/nutritional support 07/26-doing well. Undergoing hyperbaric oxygen treatment. No overnight fever chills nausea vomiting. No other concerns per staff. Continuing antibiotics and wound care along with PT OT 07/27-patient fell during transfer from bed after her knee buckled. Witnessed by staff members. Patient denied any pain following a fall. She continues to participate with therapies. Ongoing hyperbaric treatment/wound care/antibiotic coverage. Remains intermittently confused. No fever chills 07/28 Called by nursing shortly after 12:00am after nurse went in room to get vital signs. Patient with severe hypoxia with sats in the high 40s. Patient unresponsive. Pulse present, tachycardic. Per nurse reports of apnea in the past and has been on oxygen occasionally through the nights and while sleeping. She was immediately placed on Ambu bag and oral airway which brought her sats up to 100%. She was still unresponsive. Transitioned her from bag valve mask to 100% nonrebreather to see how she responded. She started to desat and was placed back on the [id number]. She was given Romazicon 0.2 without response and subsequently given another 0.3. Eventually she started to moan. She did start becoming more responsive to pain. She is placed on the nonrebreather mask with oral airway and is able to maintain airway and saturations. Her initial pH was 6.9 and CO2 over 100. She had a repeat ABGs similar and then another one which showed pH 7.25 and a CO2 of 60 when she was more responsive. She contin ued to become increasing responsive moving extremities spontaneously and moving eyes. No verbalizations. Given her relatively quick response it is likely that nursing was able to catch her before any significant duration of hypoxia took place, to have caused an anoxic brain injury/. Patient's CODE STATUS limited - CPR and resuscitative medications okay but no intubation and if poor prognosis then comfort care. Family was called and spent considerable amount of time discussing case with family. Given her responsiveness patient will be moved to ICU and will be placed on BiPAP. Follow-up ABG prior to being placed on BiPAP showed increasing CO2 again. Home clonazepam held. will need formal sleep study, cpap at night. ----- This morning per nursing she was little more responsive follows some commands and appeared to be answering some questions but it was more garbled speech. Now she is sleeping again and has decreased responsiveness. Saw her she did squeeze my hand on the right responded to touch the other extremities. Remains nonverbal. pupils are equal round reactive. Unable to get review of system as patient is nonverbal. Family at bedside, including her brother who is her guardian and makes her medical decisions for her, CODE STATUS further clarified and patient is a DO NOT RESUSCITATE 07/29 Patient sitting up in bed this morning awake and talkative. Denies any chest pain coughing shortness of breath nausea. 07/30 No overnight events. Patient able to maintain saturations on supplemental oxygen. Remains confused able to answer some orientation questions with redirection. 07/31 Was little agitated this morning but then calmed down and took her medications. No hostile actions. No acute issues or acute complaints. 08/01 Feeling better. No overnight events. No new complaints. Calm and Cooperative. Discharge diagnosis: Postoperative joint infection right ankle hypoxic respiratory failure Secondary discharge diagnosis: Hypoxic hypercapnic respiratory failure secondary to medications and underlying sleep apnea Anoxic brain injury Encephalopathy superimposed on underlying dementia Dementia CKD stage III Bipolar disorder - Time Spent with Patient Total time spent providing and/or coordinating discharge services: Greater than 30 minutes Medical - DS: Exam - Constitutional Vitals: Vital Signs Temp Pulse Resp BP Pulse Ox 07/30/18 08:01 98.4 F 15 103/87 95 07/30/18 07:32 98.6 F 68 16 110/74 95 07/30/18 07:01 14 110/74 98 07/30/18 06:01 16 101/69 93 07/30/18 05:01 14 149/76 95 07/30/18 04:02 76 15 89 L 07/30/18 04:01 98.6 F 77 16 116/78 94 07/30/18 03:03 71 13 126/77 98 07/30/18 03:00 74 13 126/77 95 07/30/18 02:00 69 14 98 07/30/18 01:00 27 H 95 07/30/18 00:01 82 16 94 07/30/18 00:00 98.6 F 90 22 127/93 95 07/29/18 23:05 75 15 94 07/29/18 23:00 72 16 117/73 93 07/29/18 22:01 74 18 106/61 93 07/29/18 21:02 81 19 119/75 89 L 07/29/18 20:01 98.8 F 87 20 125/108 92 07/29/18 19:19 91 H 24 H 121/69 91 07/29/18 17:01 96.9 F L 20 106/85 93 07/29/18 16:01 96.9 F L 87 20 131/94 93 07/29/18 15:01 78 15 126/71 89 L 07/29/18 14:29 80 24 H 113/82 85 L 07/29/18 14:25 98.6 F 77 16 113/82 92 07/29/18 14:00 95 07/29/18 13:07 97.7 F 07/29/18 12:43 98.6 F 19 109/63 96 Intake and Output 07/29/18 07/30/18 07/30/18 21:59 05:59 13:59 Intake Total 700 1240 Output Total 1350 552 150 Balance -650 -552 1090 Intake: IV 750 Oral 700 490 Output: Urine Catheter Amount 950 Void Amount 400 550 150 # of times incontinent of urine 2 Other: Meal Dinner Breakfast Percent of Meal Consumed 100% 100% Feeding Ability Independent Assist with Tray Set Up Urine Appearance Clear Uretheral (Pearce) Clear Urine Color Straw Uretheral (Pearce) Straw Weight 98.792 kg Medical - DS: Data Labs on day of discharge: Labs from last 24 hours 07/30/18 07/30/18 07/30/18 10:59 10:55 10:55 Sodium Potassium Chloride Carbon Dioxide Anion Gap BUN Creatinine GFR Calculation Glucose Calcium Urine Color Yellow Urine Appearance Clear Urine pH 6.0 Ur Specific [place] 1.014 Urine Protein 100 A Urine Glucose (UA) Negative Urine Ketones Neg Urine Occult Blood Neg Urine Nitrate Neg Urine Bilirubin Neg Urine Urobilinogen Neg Ur Leukocyte Esterase Neg Urine RBC 1 Urine WBC 2 Ur Squamous Epith Cells < 1 Urine Bacteria 0 Urine Mucus Few Ur Culture Indicated? No Ur Random Creatinine 50.6 Ur Random Sodium 75 07/30/18 04:00 Sodium 141 Potassium 4.6 Chloride 107 Carbon Dioxide 22 Anion Gap 12.0 BUN 40 H Creatinine 1.6 H GFR Calculation 33 Glucose 106 H Calcium 9.2 Urine Color Urine Appearance Urine pH Ur Specific [place] Urine Protein Urine Glucose (UA) Urine Ketones Urine Occult Blood Urine Nitrate Urine Bilirubin Urine Urobilinogen Ur Leukocyte Esterase Urine RBC Urine WBC Ur Squamous Epith Cells Urine Bacteria Urine Mucus Ur Culture Indicated? Ur Random Creatinine Ur Random Sodium Medical - DS: A/P - Patient/Caregiver Discharge Instructions Activity: as per physical therapy Diet: D[facility] Additional Instructions: Discharge Instructions: Patient is WBAT per RICA Goetz for Dr Velasquez. Please call and schedule follow up appointment with Dr Velasquez. Schedule follow up with Dr Mcdonald at the wound care center at [facility] in 1 week. Schedule sleep study as soon as possible. Schedule appointment with pulmonology in 1-2 weeks. Patient may need oxygen while sleeping at the discharge facility. May use 1-2 liters as needed to maintain oxygen sats greater than 90%. Please check pulse ox every 1-hour while sleeping for first night, if she maintains greater than 90% then this can be discontinued and oxygen checked with routine vitals. Schedule every other week ESR/CRP per Dr. Winter Schedule weekly CBC/BMP per Dr. Winter Continue IV cefepime 2 g every 8 through August 21, at which time PICC line can be discontinued. PICC line care per protocol. Further oral antibiotics to be determined by Dr. Winter. Prescriptions: Cefepime [Maxipime] 2 gm IV Q8H #1 vial clonazePAM [KlonoPIN] 1 mg PO BID PRN #10 tab PRN Reason: Anxiety HYDROcodone/ACETAMINOPHEN [[place] 5-325 Tablet] 1 each PO Q8H #10 tab QUEtiapine [Seroquel] 100 mg PO BID #40 tab Sulfamethoxazole/Trimethoprim [Bactrim Ds] 1 tab PO BID #35 tab Other Amb Orders: OT Discharge Order Location: None Selected Physical Therapy at Discharge - General Location: None Selected - Follow up Plan Follow up with: Velasquez Winter MD [Physician] - 08/23/18 9:45 am Fernando Velasquez MD [Physician] - (Please call and schedule a surgical follow up.) Chris Mcdonald MD [Physician] - (Please call and schedule a follow up.) Alyssa Garces ARNP [Primary Care Provider] - (Please call and schedule a follow up.) Vaughn Stanley MD [Physician] - (Please call and schedule an appointment.) Disposition: Xfer LT Prognosis: Fair Rehab Potential: Fair I certify that the patient requires SNF services: Yes Overall status at discharge: patient is progressing back to baseline Medical - DS: Qual - VTE Deep Vein Thrombosis/Pulmonary Embolism Present on Admission: No
--- NOTE | 2018-07-30 17:16 | General Surgery Progress Note ---
Subjective Patient reports: no new complaints Narrative: Note initiated : 07/30/18 at 5:13 pm Service Date, if different from initiated Date: [] Patient: Yanni Topete 67 y/o F admitted on 07/18/18 for Rt Ankle Wound. Chief Complaint: [] Patient seen on rounds with Stefanie home care scheduler nurse and Liz POLYSOMNOGRAPHY TECHNICIAN nurse. Progress reviewed with Dr. White. hospitalist Physician. Overall patient had an unremarkable day today. VSS. Back to base line with ADLs. OOB to chair. Ate food uneventfully. Clear speech and variable attention span. Noted plans to transfer patient to higher level of care at [facility] in [place]. Objective Temp Pulse Resp BP Pulse Ox 98.2 F 95 H 18 126/87 95 07/30/18 15:58 07/30/18 15:58 07/30/18 15:58 07/30/18 15:58 07/30/18 15:58 No changes in ALEX. Dressings Right foot and thigh are CDI. No NV deficits. Skin graft adhering well to wound base Right medial leg. Wounds examined yesterday with wound nurse. - Additional Data Intake & Output - Last 24 hours: Intake & Output 07/28/18 07/29/18 07/30/18 07/31/18 05:59 05:59 05:59 05:59 Intake Total 0605 831 7908 1240 Output Total 2775 2617 150 Balance 1360 -2195 -537 1090 Weight 214 lb 11.2 oz 217 lb 12.8 oz 217 lb 12.8 oz - Labs 07/29/18 03:26 07/30/18 04:00 Diabetes panel 07/30/18 Range/Units 04:00 Sodium 141 (133-145) mmol/L Potassium 4.6 (3.3-5.1) mmol/L Chloride 107 (96-108) mmol/L Carbon Dioxide 22 (22-30) mmol/L BUN 40 H (8-23) mg/dl Creatinine 1.6 H (0.6-1.1) mg/dl Glucose 106 H (70-105) mg/dL Calcium 9.2 (8.6-10.4) mg/dl Calcium panel 07/30/18 Range/Units 04:00 Calcium 9.2 (8.6-10.4) mg/dl Pituitary panel 07/30/18 Range/Units 04:00 Sodium 141 (133-145) mmol/L Potassium 4.6 (3.3-5.1) mmol/L Chloride 107 (96-108) mmol/L Carbon Dioxide 22 (22-30) mmol/L BUN 40 H (8-23) mg/dl Creatinine 1.6 H (0.6-1.1) mg/dl Glucose 106 H (70-105) mg/dL Calcium 9.2 (8.6-10.4) mg/dl Adrenal panel 07/30/18 Range/Units 04:00 Sodium 141 (133-145) mmol/L Potassium 4.6 (3.3-5.1) mmol/L Chloride 107 (96-108) mmol/L Carbon Dioxide 22 (22-30) mmol/L BUN 40 H (8-23) mg/dl Creatinine 1.6 H (0.6-1.1) mg/dl Glucose 106 H (70-105) mg/dL Calcium 9.2 (8.6-10.4) mg/dl Assessment and Plan (1) Complication due to device, implant, or graft Status: Acute Current Visit: Yes - Narrative A/P Narrative: Assessment: Satisfactory post operative progress from wound care and wound healing point of view. Episode of JULIO with code white and O2 desaturation yesterday. NO clinical sequelae. signal worker helper and SW arrangements to transfer patient to higher level of care noted. Plan: OK to transfer to rehab facility for higher level of care. On going wound care at the receiving hospital or facility as per the instructions of surgeon on case. I WILL BE HAPPY TO SPEAK WITH ANY NURSE OR PHYSICIAN AT THE RECEIVING FACILITY AND ANSWER ANY WOUND RELATED QUESTIONS. Dr. Chris Mcdonald. [facility]. . - Time Spent With Patient Total time spent is greater than 50% in coordination of care (as documented) at patient's floor/unit and/or counseling patient: 15 - 24 minutes
[2018-07-30] MEDS: OXCARBAZEPINE 600 MG PO SCH (20:29)
[2018-07-30] MEDS: FAMOTIDINE 20 MG TABLET PO SCH (20:30)
[2018-07-30] MEDS: SIMVASTATIN 10 MG TABLET PO SCH (20:30)
[2018-07-30] MEDS: OLANZapine 5 MG TABLET PO SCH (20:31)
[2018-07-30] MEDS ORDERED: SULFAMETHOXAZOLE/TRIMETHOPRIM 1 TABLET PO SCH (21:00)
[2018-07-30] MEDS ORDERED: FAMOTIDINE 20 MG TABLET PO SCH (21:00)
[2018-07-30] MEDS ORDERED: QUEtiapine 25 MG TABLET PO SCH (21:00)
[2018-07-31 06:05] LABS: Blood Urea Nitrogen 39 mg/dl (8-23)
[2018-07-31] MEDS: 0.9 % SODIUM CHLORIDE 10 ML SYRINGE IV SCH ×5 (06:14→22:11)
[2018-07-31] MEDS: CEFEPIME 2 GM VIAL IV SCH ×3 (06:14→22:10)
[2018-07-31] MEDS: LEVOTHYROXINE 75 MCG TABLET PO SCH (07:47)
--- NOTE | 2018-07-31 09:00 | Internal Med Progress Note ---
Medical - PN: Subj Patient information: Note initiated : 07/31/18 at 8:53 am Service Date, if different from initiated Date: [] Patient: Yanni Topete a 67 y/o F admitted on 07/18/18 for Rt Ankle Wound. Chief Complaint: [] Interval history: Ms. Topete is a 67 year old F with history of bipolar disorder, chronic kidney disease presents to the hospital today for evaluation of her right lower extremity wound. The patient had history of fall in May, at which time she twisted her ankle and developed a complex fracture of the right ankle. She was operated by Dr. Velasquez in May and underwent an open reduction and internal fixation of the fracture. The patient was discharged subsequently. The patient apparently was managing her right lower extremity wound and blister however the patient's wound got progressively worse. There was some pussy discharge and she was seen in the wound care clinic today. In the wound care clinic on speaking with the wound care physician there was pus, and the wound l ooked infected. The patient was therefore sent to the emergency room for further evaluation. In the emergency room the patient is afebrile, hemodynamically stable, labs are stable kidney function is at baseline at around 1.3 -1.4. Patient has minimal pain on the right lower extremity with movement otherwise no other acute complaints or concerns. The wound care physician is the primary provider managing this patient, patient to be taken to the OR for cleanup and debridement by Dr. Velasquez tomorrow morning. Hospitalist has been consulted to help manage the logistics of inpatient stay. Wound care physician has been consulted by the wound care provider. 07/19 Pt seen examined, no acute issues reported labs stable awaitin 07/20 Somewhat poor sleep but otherwise no complaints. Sitting in bed comfortably eating breakfast. No new pains or complaints. Had I&D and removal of hardware yesterday. 07/21 Okay. No overnight events. Had BMs last night after laxatives given. Boot dressings in place on the right ankle. No new complaints 07/22 No overnight events. Feeling better. No new complaints. Seen by wound care this morning, wound appears to need further debridement. 07/23-patient doing better. Due for surgical debridement in 24 hours. No overnight fever chills. On antibiotic coverage as per ID specialist. Ongoing wound care by Dr. Mcdonald. No concerns per staff 07/24- patient status post surgical debridement/thickness skin graft placement by Dr. mahmood today. Doing well postoperatively. Ongoing nutritional support/antibiotic coverage as per ID. No overnight fever chills or concerns per staff. Intermittently confused. Complains of postoperative pain 07/25-patient undergoing hyperbaric oxygen treatment/wound care. On antibiotic coverage as per ID. Status post debridement. Moderately confused and disoriented. Ongoing physical therapy/nutritional support 07/26-doing well. Undergoing hyperbaric oxygen treatment. No overnight fever chills nausea vomiting. No other concerns per staff. Continuing antibiotics and wound care along with PT OT 07/27-patient fell during transfer from bed after her knee buckled. Witnessed by staff members. Patient denied any pain following a fall. She continues to participate with therapies. Ongoing hyperbaric treatment/wound care/antibiotic coverage. Remains intermittently confused. No fever chills 07/28 Called by nursing shortly after 12:00am after nurse went in room to get vital signs. Patient with severe hypoxia with sats in the high 40s. Patient unresponsive. Pulse present, tachycardic. Per nurse reports of apnea in the past and has been on oxygen occasionally through the nights and while sleeping. She was immediately placed on Ambu bag and oral airway which brought her sats up to 100%. She was still unresponsive. Transitioned her from bag valve mask to 100% nonrebreather to see how she responded. She started to desat and was placed back on the [id number]. She was given Romazicon 0.2 without response and subsequently given another 0.3. Eventually she started to moan. She did s tart becoming more responsive to pain. She is placed on the nonrebreather mask with oral airway and is able to maintain airway and saturations. Her initial pH was 6.9 and CO2 over 100. She had a repeat ABGs similar and then another one which showed pH 7.25 and a CO2 of 60 when she was more responsive. She continued to become increasing responsive moving extremities spontaneously and moving eyes. No verbalizations. Given her relatively quick response it is likely that nursing was able to catch her before any significant duration of hypoxia took place, to have caused an anoxic brain injury/. Patient's CODE STATUS limited - CPR and resuscitative medications okay but no intubation and if poor prognosis then comfort care. Family was called and spent considerable amount of time discussing case with family. Given her responsiveness patient will be moved to ICU and will be placed on B iPAP. Follow-up ABG prior to being placed on BiPAP showed increasing CO2 again. Home clonazepam held. will need formal sleep study, cpap at night. ----- This morning per nursing she was little more responsive follows some commands and appeared to be answering some questions but it was more garbled speech. Now she is sleeping again and has decreased responsiveness. Saw her she did squeeze my hand on the right responded to touch the other extremities. Remains nonverbal. pupils are equal round reactive. Unable to get review of system as patient is nonverbal. Family at bedside, including her brother who is her guardian and makes her medical decisions for her, CODE STATUS further clarified and patient is a DO NOT RESUSCITATE 07/29 Patient sitting up in bed this morning awake and talkative. Denies any chest pain coughing shortness of breath nausea. 07/30 No overnight events. Patient able to maintain saturations on supplemental oxygen. Remains confused able to answer some orientation questions with redirection. 07/31 Was little agitated this morning but then calmed down and took her medications. No hostile actions. No acute issues or acute complaints. Review of Systems: denies headache/fever/chills/nausea/vomiting/chest or abdominal pain/cough/dyspnea/diarrhea. Otherwise see above. - Constitutional Vitals: Vital Signs Temp Pulse Resp BP Pulse Ox 98.1 F 93 H 22 134/84 96 07/31/18 02:57 07/31/18 02:57 07/31/18 02:57 07/31/18 02:57 07/31/18 02:57 Period Temp Pulse Resp BP Sys/Hoyt Pulse Ox Last 24 Hr 97.7 F-98.7 F 76-95 16- 100-134/58-87 95-96 Intake and Output 07/30/18 07/31/18 07/31/18 21:59 05:59 13:59 Intake Total 450 Balance 450 Weight 96.162 kg Intake & Output: Intake & Output 07/30/18 07/31/18 07/31/18 21:59 05:59 13:59 Intake Total 450 Balance 450 Weight 96.162 kg Intake: Oral 450 Other: Stool Size Smear Stool Color Brown Stool Consistency Formed Exam: General: Awake and alert, No acute Distress Eyes/N/T: EOMI Head/Neck: neck supple, CV: RRR, 1/6 SM Pulm: Clear b/l, no wheezing/rhonchi/rales Abd: soft, nontender, +BS x4 Ext: no clubbing/cyanosis, right ankle dressings and boot in place Neuro: Awake and alert, follows commands, nodding yes and no to questions today not verbalizing. Moves all extremities Skin: warm/dry Medical - PN: Obj Da - Labs CBC & Chem 7: 07/29/18 03:26 07/31/18 04:30 Labs: Abnormal Lab Results 07/31/18 07/30/18 07/30/18 04:30 10:59 04:00 RBC Hgb Seg Neutrophils % Lymphocytes % Potassium Carbon Dioxide 19 L BUN 39 H 40 H Creatinine 1.5 H 1.6 H Glucose 111 H 106 H Alkaline Phosphatase Urine Protein 100 A 07/29/18 07/29/18 07/28/18 03:26 03:26 08:24 RBC 3.93 L Hgb 11.6 L Seg Neutrophils % Lymphocytes % Potassium 5.3 H Carbon Dioxide BUN 39 H 37 H Creatinine 1.4 H 1.3 H Glucose 116 H Alkaline Phosphatase 158 H Urine Protein 07/28/18 08:24 RBC 3.94 L Hgb 11.5 L Seg Neutrophils % 79 H Lymphocytes % 9 L Potassium Carbon Dioxide BUN Creatinine Glucose Alkaline Phosphatase Urine Protein Meds: Medications Hydrocodone Bitart/Acetaminophen (Donaldson 7.5/325mg) 1 - 2 tab PO Q4HP PRN PRN Reason: Pain Cefepime HCl (Maxipime) 2 gm IV Q8H [facility]; Protocol Last Admin: 07/31/18 06:14 Dose: 2 gm Documented by: Clonazepam (Klonopin) 0.5 mg PO BIDP PRN PRN Reason: Anxiety Last Admin: 07/30/18 19:39 Dose: 0.5 mg Documented by: Docusate Sodium (Colace) 100 mg PO BIDP PRN PRN Reason: Constipation Famotidine (Pepcid) 20 mg PO QHS [facility] Last Admin: 07/30/18 20:30 Dose: 20 mg Documented by: Heparin Sodium (Porcine) (Heparin) 5,000 unit SQ Q12 [facility] Last Admin: 04/16/19 20:28 Dose: Not Given Documented by: Heparin Sodium (Porcine) (Heparin Flush) 2 ml IV Q12 [facility] Last Admin: 07/30/18 20:28 Dose: 2 ml Documented by: Lactobacillus Rhamnosus (Culturelle) 1 cap PO DAILY [facility] Levothyroxine Sodium (Synthroid) 75 mcg PO QAMAC [facility] Last Admin: 07/31/18 07:47 Dose: 75 mcg Documented by: Lorazepam (Ativan) 1 mg IV Q2HP PRN PRN Reason: Seizure Activity or withdrawal Naloxone HCl (Narcan) 0.1 mg IV Q2MIN PRN PRN Reason: Opiate Reversal Oxcarbazepine [ Trileptal] 600 Mg Tablet 300 mg PO BID [facility] Last Admin: 07/30/18 20:29 Dose: 300 mg Documented by: Olanzapine (Zyprexa) 20 mg PO HS [facility] Last Admin: 07/30/18 20:31 Dose: 20 mg Documented by: Ondansetron HCl (Zofran) 4 mg IV Q6HP PRN PRN Reason: Nausea And Vomiting Polyethylene Glycol (Miralax) 17 gm PO DAILY PRN PRN Reason: Constipation Quetiapine Fumarate (Seroquel) 50 mg PO BID [facility] Last Admin: 07/30/18 20:30 Dose: 50 mg Documented by: Simvastatin (Zocor) 10 mg PO HS [facility] Last Admin: 07/30/18 20:30 Dose: 10 mg Documented by: Sodium Chloride (Saline Flush) 10 ml IV UD PRN PRN Reason: FLUSH Sodium Chloride (Saline Flush) 10 ml IV Q8 [facility] Last Admin: 07/31/18 06:14 Dose: 10 ml Documented by: Sodium Chloride (Saline Flush) 10 ml IV Q12 [facility] Last Admin: 07/30/18 20:10 Dose: 10 ml Documented by: Medical - PN: A/P - Time Spent With Patient Total time spent is greater than 50% in coordination of care (as documented) at patient's floor/unit and/or counseling patient: - Narrative A/P Narrative: A/P: *Hypoxic/hypercapnic Resp failure: 2/2 medications and underlying sleep apnea -rapid response night of 07/27 with severely reduced O2 sats on routine VS, duration of hypoxia unknown -REsolved -benzo's held initially, now on prn basis -off Bipap, will need CPAP nightly and will need outpt sleep study -I believe there was a consult for scheduling assistant (Dr. Stanley) originally placed to clear her for HBO, however she is not undergoing HBO anymore -I did discuss the case with Dr. Stanley regarding a follow-up sleep study' he recommended nocturnal nasal cannula to see how she tolerated that until a formal sleep study and CPAP can be ordered *Encephalopathy, Metabolic: Improved, but concerned she may have permanent further cognitive impairment (superimposed on underlying dementia) from anoxic injury -CT brain no acute, but with mild cerebral atrophy and white matter ischemic dz. *Bipolar d/o: home meds include clonazepam/zyprexa/seroquel *Dementia: per family has been declining over past year, memory issues and repeating herself. *Post operative infection/osteo right ankle: s/p I&D & hardware removal (07/19) -repeat I&D (07/24) *Right lower extremity infected Ulcer: -Wound car per Dr Velasquez and Dr Keane. HBO -WC with Proteus/Enterobacter/Acineo baumannii -Antibiotic Management per Dr Winter ["Recommendations: - Continue IV Cefepime 2 gm q8 hrs through PICC line - will add Bactrim-DS 1 tablet bid for coverage against Achromobacter xylosidans - Pt has a drug interaction between Seroquel and Ciprofloxacin. I spoke with Viki Lovett NP (mental health provider) who will plan to taper her Seroquel after discharge. The discharging nurse to inform Viki Lovett so that pt could have a mental health follow up appt. - I will follow the patient in ID clinic in 4 weeks and switch to PO antibiotics based on clinical response and if she has been off Seroquel. - Date and time of follow up appt as follows: 08/23/18 at 10 am Follow up labs: ESR, CRP every other week CBC, BMP once weekly] *CKD III: - *Goals of care: Duration of hypoxia unknown. Patient has been in decline over the past year per family ready. -Multiple family discussions taking place over the previous 24hrs. Her CODE STATUS was changed from Limited to DNR -Her brother is her guardian who makes her medical decisions for her *ppx: heparin Awaiting Placement DO NOT RESUSCITATE Medical - PN: Qual - VTE Deep Vein Thrombosis/Pulmonary Embolism Present on Admission: No
[2018-07-31] MEDS: QUEtiapine 100 MG TABLET PO SCH ×2 (09:21→22:11)
[2018-07-31] MEDS: LACTOBACILLUS 1 CAPSULE PO SCH (09:22)
[2018-07-31] MEDS: clonazePAM 1 MG TABLET PO PRN ×2 (09:23→19:16)
[2018-07-31] MEDS: OXCARBAZEPINE 600 MG PO SCH ×2 (09:24→22:12)
[2018-07-31] MEDS: HEPARIN 5,000 UNIT/ML VIAL SQ SCH ×2 (09:25→22:16)
--- NOTE | 2018-07-31 15:53 | General Surgery Progress Note ---
Subjective Patient reports: other (Patient now back on MedSurg Floor. Cooperative. Conversational.) Narrative: Note initiated : 07/31/18 at 3:48 pm Service Date, if different from initiated Date: [] Patient: Yanni Topete 67 y/o F admitted on 07/18/18 for Rt Ankle Wound. Chief Complaint: [] Objective Temp Pulse Resp BP Pulse Ox 98.2 F 79 16 128/70 94 07/31/18 15:01 07/31/18 15:01 07/31/18 15:01 07/31/18 15:01 07/31/18 15:01 AVSS. No acute developments or changes in ALEX, since last seen yesterday. Dressings changed and wounds examined with Stefanie HUNTER. Skin graft adhering well. Donor sit healing well. Progress reviewed with hospitalist Dr. White. Dr. Wang recommends nocturnal O2 by UT. I would prefer to give HBOT. Nursing cloth shearing supervisor informs that patient is awaiting transfer to [facility], Subject to availability of bed . - Additional Data Intake & Output - Last 24 hours: Intake & Output 07/29/18 07/30/18 07/31/18 08/01/18 05:59 05:59 05:59 05:59 Intake Total 580 2080 1690 1280 Output Total 2775 2617 150 1050 Balance -2195 -537 1540 230 Weight 214 lb 11.2 oz 217 lb 12.8 oz 212 lb - Labs 07/29/18 03:26 07/31/18 04:30 Diabetes panel 07/31/18 Range/Units 04:30 Sodium 140 (133-145) mmol/L Potassium 5.0 (3.3-5.1) mmol/L Chloride 106 (96-108) mmol/L Carbon Dioxide 19 L (22-30) mmol/L BUN 39 H (8-23) mg/dl Creatinine 1.5 H (0.6-1.1) mg/dl Glucose 111 H (70-105) mg/dL Calcium 9.4 (8.6-10.4) mg/dl Calcium panel 07/31/18 Range/Units 04:30 Calcium 9.4 (8.6-10.4) mg/dl Pituitary panel 07/31/18 Range/Units 04:30 Sodium 140 (133-145) mmol/L Potassium 5.0 (3.3-5.1) mmol/L Chloride 106 (96-108) mmol/L Carbon Dioxide 19 L (22-30) mmol/L BUN 39 H (8-23) mg/dl Creatinine 1.5 H (0.6-1.1) mg/dl Glucose 111 H (70-105) mg/dL Calcium 9.4 (8.6-10.4) mg/dl Adrenal panel 07/31/18 Range/Units 04:30 Sodium 140 (133-145) mmol/L Potassium 5.0 (3.3-5.1) mmol/L Chloride 106 (96-108) mmol/L Carbon Dioxide 19 L (22-30) mmol/L BUN 39 H (8-23) mg/dl Creatinine 1.5 H (0.6-1.1) mg/dl Glucose 111 H (70-105) mg/dL Calcium 9.4 (8.6-10.4) mg/dl Assessment and Plan (1) Complication due to device, implant, or graft Status: Acute Current Visit: Yes - Narrative A/P Narrative: Assessment: Satisfactory progress from wound healing point of view. HBO on hold, pending transfer to [facility]. Pulmonology input from Dr. Wagn appreciated. There was question about weight bearing on RLE by nursing staff. Plan: Continue ongoing wound care. Dressings changed today. To check with Dr. Velasquez about weight bearing status. I am following patient along with Hospitalist Physician. . - Time Spent With Patient Total time spent is greater than 50% in coordination of care (as documented) at patient's floor/unit and/or counseling patient:
[2018-07-31] MEDS: OLANZapine 5 MG TABLET PO SCH (22:10)
[2018-07-31] MEDS: FAMOTIDINE 20 MG TABLET PO SCH (22:10)
[2018-07-31] MEDS: SIMVASTATIN 10 MG TABLET PO SCH (22:11)
[2018-08-01 06:05] LABS: Blood Urea Nitrogen 37 mg/dl (8-23)
[2018-08-01] MEDS: CEFEPIME 2 GM VIAL IV SCH ×2 (06:19→12:46)
[2018-08-01] MEDS: 0.9 % SODIUM CHLORIDE 10 ML SYRINGE IV SCH ×3 (06:20→12:47)
[2018-08-01] MEDS: LEVOTHYROXINE 75 MCG TABLET PO SCH (06:55)
[2018-08-01] MEDS: clonazePAM 1 MG TABLET PO PRN ×2 (06:56→12:47)
--- NOTE | 2018-08-01 07:09 | Internal Med Progress Note ---
Medical - PN: Subj Patient information: Note initiated : 08/01/18 at 7:06 am Service Date, if different from initiated Date: [] Patient: Yanni Topete a 67 y/o F admitted on 07/18/18 for Rt Ankle Wound. Chief Complaint: [] Interval history: Ms. Topete is a 67 year old F with history of bipolar disorder, chronic kidney disease presents to the hospital today for evaluation of her right lower extremity wound. The patient had history of fall in May, at which time she twisted her ankle and developed a complex fracture of the right ankle. She was operated by Dr. Velasquez in May and underwent an open reduction and internal fixation of the fracture. The patient was discharged subsequently. The patient apparently was managing her right lower extremity wound and blister however the patient's wound got progressively worse. There was some pussy discharge and she was seen in the wound care clinic today. In the wound care clinic on speaking with the wound care physician there was pus, and the wound l ooked infected. The patient was therefore sent to the emergency room for further evaluation. In the emergency room the patient is afebrile, hemodynamically stable, labs are stable kidney function is at baseline at around 1.3 -1.4. Patient has minimal pain on the right lower extremity with movement otherwise no other acute complaints or concerns. The wound care physician is the primary provider managing this patient, patient to be taken to the OR for cleanup and debridement by Dr. Velasquez tomorrow morning. Hospitalist has been consulted to help manage the logistics of inpatient stay. Wound care physician has been consulted by the wound care provider. 07/19 Pt seen examined, no acute issues reported labs stable awaitin 07/20 Somewhat poor sleep but otherwise no complaints. Sitting in bed comfortably eating breakfast. No new pains or complaints. Had I&D and removal of hardware yesterday. 07/21 Okay. No overnight events. Had BMs last night after laxatives given. Boot dressings in place on the right ankle. No new complaints 07/22 No overnight events. Feeling better. No new complaints. Seen by wound care this morning, wound appears to need further debridement. 07/23-patient doing better. Due for surgical debridement in 24 hours. No overnight fever chills. On antibiotic coverage as per ID specialist. Ongoing wound care by Dr. Mcdonald. No concerns per staff 07/24- patient status post surgical debridement/thickness skin graft placement by Dr. mahmood today. Doing well postoperatively. Ongoing nutritional support/antibiotic coverage as per ID. No overnight fever chills or concerns per staff. Intermittently confused. Complains of postoperative pain 07/25-patient undergoing hyperbaric oxygen treatment/wound care. On antibiotic coverage as per ID. Status post debridement. Moderately confused and disoriented. Ongoing physical therapy/nutritional support 07/26-doing well. Undergoing hyperbaric oxygen treatment. No overnight fever chills nausea vomiting. No other concerns per staff. Continuing antibiotics and wound care along with PT OT 07/27-patient fell during transfer from bed after her knee buckled. Witnessed by staff members. Patient denied any pain following a fall. She continues to participate with therapies. Ongoing hyperbaric treatment/wound care/antibiotic coverage. Remains intermittently confused. No fever chills 07/28 Called by nursing shortly after 12:00am after nurse went in room to get vital signs. Patient with severe hypoxia with sats in the high 40s. Patient unresponsive. Pulse present, tachycardic. Per nurse reports of apnea in the past and has been on oxygen occasionally through the nights and while sleeping. She was immediately placed on Ambu bag and oral airway which brought her sats up to 100%. She was still unresponsive. Transitioned her from bag valve mask to 100% nonrebreather to see how she responded. She started to desat and was placed back on the [id number]. She was given Romazicon 0.2 without response and subsequently given another 0.3. Eventually she started to moan. She did s tart becoming more responsive to pain. She is placed on the nonrebreather mask with oral airway and is able to maintain airway and saturations. Her initial pH was 6.9 and CO2 over 100. She had a repeat ABGs similar and then another one which showed pH 7.25 and a CO2 of 60 when she was more responsive. She continued to become increasing responsive moving extremities spontaneously and moving eyes. No verbalizations. Given her relatively quick response it is likely that nursing was able to catch her before any significant duration of hypoxia took place, to have caused an anoxic brain injury/. Patient's CODE STATUS limited - CPR and resuscitative medications okay but no intubation and if poor prognosis then comfort care. Family was called and spent considerable amount of time discussing case with family. Given her responsiveness patient will be moved to ICU and will be placed on B iPAP. Follow-up ABG prior to being placed on BiPAP showed increasing CO2 again. Home clonazepam held. will need formal sleep study, cpap at night. ----- This morning per nursing she was little more responsive follows some commands and appeared to be answering some questions but it was more garbled speech. Now she is sleeping again and has decreased responsiveness. Saw her she did squeeze my hand on the right responded to touch the other extremities. Remains nonverbal. pupils are equal round reactive. Unable to get review of system as patient is nonverbal. Family at bedside, including her brother who is her guardian and makes her medical decisions for her, CODE STATUS further clarified and patient is a DO NOT RESUSCITATE 07/29 Patient sitting up in bed this morning awake and talkative. Denies any chest pain coughing shortness of breath nausea. 07/30 No overnight events. Patient able to maintain saturations on supplemental oxygen. Remains confused able to answer some orientation questions with redirection. 07/31 Was little agitated this morning but then calmed down and took her medications. No hostile actions. No acute issues or acute complaints. 08/01 Feeling better. No overnight events. No new complaints. Calm and Cooperative. Review of Systems: denies headache/fever/chills/nausea/vomiting/chest or abdominal pain/cough/dyspnea/diarrhea. Otherwise see above. - Constitutional Vitals: Vital Signs Temp Pulse Resp BP Pulse Ox 97.9 F 86 18 108/61 97 08/01/18 04:00 08/01/18 04:00 08/01/18 04:00 08/01/18 04:00 08/01/18 04:00 Period Temp Pulse Resp BP Sys/Hoyt Pulse Ox Last 24 Hr 97.6 F-98.5 F 75-87 16-18 108-128/61-81 94-97 Intake and Output 07/31/18 08/01/18 08/01/18 21:59 05:59 13:59 Intake Total 1280 Output Total 850 Balance 430 Weight 97.976 kg Intake & Output: Intake & Output 07/31/18 08/01/18 08/01/18 21:59 05:59 13:59 Intake Total 1280 Output Total 850 Balance 430 Weight 97.976 kg Intake: Oral 1280 Output: Void Amount 850 Other: Meal Lunch Percent of Meal Consumed 100% Urine Appearance Clear Urine Color Bright Yellow Urine Odor Normal # Voids 1 1 # Bowel Movements 1 1 Exam: General: Awake and alert, No acute Distress Eyes/N/T: EOMI Head/Neck: neck supple, CV: RRR, 1/6 SM Pulm: Clear b/l, no wheezing/rhonchi/rales Abd: soft, nontender, +BS x4 Ext: no clubbing/cyanosis, right ankle dressings and boot in place Neuro: Awake and alert, follows commands, answering questions appropriately today. Moves all extremities Skin: warm/dry Medical - PN: Obj Da - Labs CBC & Chem 7: 07/29/18 03:26 08/01/18 04:05 Labs: Abnormal Lab Results 08/01/18 07/31/18 07/30/18 04:05 04:30 10:59 Chloride 109 H Carbon Dioxide 19 L BUN 37 H 39 H Creatinine 1.4 H 1.5 H Glucose 111 H Urine Protein 100 A 07/30/18 04:00 Chloride Carbon Dioxide BUN 40 H Creatinine 1.6 H Glucose 106 H Urine Protein Meds: Medications Hydrocodone Bitart/Acetaminophen ([place] 7.5/325mg) 1 - 2 tab PO Q4HP PRN PRN Reason: Pain Cefepime HCl (Maxipime) 2 gm IV Q8H [facility]; Protocol Last Admin: 08/01/18 06:19 Dose: 2 gm Documented by: Clonazepam (Klonopin) 0.5 mg PO TIDP PRN PRN Reason: Anxiety Last Admin: 08/01/18 06:56 Dose: 0.5 mg Documented by: Docusate Sodium (Colace) 100 mg PO BIDP PRN PRN Reason: Constipation Last Admin: 07/31/18 22:11 Dose: 100 mg Documented by: Famotidine (Pepcid) 20 mg PO QHS [facility] Last Admin: 07/31/18 22:10 Dose: 20 mg Documented by: Heparin Sodium (Porcine) (Heparin) 5,000 unit SQ Q12 [facility] Last Admin: 07/31/18 22:16 Dose: 5,000 unit Documented by: Heparin Sodium (Porcine) (Heparin Flush) 2 ml IV Q12 [facility] Last Admin: 07/31/18 22:09 Dose: 2 ml Documented by: Lactobacillus Rhamnosus (Culturelle) 1 cap PO DAILY [facility] Last Admin: 07/31/18 09:22 Dose: 1 cap Documented by: Levothyroxine Sodium (Synthroid) 75 mcg PO QAMAC [facility] Last Admin: 08/01/18 06:55 Dose: 75 mcg Documented by: Lorazepam (Ativan) 1 mg IV Q2HP PRN PRN Reason: Seizure Activity or withdrawal Naloxone HCl (Narcan) 0.1 mg IV Q2MIN PRN PRN Reason: Opiate Reversal Oxcarbazepine [ Trileptal] 600 Mg Tablet 300 mg PO BID [facility] Last Admin: 07/31/18 22:12 Dose: 300 mg Documented by: Olanzapine (Zyprexa) 20 mg PO HS [facility] Last Admin: 07/31/18 22:10 Dose: 20 mg Documented by: Ondansetron HCl (Zofran) 4 mg IV Q6HP PRN PRN Reason: Nausea And Vomiting Polyethylene Glycol (Miralax) 17 gm PO DAILY PRN PRN Reason: Constipation Quetiapine Fumarate (Seroquel) 100 mg PO BID [facility] Last Admin: 07/31/18 22:11 Dose: 100 mg Documented by: Simvastatin (Zocor) 10 mg PO HS [facility] Last Admin: 07/31/18 22:11 Dose: 10 mg Documented by: Sodium Chloride (Saline Flush) 10 ml IV UD PRN PRN Reason: FLUSH Sodium Chloride (Saline Flush) 10 ml IV Q8 [facility] Last Admin: 08/01/18 06:20 Dose: 10 ml Documented by: Sodium Chloride (Saline Flush) 10 ml IV Q12 [facility] Last Admin: 07/31/18 22:11 Dose: 10 ml Documented by: Medical - PN: A/P - Time Spent With Patient Total time spent is greater than 50% in coordination of care (as documented) at patient's floor/unit and/or counseling patient: - Narrative A/P Narrative: A/P: *Hypoxic/hypercapnic Resp failure: 2/2 medications and underlying sleep apnea -rapid response night of 07/27 with severely reduced O2 sats on routine VS, duration of hypoxia unknown -REsolved -benzo's held initially, now on prn basis -off Bipap, will need CPAP nightly and will need outpt sleep study -I believe there was a consult for lsat instructor (Dr. Stanley) originally placed to clear her for HBO, however she is not undergoing HBO anymore -I did discuss the case with Dr. Stanley regarding a follow-up sleep study' he recommended nocturnal nasal cannula to see how she tolerated that until a formal sleep study and CPAP can be ordered *Encephalopathy, Metabolic: Improved, (superimposed on underlying dementia) -CT brain no acute, but with mild cerebral atrophy and white matter ischemic dz. *Bipolar d/o: home meds include clonazepam/zyprexa/seroquel *Dementia: per family has been declining over past year, memory issues and re peating herself. *Post operative infection/osteo right ankle: s/p I&D & hardware removal (07/19) -repeat I&D (07/24) *Right lower extremity infected Ulcer: -Wound car per Dr Velasquez and Dr Keane. HBO -WC with Proteus/Enterobacter/Acineo baumannii -Antibiotic Management per Dr Winter ["Recommendations: - Continue IV Cefepime 2 gm q8 hrs through PICC line - will add Bactrim-DS 1 tablet bid for coverage against Achromobacter xylosidans - Pt has a drug interaction between Seroquel and Ciprofloxacin. I spoke with Viki Lovett NP (mental health provider) who will plan to taper her Seroquel after discharge. The discharging nurse to inform Viki Lovett so that pt could have a mental health follow up appt. - I will follow the patient in ID clinic in 4 weeks and switch to PO antibiotics based on clinical response and if she has been off Seroquel. - Date and time of follow up appt as follows: 08/23/18 at 10 am Follow up labs: ESR, CRP every other week CBC, BMP once weekly] *CKD III: - *Goals of care: Duration of hypoxia unknown. Patient has been in decline over the past year per family ready. -Her brother is her guardian who makes her medical decisions for her *ppx: heparin Awaiting Placement DO NOT RESUSCITATE Medical - PN: Qual - VTE Deep Vein Thrombosis/Pulmonary Embolism Present on Admission: No
[2018-08-01] MEDS: LACTOBACILLUS 1 CAPSULE PO SCH (09:35)
[2018-08-01] MEDS: QUEtiapine 100 MG TABLET PO SCH (09:35)
[2018-08-01] MEDS: OXCARBAZEPINE 600 MG PO SCH (09:35)
[2018-08-01] MEDS: HEPARIN 5,000 UNIT/ML VIAL SQ SCH (09:35)
[2018-08-01] MEDS ORDERED: SULFAMETHOXAZOLE/TRIMETHOPRIM 1 TABLET PO SCH (21:00)
== END 2018-08-01 13:00 | DRG 463 ==
LOC: ED 09:26 → MEDSUR 14:52 → ICU 07-28 01:35 → MEDSUR 07-30 14:25
PROVIDERS: ADMIT Internal Medicine; ATTEND Internal Medicine

== ENCOUNTER 2022-04-18 17:38 | Inpatient (IN) ==
[2022-04-18 14:53] LABS: Basophils # (Auto) 0.05 K/mcL (0.00-0.30); Basophils % (Auto) 1.1 % (0.0-2.0); Eosinophils # (Auto) 0 K/mcL (0.00-0.70); Eosinophils % (Auto) 0 % (0.0-7.0); Hematocrit 40.8 % (34.1-44.9); Hemoglobin 12.5 g/dL (11.2-15.7); Lymphocytes # (Auto) 0.93 K/mcL (1.50-4.80); Lymphocytes % (Auto) 20.6 % (15.5-49.0); Mean Cell Volume 96.9 fL (80.0-100.0); Mean Corpuscular HGB Conc 30.6 g/dL (31.0-36.0); Mean Platelet Volume 9.1 fL (8.8-12.5); Monocytes # (Auto) 0.38 K/mcL (0.10-0.90); Monocytes % (Auto) 8.4 % (1.0-12.0); Neutrophils % (Auto) 69.5 % (38.0-78.0); Platelet Count 160 K/mcL (140-440); RBC 4.21 M/mcL (3.59-5.38); Red Cell Distribution Width 14.3 % (11.5-14.5); WBC 4.5 K/mcL (4.5-11.0)
[2022-04-18 15:01] LABS: ALT/SGPT 9 U/L (<40); AST/SGOT 11 U/L (<32); Albumin 3.7 gm/dL (3.2-5.2); Alkaline Phosphatase 215 U/L (39-117); Bilirubin,Total 0.3 mg/dL (0.1-1.0); Blood Urea Nitrogen 28 mg/dL (8-23); Calcium 9.3 mg/dL (8.6-10.4); Carbon Dioxide 25 mmol/L (22-30); Chloride 111 mmol/L (96-108); Globulin 3.6 gm/dL (2.2-3.7); Glomerular Filtration Rate 35; Glucose 105 mg/dL (70-105)
[2022-04-18 17:11] LABS: Estimated Average Glucose(eAG) 126 mg/dL
--- NOTE | 2022-04-18 17:26 | Brief Operative Note ---
Brief Operative Note Date of procedure: 04/18/22 Pre-op diagnosis: Left tibia infected hardware, probable osteomyelitis Post-op diagnosis: same Procedure: 1)Removal of hardware deep x 5 (1 tibial nail, 1 endcap, 3 screws) 2)I&D Grafts/Implants: No Anesthesia: GLMA Findings: poor bone quality, no gross purulence Complications: none Surgeon: Fernando Velasquez Serology Teacher: Doug Xavier Estimated blood loss (cc): 50 Specimens Removed/Pathology: other (1 tibial nail, 1 endcap, 3 screws) Condition: stable Disposition: PACU
[~2022-04-18 17:38] MED LIST: ACETAMINOPHEN 1,000 MG/100 ML BAG IV ONE; DEXAMETHASONE 10 MG/ML VIAL ONE; IPRATROPIUM/ALBUTEROL 3 ML AMPUL.NEB NEB PRN; KETAMINE 50 MG/ML Syringe (ANEST) IV ONE; LACTATED RINGERS 1,000 ML IV SCH; LACTATED RINGERS 250 ML IV PRN; LIDOCAINE HCL/PF 100 MG/5 ML SYRINGE IV ONE; MAGNESIUM SULFATE 2 GM/50 ML BAG IV ONE; MEPERIDINE 25 MG/ML VIAL IV PRN; NALOXONE HCL 0.4 MG/ML VIAL IV PRN; ONDANSETRON 4 MG/2 ML VIAL IV PRN; ONDANSETRON 4 MG/2 ML VIAL ONE; PROMETHAZINE 25 MG/ML VIAL IV PRN; PROPOFOL 200 MG/20 ML VIAL IV ONE; ceFAZolin 2 GM in DEXTROSE 5% IN WATER 50 ML IV SCH; diphenhydrAMINE 50 MG/ML VIAL IV PRN; fentaNYL 100 MCG/2 ML VIAL IV ONE
[2022-04-18] MEDS ORDERED: ZINC OXIDE TOPICAL PRN (17:43)
[2022-04-18] MEDS ORDERED: MAGNESIUM HYDROXIDE 30 ML ORAL.SUSP PO PRN (17:43)
[2022-04-18] MEDS ORDERED: [UNRECOGNIZED DRUG - OTHER] TOPICAL PRN (17:43)
[2022-04-18] MEDS ORDERED: MENTHOL TOPICAL PRN (17:43)
[2022-04-18] MEDS: fentaNYL 100 MCG/2 ML VIAL IV PRN ×2 (17:48→17:57)
--- NOTE | 2022-04-18 18:23 | XRay Report ---
CLINICAL INFORMATION: Postop hardware removal. COMPARISON: None FINDINGS: Lateral plate and screws transfix an old distal fibula fracture which is solidly unified and anatomically aligned. An incompletely unified spiral fracture of the proximal fibular diaphysis also noted. Spiral fracture of the distal tibial diaphysis shows incomplete osseous union with alignment is near-anatomic. Hardware has been removed. Moderate patellofemoral and lateral tibiofemoral degenerative change noted. Ankle mortise is normal. Mild distal soft tissue swelling appreciated. IMPRESSION: Postoperative findings as described Interpreted and Authenticated by: Dung Sanchez 04/18/22
[2022-04-18] MEDS: morphine 4 MG/ML VIAL IV PRN (19:25)
[2022-04-18] MEDS: QUEtiapine 100 MG TABLET PO SCH (21:35)
[2022-04-18] MEDS: CALCIUM CARBONATE 500 MG TAB.CHEW PO SCH (21:35)
[2022-04-18] MEDS: OLANZapine 5 MG TABLET PO SCH (21:35)
[2022-04-18] MEDS: SIMVASTATIN 10 MG TABLET PO SCH (21:35)
[2022-04-18] MEDS: DOCUSATE SODIUM 100 MG CAPSULE PO SCH (21:35)
[2022-04-18] MEDS: Diclofenac Sodium [Arthritis Pain (Diclofenac)] Gel TOPICAL SCH (21:36)
[2022-04-18] MEDS: HYDROCODONE/APAP 7.5/325MG TABLET PO PRN (21:36)
[2022-04-18] MEDS: clonazePAM 0.5 MG TABLET PO SCH (21:36)
[2022-04-19] MEDS: ceFAZolin 1 GM VIAL IV SCH ×4 (00:11→21:17)
[2022-04-19] MEDS: HYDROCODONE/APAP 7.5/325MG TABLET PO PRN ×4 (02:40→22:22)
--- NOTE | 2022-04-19 08:03 | Operative Note ---
DATE OF OPERATION: 04/18/2022 DATE OF PROCEDURE: 04/18/2022 PREOPERATIVE DIAGNOSIS: Right tibia retained hardware with probable underlying osteomyelitis due to a reopening of her medial ankle wound. POSTOPERATIVE DIAGNOSIS: Right tibia retained hardware with probable underlying osteomyelitis due to a reopening of her medial ankle wound. PROCEDURE PERFORMED: 1. Hardware removal of the right tibia including intramedullary nail, one end cap and three interlocking screws. 2. Irrigation and debridement of the medial ankle wound. SURGEON: Fernando Velasquez MD PROFESSOR OF LITERATURE: Mckinley Xavier PA-C. The expertise and technical skill of this provider were required throughout the case. The PA assisted with preoperative coordination, intraoperative retraction, wound closure, and dressing and splint application, as well as postoperative documentation and care coordination. ANESTHESIA: General. DRAINS: None. SPECIMEN: Removed hardware. ESTIMATED BLOOD LOSS: 50 mL. COMPLICATIONS: None. POSTOPERATIVE CONDITION: Stable. INDICATIONS FOR SURGERY: This is a 71-year-old female who approximately 5 months ago sustained a spiral distal third tibial fracture. She underwent intramedullary rodding by wi at that time. Fairly early on in her postoperative course, she developed an open wound with exposed hardware, one of the distal interlocking screws. This was removed in the office. She then was treated by Wound Care and the wound healed. The fracture also appeared to have healed; however, here within the last week, the wound opened up again medially and the suspicion was infected hardware, deep with probable osteomyelitis. FINDINGS AT SURGERY: There was no gross purulence noted. The medial ankle wound actually did not connect with the remaining medial distal interlocking screw. Fracture was not grossly unstable; however, upon removal of the nail it did not appear healed as previously thought. Hardware removal was complete. PROCEDURE IN DETAIL: The patient had been seen preoperatively. Informed consent had been obtained with her guardian, who is her brother, after discussion of risks and benefits of surgery. Risks including, but not limited to, bleeding, continued infection; injury to nerves, blood vessels, other surrounding structures, anesthetic risks, possible fracture, possible loss of fracture alignment and the possibility of needing further surgery. They understood these risks and wished to proceed. Correct operative site was marked and the patient was taken to the operating room and general anesthesia was induced. Right lower extremity was prepped and draped in normal sterile fashion. A timeout was performed verifying patient name, operative site, and plan. The leg was elevated for a minute and then tourniquet was inflated. Toes were covered with a stockinette. Fluoroscopy was brought in to identify the medial distal interlocking screw and this was actually significantly proximal to the medial wound that was there, previously. A stab incision was made medially. We spread down onto the screw head and then removed this; no gross purulence was noted upon removal. We also used fluoroscopy to identify the anterior wound as all of her skin around her ankle was abnormal. Again, a tonsil was used to spread down to bone and the screwdriver was used to back the anterior interlock screw out. We then went proximally. She had anterior medial proximal interlock which we made a stab incision over her prior scar and again repeated spreading down to bone using a screwdriver to remove the proximal interlock. We then used her previous midline incision with the scalpel through skin down onto the patellar tendon. We went to the medial side of the patellar tendon and found the hole from the nail and removed soft tissue to expose the proximal end cap. A screwdriver was used to remove this and then we threaded on a slap hammer and then backslapped the nail out. Fluoroscopy was used to check x-rays at the fracture site. The fracture line appeared less healed once the adarsh was removed than it appeared with the adarsh retained. However, I did not notice any mobility at the fracture site. We did curette some of the interlocking holes and this knowing from her prior surgeries that I had done, her bone quality is extremely poor. Based off of these concerns, I elected to place her in a boot, postoperatively. We irrigated with IrriSept, copiously all of the incisions. I did scrape the medial wound with a curette. After a minute, we irrigated copiously with saline, and then a Stratafix was used along the medial border of the patellar tendon to close the deep portion proximally. A 2-0 Monocryl was used for subcu. Mccaulley were used for skin. Xeroform was used over the medial wound and then a sterile dressing was applied. Tourniquet was released. She was placed in a tall walking boot, awakened, extubated, and transferred to recovery in stable condition. [email or web address] Job ID: [id number] Doc ID: [id number] Fernando Velasquez MD
[2022-04-19] MEDS: POLYETHYLENE GLYCOL 3350 17 GM PACKET PO SCH (09:12)
[2022-04-19] MEDS: FERROUS SULFATE 325 MG TABLET PO SCH (09:12)
[2022-04-19] MEDS: HYDROCHLOROTHIAZIDE 12.5 MG CAPSULE PO SCH (09:12)
[2022-04-19] MEDS: DOCUSATE SODIUM 100 MG CAPSULE PO SCH ×2 (09:12→20:48)
[2022-04-19] MEDS: LEVOTHYROXINE 75 MCG TABLET PO SCH (09:12)
[2022-04-19] MEDS: Diclofenac Sodium [Arthritis Pain (Diclofenac)] Gel TOPICAL SCH ×4 (09:13→20:50)
[2022-04-19] MEDS: clonazePAM 0.5 MG TABLET PO SCH ×2 (09:13→20:49)
[2022-04-19] MEDS: CALCIUM CARBONATE 500 MG TAB.CHEW PO SCH ×4 (09:13→20:48)
[2022-04-19] MEDS: QUEtiapine 25 MG TABLET PO SCH (09:13)
[2022-04-19] MEDS: OMEPRAZOLE 20 MG CAPSULE PO SCH (09:13)
[2022-04-19] MEDS: ASCORBIC ACID 500 MG TABLET PO SCH (09:13)
[2022-04-19] MEDS: morphine 4 MG/ML VIAL IV PRN (09:56)
--- NOTE | 2022-04-19 10:38 | EKG ---
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 Measurements Intervals [place] Rate: 70 P: 1 W[place]: 244 QRS: 20 QRSD: 121 T: 0 QT: 383 QTc: 414 Interpretive Statements Sinus rhythm Prolonged [place] interval RBBB Probable left ventricular hypertrophy Electronically Signed On 04-19-2022 10:38:29 PST by Moira Quesada D.O. /[id number]/[id number]
[2022-04-19] MEDS ORDERED: ceFAZolin 2 GM in DEXTROSE 5% IN WATER 50 ML IV SCH (11:30)
[2022-04-19] MEDS: OLANZapine 5 MG TABLET PO SCH (20:48)
[2022-04-19] MEDS: QUEtiapine 100 MG TABLET PO SCH (20:48)
[2022-04-19] MEDS: SIMVASTATIN 10 MG TABLET PO SCH (20:49)
[2022-04-20] MEDS: ceFAZolin 1 GM VIAL IV SCH ×3 (05:54→21:11)
[2022-04-20] MEDS ORDERED: ALENDRONATE SODIUM 70 MG TABLET PO SCH (06:30)
[2022-04-20] MEDS: POLYETHYLENE GLYCOL 3350 17 GM PACKET PO SCH (08:53)
[2022-04-20] MEDS: DOCUSATE SODIUM 100 MG CAPSULE PO SCH ×2 (08:55→21:03)
[2022-04-20] MEDS: FERROUS SULFATE 325 MG TABLET PO SCH (08:56)
[2022-04-20] MEDS: clonazePAM 0.5 MG TABLET PO SCH ×2 (08:56→21:13)
[2022-04-20] MEDS: LEVOTHYROXINE 75 MCG TABLET PO SCH (08:56)
[2022-04-20] MEDS: QUEtiapine 25 MG TABLET PO SCH (08:56)
[2022-04-20] MEDS: ASCORBIC ACID 500 MG TABLET PO SCH (08:57)
[2022-04-20] MEDS: OMEPRAZOLE 20 MG CAPSULE PO SCH (08:57)
[2022-04-20] MEDS: CALCIUM CARBONATE 500 MG TAB.CHEW PO SCH ×4 (08:57→21:03)
[2022-04-20] MEDS: Diclofenac Sodium [Arthritis Pain (Diclofenac)] Gel TOPICAL SCH ×4 (08:58→20:59)
[2022-04-20] MEDS: HYDROCHLOROTHIAZIDE 12.5 MG CAPSULE PO SCH (09:03)
[2022-04-20] MEDS: morphine 4 MG/ML VIAL IV PRN (10:09)
--- NOTE | 2022-04-20 11:43 | XRay Report ---
CLINICAL INFORMATION: Right PICC placement COMPARISON: Chest x-ray 06/12/2020 TECHNIQUE: Portable FINDINGS: Right PICC line tip is distally placed overlying the tricuspid valve plane. The heart size, mediastinum and pulmonary vessels are unremarkable. The lungs are clear. There are no effusions. The bones and soft tissues are within normal limits. IMPRESSION: No acute disease. PICC line tip is distally position overlying the tricuspid valve plane. Nurses were instructed to withdraw the line 7 cm Interpreted and Authenticated by: Dung Sanchez 04/20/22
[2022-04-20] MEDS: HYDROCODONE/APAP 7.5/325MG TABLET PO PRN ×2 (13:59→21:54)
[2022-04-20] MEDS: 0.9 % SODIUM CHLORIDE 10 ML SYRINGE IV PRN ×2 (14:00→15:42)
[2022-04-20] MEDS: 0.9 % SODIUM CHLORIDE 10 ML SYRINGE IV SCH (21:04)
[2022-04-20] MEDS: SIMVASTATIN 10 MG TABLET PO SCH (21:10)
[2022-04-20] MEDS: OLANZapine 5 MG TABLET PO SCH (21:10)
[2022-04-20] MEDS: QUEtiapine 100 MG TABLET PO SCH (21:13)
[2022-04-21] MEDS: ceFAZolin 1 GM VIAL IV SCH ×2 (06:00→13:34)
--- NOTE | 2022-04-21 07:44 | Orthopedic Progress Note ---
SUBJECTIVE Subjective Patient information: Note initiated : 04/21/22 at 7:41 am Service Date, if different from initiated Date: 04/20/22 Patient: Yanni Topete 71 y/o F admitted on 04/19/22 for Right Ankle Complete Hardware Removal. Chief Complaint: Mild to moderate pain. Pt concerned about weight bearing status. Constitutional Vitals: Vital Signs Temp Pulse Resp BP Pulse Ox O2 Del Method O2 Flow Rate 98.2 F 83 18 126/70 98 2 04/21/22 07:24 04/21/22 07:24 04/21/22 07:24 04/21/22 07:24 04/21/22 07:24 04/21/22 07:24 04/21/22 07:24 Period Temp Pulse Resp BP Sys/Hoyt Pulse Ox O2 Del Method O2 Flow Rate Last 24 Hr 98.1 F-98.6 F 76-95 14-20 119-148/69-98 91-98 Nasal Cannula- Room Air 2-3 Intake and Output 04/20/22 04/21/22 04/21/22 19:59 03:59 11:59 Intake Total 1200 550 Output Total 2100 350 Balance -900 200 Weight 249 lb 12.8 oz 245 lb 14.4 oz Intake & Output: Intake & Output 04/20/22 04/21/22 04/21/22 19:59 03:59 11:59 Intake Total 1200 550 Output Total 2100 350 Balance -900 200 Weight 249 lb 12.8 oz 245 lb 14.4 oz Intake: Oral 1200 550 Output: Void Amount 700 350 Emesis 1400 Other: Meal Lunch Percent of Meal Consumed 75% Urine Appearance Clear Clear Urine Color Yellow Yellow Additional findings Additional findings: bandages c/d/i NVI-distal OBJ DATA Labs CBC & Chem 7: 04/18/22 13:48 04/18/22 13:48 Labs: Abnormal Lab Results 04/18/22 04/18/22 04/18/22 13:49 13:48 13:48 MCHC 30.6 L Lymph # (Auto) 0.93 L ESR 59 H Chloride 111 H BUN 28 H Creatinine 1.5 H Alkaline Phosphatase 215 H C-Reactive Protein 1.50 H Meds: Medications Hydrocodone Bitart/Acetaminophen (Hydrocodone/Apap 7.5/325mg Tablet) 1 - 2 tab PO Q4HP PRN; Protocol PRN Reason: Per Pain Protocol Last Admin: 04/20/22 21:54 Dose: 1 tab Alendronate Sodium (Alendronate Sodium 70 Mg Tablet) 70 mg PO Th@0630 [facility] Last Admin: 04/20/22 06:48 Dose: 70 mg Ascorbic Acid (Ascorbic Acid 500 Mg Tablet) 500 mg PO QDAY [facility] Last Admin: 04/20/22 08:57 Dose: 500 mg Calcium Carbonate/Glycine (Calcium Carbonate 500 Mg Tab.Chew) 1,000 mg PO QID [facility] Last Admin: 04/20/22 21:03 Dose: 1,000 mg Cefazolin Sodium (Cefazolin 1 Gm Vial) 2 gm IV Q8H [facility] Last Admin: 04/21/22 06:00 Dose: 2 gm Clonazepam (Clonazepam 0.5 Mg Tablet) 0.5 mg PO BID [facility] Last Admin: 04/20/22 21:13 Dose: Not Given Docusate Sodium (Docusate Sodium 100 Mg Capsule) 100 mg PO BID [facility] Last Admin: 04/20/22 21:03 Dose: 100 mg Ferrous Sulfate (Ferrous Sulfate 325 Mg Tablet) 325 mg PO QDAY [facility] Last Admin: 04/20/22 08:56 Dose: 325 mg Heparin Sodium (Porcine) (Heparin Flush 10 Units/Ml 5 Ml Syringe) 2 ml IV Q12 [facility] Last Admin: 04/20/22 21:04 Dose: 2 ml Hydrochlorothiazide (Hydrochlorothiazide 12.5 Mg Capsule) 12.5 mg PO DAILY [facility] Last Admin: 04/20/22 09:03 Dose: Not Given Levothyroxine Sodium (Levothyroxine 75 Mcg Tablet) 75 mcg PO DAILY [facility] Last Admin: 04/20/22 08:56 Dose: 75 mcg Magnesium Hydroxide (Magnesium Hydroxide 30 Ml Oral.Susp) 30 ml PO QDAY PRN PRN Reason: Constipation Morphine Sulfate (Morphine 4 Mg/Ml Vial) 2 - 6 mg IV Q1HP PRN; Protocol PRN Reason: Per Pain Protocol Last Admin: 04/20/22 10:09 Dose: 4 mg Olanzapine (Olanzapine 5 Mg Tablet) 15 mg PO [facility] Last Admin: 04/20/22 21:10 Dose: 15 mg Omeprazole (Omeprazole 20 Mg Capsule) 40 mg PO QDAY [facility] Last Admin: 04/20/22 08:57 Dose: 40 mg Ondansetron HCl (Ondansetron 4 Mg/2 Ml Vial) 4 mg IV Q6HP PRN; Protocol PRN Reason: Nausea And Vomiting Last Admin: 04/20/22 15:42 Dose: 4 mg Diclofenac Sodium [ Arthritis Pain ( Diclofenac)] Gel 2 dose TOPICAL QID [facility] Last Admin: 04/20/22 20:59 Dose: Not Given Oxcarbazepine 300 Mg (Tablet) 1.5 dose PO BID [facility] Last Admin: 04/20/22 21:06 Dose: 1.5 dose Polyethylene Glycol (Polyethylene Glycol 3350 17 Gm Packet) 17 gm PO QDAY [facility] Last Admin: 04/20/22 08:53 Dose: 17 gm Quetiapine Fumarate (Quetiapine 25 Mg Tablet) 12.5 mg PO QAM [facility] Last Admin: 04/20/22 08:56 Dose: 12.5 mg Quetiapine Fumarate (Quetiapine 100 Mg Tablet) 200 mg PO QHS [facility] Last Admin: 04/20/22 21:13 Dose: Not Given Simvastatin (Simvastatin 10 Mg Tablet) 10 mg PO HS [facility] Last Admin: 04/20/22 21:10 Dose: 10 mg Sodium Chloride (0.9 % Sodium Chloride 10 Ml Syringe) 10 ml IV UD PRN PRN Reason: FLUSH Last Admin: 04/20/22 15:42 Dose: 10 ml Sodium Chloride (0.9 % Sodium Chloride 10 Ml Syringe) 10 ml IV Q12 [facility] Last Admin: 04/20/22 21:04 Dose: 10 ml A/P Assessment and plan (1) S/P hardware removal: Status: Acute Narrative A/P Narrative: 2 days s/p R tibial IM nail removal-stable Mobilize with PT Cont IV abx tx. tentative discharge to SNF 1-2 days. Time Spent With Patient Time: Total time spent is greater than 50% in coordination of care (as documented) at patient's floor/unit and/or counseling patient: Total time spent with greater than 50% in coordination of care (as documented) at patient's floor/unit and/or counseling patient:: less than 15 minutes
--- NOTE | 2022-04-21 07:52 | Discharge Summary ---
Discharge Provider Provider IMPORTANT FOLLOW-UP INFORMATION FOR PCP: Patient information: Note initiated : 04/21/22 at 7:49 am Service Date, if different from initiated Date: [] Patient: Yanni Topete 71 y/o F admitted on 04/19/22 for Right Ankle Complete Hardware Removal. Chief Complaint: No c/o. Pt is somulent today. Date of admission: 04/19/22 11:25 Discharge date: 04/21/22 Primary care physician: Dung Hunter PA-C COURSE Hospital Course Hospital course: Pt was admitted for a R tibial IM nail removal for concern of infected Hardware staus post IM nail for tibial shaft fx. Pt spent 3 nights in the hospital for IV abx and discharged to SNF. Discharge diagnosis: R tibia infected hardware. Time Spent with Patient Time attestation: Total time spent providing and/or coordinating discharge services: Time spent: Less than 30 minutes Physical Examination Exam Clean and dry: Yes Weight bearing status: partial DC Instructions-General Patient Instructions Dressing Care: May shower in 2 days Discharge Plan Patient/Caregiver Discharge Instructions Activity: increase activity as tolerated Instructions: Hardware Removal (DC) Activity Restrictions/Additional Instructions: Discharge Instructions: 50% Weight bearing with boot on whenever out of bed. Assess dressing daily and change as needed using xeroform, 4X4, kerlix and Johnnie. Keep dressing clean and dry. No soaking in tub/pool/jacuzzi. You may start showering on post op day #2, cover dressing on her right lower extremity. To avoid constipation while taking any narcotic pain medication, take an over the counter stool softener/laxative. Use your ice packs as directed, on for 20 minutes at a time, throughout the day. Ice and elevation will help with pain and swelling. If you have any questions or concerns call your orthopedic surgeon before going to the emergency room. [facility] has a secondary school teacher physician 24 hours per day/7 days per week and can be reached at [phone]. Call for fevers above 100.5 or pain not controlled by medication. Your prescriptions are with your discharge information. Take Aspirin as prescribed to prevent blood clots (see medication list). This discharge packet is provided to you to help keep you informed about your care. We want to ensure you get everything you need when you go home. You will also be receiving a call from us in a few days to follow up with you and see how you are doing since your discharge. This gives us a chance to listen to any concerns you maybe experiencing since you were discharged or any additional needs you may have, as well as providing us feedback on your care experience. We strive to always provide excellent care and thank you for your feedback and for choosing [facility]. Prescriptions: New aspirin 81 mg tablet,delayed release (DR/EC) 81 mg PO BID Qty: 60 0RF cefazolin 1 gram Recon Soln 2 gm IV Q8H Qty: 45 0RF Continued quetiapine 100 mg tablet 200 mg PO QHS Calmoseptine 0.44-20.6 % ointment in packet 1 applic topical BID PRN (Reason: Affected Area) polyethylene glycol 3350 [Miralax] 17 gram/dose powder 17 g PO QDAY omeprazole 20 mg capsule,delayed release(DR/EC) 40 mg PO QDAY olanzapine 5 mg tablet 15 mg PO HS Rx Instructions: 5mg in the afternoon. tramadol 50 mg tablet 75 mg PO BID PRN (Reason: Pain) clonazepam 0.5 mg tablet 0.5 mg PO BID diclofenac sodium [Arthritis Pain (diclofenac)] 1 % gel 2 g TOPICAL QID Rx Instructions: apply to single elbow, wrist or hand; for hand includes palm/fingers/back of hand alendronate 70 mg tablet 70 mg PO QWEEK Rx Instructions: 0630 on quetiapine 25 mg tablet 12.5 mg PO QAM oxcarbazepine 300 mg tablet 450 mg PO BID acetaminophen 500 MG tablet 650 mg PO Q4-6HP PRN (Reason: Pain) levothyroxine 75 MCG tablet 75 mcg PO DAILY pravastatin 20 MG tablet 20 mg PO HS calcium carbonate 200 mg calcium (500 mg) tablet,chewable 1,000 mg PO QID magnesium hydroxide [Milk of Magnesia] 400 mg/5 mL Suspension 30 ml PO QDAY PRN (Reason: Constipation) ascorbic acid (vitamin C) [Vitamin C] 500 mg Tablet 500 mg PO QDAY ferrous sulfate 325 mg (65 mg iron) Tablet 325 mg PO QDAY docusate sodium 100 mg Capsule 100 mg PO BID hydrochlorothiazide 12.5 mg Tablet 12.5 mg PO QDAY Other Ambulatory Orders: OT Discharge Order (Routine) Location: None Selected Ordered By: Doug Xavier Outpatient PICC Care (Daily) Location: None Selected Ordered By: Doug Xavier Physical Therapy Discharge Order (Routine) Location: None Selected Ordered By: Doug Xavier Walker (ONCE) Location: None Selected Ordered By: Doug Xavier Follow Up Plan Follow up with: Doug Xavier PA-C [Physician Environment Coordinator] - 05/01/22 2:30 pm Patient Disposition: Xfer SNF Rehab Potential: Fair Overall status at discharge: patient is not back to baseline Discharge Orders: Discharge Order (Routine); Ordered 04/21/22 Ordered By: Doug Xavier Pending Pending Pending: Resuscitation Status Resuscitate (Full Code) Diet Consistent Carbohydrate Diet Start SunApr 18 2051 Hydrocodone Bitart/Acetaminophen (Hydrocodone/Apap 7.5/325mg Tablet) 1 - 2 tab PO Q4HP PRN; Protocol PRN Reason: Per Pain Protocol Last Admin: 04/20/22 21:54 Dose: 1 tab Documented By: Admin: 04/20/22 13:59 Dose: 2 tab Documented By: Admin: 04/19/22 22:22 Dose: 1 tab Documented By: Admin: 04/19/22 20:51 Dose: 1 tab Documented By: Admin: 04/19/22 09:54 Dose: 1 tab Documented By: Admin: 04/19/22 02:40 Dose: 1 tab Documented By: Admin: 04/18/22 21:36 Dose: 1 tab Documented By: MARIA Alendronate Sodium (Alendronate Sodium 70 Mg Tablet) 70 mg PO Th@0630 [facility] Last Admin: 04/20/22 06:48 Dose: 70 mg Documented By: FRANCES Ascorbic Acid (Ascorbic Acid 500 Mg Tablet) 500 mg PO QDAY [facility] Last Admin: 04/20/22 08:57 Dose: 500 mg Documented By: Admin: 04/19/22 09:13 Dose: 500 mg Documented By: JOSEPHINE Calcium Carbonate/Glycine (Calcium Carbonate 500 Mg Tab.Chew) 1,000 mg PO QID [facility] Last Admin: 04/20/22 21:03 Dose: 1,000 mg Documented By: Admin: 04/20/22 16:36 Dose: 1,000 mg Documented By: Admin: 04/20/22 13:59 Dose: 1,000 mg Documented By: Admin: 04/20/22 08:57 Dose: 1,000 mg Documented By: Admin: 04/19/22 20:48 Dose: 1,000 mg Documented By: Admin: 04/19/22 17:45 Dose: 1,000 mg Documented By: Admin: 04/19/22 15:11 Dose: 1,000 mg Documented By: Admin: 04/19/22 09:13 Dose: 1,000 mg Documented By: Admin: 04/18/22 21:35 Dose: 1,000 mg Documented By: MARIA Cefazolin Sodium (Cefazolin 1 Gm Vial) 2 gm IV Q8H [facility] Admin: 04/21/22 06:00 Dose: 2 gm Documented By: Admin: 04/20/22 21:11 Dose: 2 gm Documented By: Admin: 04/20/22 13:59 Dose: 2 gm Documented By: Admin: 04/20/22 05:54 Dose: 2 gm Documented By: Admin: 04/19/22 21:17 Dose: 2 gm Documented By: Admin: 04/19/22 17:45 Dose: 2 gm Documented By: JOSEPHINE Clonazepam (Clonazepam 0.5 Mg Tablet) 0.5 mg PO BID [facility] Admin: 04/20/22 21:13 Dose: Not Given Documented By: Admin: 04/20/22 08:56 Dose: 0.5 mg Documented By: Admin: 04/19/22 20:49 Dose: 0.5 mg Documented By: Admin: 04/19/22 09:13 Dose: 0.5 mg Documented By: Admin: 04/18/22 21:36 Dose: 0.5 mg Documented By: MARIA Docusate Sodium (Docusate Sodium 100 Mg Capsule) 100 mg PO BID [facility] Admin: 04/20/22 21:03 Dose: 100 mg Documented By: Admin: 04/20/22 08:55 Dose: 100 mg Documented By: Admin: 04/19/22 20:48 Dose: 100 mg Documented By: Admin: 04/19/22 09:12 Dose: 100 mg Documented By: Admin: 04/18/22 21:35 Dose: 100 mg Documented By: MARIA Ferrous Sulfate (Ferrous Sulfate 325 Mg Tablet) 325 mg PO QDAY [facility] Last Admin: 04/20/22 08:56 Dose: 325 mg Documented By: Admin: 04/19/22 09:12 Dose: 325 mg Documented By: JOSEPHINE Heparin Sodium (Porcine) (Heparin Flush 10 Units/Ml 5 Ml Syringe) 2 ml IV Q12 [facility] Last Admin: 04/20/22 21:04 Dose: 2 ml Documented By: Admin: 04/20/22 14:03 Dose: 2 ml Documented By: Admin: 04/20/22 14:02 Dose: 2 ml Documented By: JOCY Hydrochlorothiazide (Hydrochlorothiazide 12.5 Mg Capsule) 12.5 mg PO DAILY [facility] Last Admin: 04/20/22 09:03 Dose: Not Given Documented By: Admin: 04/19/22 09:12 Dose: 12.5 mg Documented By: JOSEPHINE Levothyroxine Sodium (Levothyroxine 75 Mcg Tablet) 75 mcg PO DAILY [facility] Last Admin: 04/20/22 08:56 Dose: 75 mcg Documented By: Admin: 04/19/22 09:12 Dose: 75 mcg Documented By: JOSEPHINE Morphine Sulfate (Morphine 4 Mg/Ml Vial) 2 - 6 mg IV Q1HP PRN; Protocol PRN Reason: Per Pain Protocol Last Admin: 04/20/22 10:09 Dose: 4 mg Documented By: Admin: 04/19/22 09:56 Dose: 4 mg Documented By: Admin: 04/18/22 19:25 Dose: 2 mg Documented By: FRANCES Olanzapine (Olanzapine 5 Mg Tablet) 15 mg PO [facility] Last Admin: 04/20/22 21:10 Dose: 15 mg Documented By: Admin: 04/19/22 20:48 Dose: 15 mg Documented By: Admin: 04/18/22 21:35 Dose: 15 mg Documented By: MARIA Omeprazole (Omeprazole 20 Mg Capsule) 40 mg PO QDAY [facility] Last Admin: 04/20/22 08:57 Dose: 40 mg Documented By: Admin: 04/19/22 09:13 Dose: 40 mg Documented By: JOSEPHINE Ondansetron HCl (Ondansetron 4 Mg/2 Ml Vial) 4 mg IV Q6HP PRN; Protocol PRN Reason: Nausea And Vomiting Last Admin: 04/20/22 15:42 Dose: 4 mg Documented By: JOCY Diclofenac Sodium [ Arthritis Pain ( Diclofenac)] Gel 2 dose TOPICAL QID [facility] Admin: 04/20/22 20:59 Dose: Not Given Documented By: Admin: 04/20/22 15:32 Dose: Not Given Documented By: Admin: 04/20/22 12:12 Dose: Not Given Documented By: Admin: 04/20/22 08:58 Dose: Not Given Documented By: Admin: 04/19/22 20:50 Dose: Not Given Documented By: Admin: 04/19/22 15:48 Dose: Not Given Documented By: Admin: 04/19/22 12:49 Dose: Not Given Documented By: Admin: 04/19/22 09:13 Dose: Not Given Documented By: Admin: 04/18/22 21:36 Dose: Not Given Documented By: MARIA Oxcarbazepine 300 Mg (Tablet) 1.5 dose PO BID [facility] Admin: 04/20/22 21:06 Dose: 1.5 dose Documented By: LEXY Polyethylene Glycol (Polyethylene Glycol 3350 17 Gm Packet) 17 gm PO QDAY [facility] Admin: 04/20/22 08:53 Dose: 17 gm Documented By: Admin: 04/19/22 09:12 Dose: 17 gm Documented By: JOSEPHINE Quetiapine Fumarate (Quetiapine 25 Mg Tablet) 12.5 mg PO QAM [facility] Admin: 04/20/22 08:56 Dose: 12.5 mg Documented By: Admin: 04/19/22 09:13 Dose: 12.5 mg Documented By: JOSEPHINE Quetiapine Fumarate (Quetiapine 100 Mg Tablet) 200 mg PO QHS [facility] Admin: 04/20/22 21:13 Dose: Not Given Documented By: Admin: 04/19/22 20:48 Dose: 200 mg Documented By: Admin: 04/18/22 21:35 Dose: 200 mg Documented By: MARIA Simvastatin (Simvastatin 10 Mg Tablet) 10 mg PO HS [facility] Last Admin: 04/20/22 21:10 Dose: 10 mg Documented By: Admin: 04/19/22 20:49 Dose: 10 mg Documented By: Admin: 04/18/22 21:35 Dose: 10 mg Documented By: MARIA Sodium Chloride (0.9 % Sodium Chloride 10 Ml Syringe) 10 ml IV UD PRN PRN Reason: FLUSH Last Admin: 04/20/22 15:42 Dose: 10 ml Documented By: Admin: 04/20/22 14:00 Dose: 10 ml Documented By: JOCY Sodium Chloride (0.9 % Sodium Chloride 10 Ml Syringe) 10 ml IV Q12 [facility] Last Admin: 04/20/22 21:04 Dose: 10 ml Documented By: LEXY Shift Summary 04/21/22 05:08 Shift Summary by Jeffery Colbert Pt has rested very well - somnolent on & off. RT leg pain min - [place] 7.5 (1) PO given x1 @ 2155. No N/V. No BM - she states she had a BM on day of admit (). Up to BSC to void, & sm incont. TX's mostly stable w/ mod asst of 1. (I) off-loading & turning to LT side. Air casty boot RT foot, w/ johnnie wrap - C,D,I. RLE up on pillows in bed. Saline lock to her LT F/A - flushed & patent. 2 lumen PICC RT upper arm - flushed & patent. Pt has sleep apnea and snores - SPO2 has dropped sig when she removes her Oxy-mask. SPO2 mid to high 90's W O2 2L via Oxy mask. VS - WNL w/ O2. She is very drowsy - awakes confused, yet re- orients once awake. Pt is A&O x3 (not day or date), calm, pleasant, & cooperative. Bed alarm in use 2nd to confusion @ times. Initialized on 04/21/22 05:08 - END OF NOTE
[2022-04-21] MEDS: clonazePAM 0.5 MG TABLET PO SCH (08:53)
[2022-04-21] MEDS: DOCUSATE SODIUM 100 MG CAPSULE PO SCH (08:53)
[2022-04-21] MEDS: CALCIUM CARBONATE 500 MG TAB.CHEW PO SCH ×2 (08:55→12:56)
[2022-04-21] MEDS: FERROUS SULFATE 325 MG TABLET PO SCH (08:55)
[2022-04-21] MEDS: HYDROCHLOROTHIAZIDE 12.5 MG CAPSULE PO SCH (08:55)
[2022-04-21] MEDS: LEVOTHYROXINE 75 MCG TABLET PO SCH (08:55)
[2022-04-21] MEDS: ASCORBIC ACID 500 MG TABLET PO SCH (08:55)
[2022-04-21] MEDS: QUEtiapine 25 MG TABLET PO SCH (08:55)
[2022-04-21] MEDS: OMEPRAZOLE 20 MG CAPSULE PO SCH (08:56)
[2022-04-21] MEDS: 0.9 % SODIUM CHLORIDE 10 ML SYRINGE IV SCH (08:56)
[2022-04-21] MEDS: POLYETHYLENE GLYCOL 3350 17 GM PACKET PO SCH (08:57)
[2022-04-21] MEDS: Diclofenac Sodium [Arthritis Pain (Diclofenac)] Gel TOPICAL SCH ×2 (09:52→12:59)
[2022-04-21] MEDS: HYDROCODONE/APAP 7.5/325MG TABLET PO PRN (09:52)
--- NOTE | 2022-04-21 12:10 | Internal Medicine Consult Note ---
HPI Date of Consult Consult Date: 04/21/22 Primary Care Provider: Dung Hunter PA-C Consult Narrative Reason for consult: Confusion and hypoxia. cc:: CC: Fernando Barnes Eva Patient presented to the hospital on the third for right tibia retained hardware with probable underlying osteodue to reopening of medial ankle wound. Patient had a hardware removal including intramedullary nail and An interlocking screws and irrigation debridement on third. Last night she desatted into the 80s. She is found to be snoring and having apneic episodes. Patient do not became very drowsy and did have confusion as well. Patient does have underlying dementia. Per history patient has history of obstructive sleep apnea supposed to be on CPAP machine. Also patient does take tramadol at times and states she is sensitive to narcotics. Last IV morphine was yesterday morning but she did get a [place] 7.5 in the evening. Altered mental state and hypoxia likely combination of JULIO without CPAP and sensitivity to narcotics, possible as contributor. She also had vomiting yesterday and could potentially have had aspiration. Chest x-ray pending. Patient says she has a mild cough. Nonproductive. No fevers chills headaches shortness of breath. No chest pain. She is currently awake and placed on 1 L nasal cannula this morning and now we have put her on room air and she is maintaining good sats. On a previous hospitalization 2018 she was felt to have hypoxic hypercapnic respite failure secondary to her sleep apnea and was started on CPAP at that time. update: f/u after several hours, pt is satting well on room air, especially when awake. Review of Systems: Pertinent positives as above. Denies headache/fever/chills/nausea/vomiting/chest or abdominal pain/diarrhea. Remaining 10 point review of system reviewed negative PFSH PFSH All Active Problems S/P hardware removal (Acute) Obstructive sleep apnea (Chronic) Polycystic kidney disease (Chronic) History of burning on urination (Chronic) Chronic renal failure, stage 3 (moderate) (Chronic) IBS (irritable bowel syndrome) (Chronic) Colitis (Chronic) Hypothyroidism (Chronic) Bipolar disorder (Chronic) Groin rash (Chronic) Leg heaviness (Chronic) Bladder pain (Chronic) Renal insufficiency (Chronic) Preventative health care (Chronic) Diabetes mellitus (Chronic) GERD (gastroesophageal reflux disease) (Chronic) Bronchitis (Chronic) Hip pain (Chronic) Infection of joint of ankle (Acute) Complication due to device, implant, or graft (Acute) Medical History Bipolar disorder Bladder pain Bronchitis Chronic renal failure, stage 3 (moderate) Colitis Diabetes mellitus GERD (gastroesophageal reflux disease) Groin rash Hip pain History of burning on urination Hypothyroidism IBS (irritable bowel syndrome) Leg heaviness Obstructive sleep apnea Polycystic kidney disease Preventative [facility] care Renal insufficiency Surgical History (Updated 04/21/22 @ 07:43 by Doug Xavier PA-C) History of hip surgery Hip repair Social History smoking status: Never smoker alcohol intake frequency: does not drink substance use type: does not use seatbelt use: always MEDS/ALLERGIES Home Medications and Allergies Home Medications Medication Instructions Recorded Confirmed Type acetaminophen 500 mg tablet 650 mg PO Q4-6HP PRN Pain 06/03/18 04/14/22 History levothyroxine 75 mcg tablet 75 mcg PO DAILY 06/03/18 04/14/22 History pravastatin 20 mg tablet 20 mg PO HS 06/03/18 04/14/22 History quetiapine 100 mg tablet 200 mg PO QHS 12/05/18 04/14/22 History clonazepam 0.5 mg tablet 0.5 mg PO BID 03/19/19 04/14/22 History alendronate 70 mg tablet 70 mg PO QWEEK 03/22/20 04/14/22 History diclofenac sodium 1 % topical gel 2 g topical QID 03/22/20 04/14/22 History (Arthritis Pain (diclofenac)) oxcarbazepine 300 mg tablet 450 mg PO BID 03/22/20 04/14/22 History quetiapine 25 mg tablet 12.5 mg PO QAM 03/22/20 04/14/22 History calcium carbonate 200 mg calcium 1,000 mg PO QID 10/26/20 04/14/22 History (500 mg) chewable tablet menthol 0.44 %-zinc oxide 20.6 % 1 applic topical BID PRN Affected 10/26/20 04/14/22 History topical ointment in packet Area (Calmoseptine) omeprazole 20 mg capsule,delayed 40 mg PO QDAY 10/26/20 04/14/22 History release polyethylene glycol 3350 17 17 g PO QDAY 10/26/20 04/14/22 History gram/dose oral powder (Miralax) olanzapine 5 mg tablet 15 mg PO HS 10/19/21 04/14/22 History tramadol 50 mg tablet 75 mg PO BID PRN Pain 10/19/21 04/14/22 History ascorbic acid (vitamin C) 500 mg 500 mg PO QDAY 04/14/22 04/14/22 History tablet (Vitamin C) docusate sodium 100 mg capsule 100 mg PO BID 04/14/22 04/14/22 History ferrous sulfate 325 mg (65 mg 325 mg PO QDAY 04/14/22 04/14/22 History iron) tablet hydrochlorothiazide 12.5 mg tablet 12.5 mg PO QDAY 04/14/22 04/14/22 History magnesium hydroxide 400 mg/5 mL 30 ml PO QDAY PRN Constipation 04/14/22 04/14/22 History oral suspension (Milk of Magnesia) aspirin 81 mg tablet,delayed 81 mg PO BID #60 tabs 04/21/22 Rx release cefazolin 1 gram solution for 2 gm IV Q8H #45 ea 04/21/22 Rx injection Allergies Allergy/AdvReac Type Severity Reaction Status Date / Time chlorpromazine Allergy Mild Hives Verified 10/19/21 11:20 [From Thorazine] alcohol Allergy Unknown Unknown Verified 10/19/21 11:20 EXAM Constitutional Vitals: Temp Pulse Resp BP Pulse Ox O2 Del Method O2 Flow Rate 98.8 F 79 18 100/62 94 1 04/21/22 11:31 04/21/22 11:31 04/21/22 11:31 04/21/22 11:31 04/21/22 11:31 04/21/22 11:31 04/21/22 11:31 Exam: General: Alert, Awake, No acute Distress Eyes/N/T: EOMI, PERRL, Head/Neck: neck supple, normocephalic atraumatic CV: RRR, No murmurs, normal s1/s2 Pulm: Mild rales right base l, no wheezing Abd: soft, nontender, +BS x4 Ext: no clubbing/cyanosis/edema Neuro: Alert, no focal deficits, moves all extremities, CN 2-12 grossly intact, symmetrical strength b/l upper/lower, sensations intact b/l upper/lower Skin: warm/dry A/P Narrative A/P Narrative: A: *Encephalopathy, acute on chronic: likely 2/2 hypoxia from being w/o cpap machine and underlying dementia contributing and probably sensitivity to narcotics -better this morning *Acute hypoxic respiratory failure: 2/2 sleep apneic episodes, not on home cpap, possible sensitivity to narcotics,?aspiration *JULIO, cpap: *Dementia: *Bipolar d/o: *CKD III: *Hypothyroidism: *GERD: ppi * P: -wean off O2 -stat cxr, further recs pending results -change norco to tramadol -pt to wear home cpap qhs -IS -change clonazepam to prn - -CM for placement -pt/ot -ppx: per ortho Time Spent With Patient Time: Total time spent is greater than 50% in coordination of care (as documented) at patient's floor/unit and/or counseling patient: Total time spent with greater than 50% in coordination of care (as documented) at patient's floor/unit and/or counseling patient:: Greater than 70 minutes
[2022-04-21] MEDS ORDERED: traMADol 50 MG TABLET PO PRN (12:11)
[2022-04-21] MEDS ORDERED: clonazePAM 0.5 MG TABLET PO PRN (12:11)
--- NOTE | 2022-04-21 12:32 | XRay Report ---
CLINICAL INFORMATION: Hypoxia COMPARISON: 04/20/2022 TECHNIQUE: Portable FINDINGS: Right PICC line tip is now optimally positioned within the SVC. The heart is moderately enlarged but unchanged. Mediastinum and pulmonary vessels are normal. Small infiltrate seen in the left lateral base. Small left pleural effusion noted. IMPRESSION: Small infiltrate in the left lateral base with associated small effusion. Interpreted and Authenticated by: Dung Sanchez 04/21/22
[2022-04-21] MEDS ORDERED: FUROSEMIDE 20 MG/2 ML VIAL IV ONE (13:21)
== END 2022-04-21 14:50 | DRG 495 ==
LOC: SUR 17:38 → MEDSUR 18:29
PROVIDERS: ADMIT Orthopaedic Surgery; ATTEND Orthopaedic Surgery